=== PATIENT | male | born 1945 | race Caucasian/White ===

== ENCOUNTER 2016-10-14 09:16 | Day surgery (SDC) | payer OTHER ==
[~2016-10-14 09:16] MED LIST: Lactated Ringers 1,000 ML IV SCH; Lidocaine 2% 5 ML SDV ONE; Propofol 200 MG/20 ML SDV ONE
--- NOTE | 2016-10-14 09:51 | PCM.PREANE ---
Preanesthetic Assessment - Anesthesia/Transfusion/Family Hx Anesthesia History: Prior Anesthesia Without Reaction Family History of Anesthesia Reaction: No Transfusion History: No Prior Transfusion(s) Intubation History: Unknown - Review of Systems General: No Symptoms Pulmonary: No Symptoms Cardiovascular: No Symptoms Gastrointestinal: Diarrhea Neurological: No Symptoms Other: Reports: None - Physical Assessment NPO Status Date: 10/13/16 NPO Status Time: 21:30 O2 Sat by Pulse Oximetry: 99 Respiratory Rate: 16 Vital Signs: Last Vital Signs Temp 36.5 C 10/14/16 09:43 Pulse 76 10/14/16 09:43 Resp 16 10/14/16 09:43 BP 156/93 H 10/14/16 09:43 Pulse Ox 99 10/14/16 09:43 Height: 1.75 m Weight: 61.689 kg ASA Class: 3 Mental Status: Alert & Oriented x3 Airway Class: Mallampati = 2 Dentition: Reports: Normal Dentition, Partial (sides) Thyro-Mental Finger Breadths: 2 Mouth Opening Finger Breadths: 3 ROM/Head Extension: Limited/Partial Lungs: Clear to auscultation, Normal respiratory effort Cardiovascular: Regular Rate, Regular Rhythm - Allergies Allergies/Adverse Reactions: Allergies Allergy/AdvReac Type Severity Reaction Status Date / Time No Known Allergies Allergy Verified 09/27/13 15:34 - Blood Blood Available: No - Anesthesia Plan Pre-Op Medication Ordered: None - Acknowledgements Anesthesia Type Planned: MAC Pt an Appropriate Candidate for the Planned Anesthesia: Yes Alternatives and Risks of Anesthesia Discussed w Pt/Guardian: Yes Pt/Guardian Understands and Agrees with Anesthesia Plan: Yes PreAnesthesia Questionnaire Cardiovascular History: Reports: CAD, High Cholesterol, Hypertension, PVD Other Cardiovascular History: coronary artherosclerosis Respiratory History: Reports: Sleep Apnea Other Respiratory History: sleep apnea in the past (had uvuloplasty for this) Gastrointestinal History: Reports: Chronic Diarrhea, Colon Polyp, Irritable Bowel Syndrome Genitourinary History: Reports: Renal Calculus Other Genitourinary History: h/o prostate cancer 4 years ago wit radical prostatectomy Musculoskeletal History: Reports: Arthritis, Fracture, Osteoporosis Other Musculoskeletal History: hx fx hand Hematologic History: Reports: Anemia Oncologic (Cancer) History: Reports: Basal Cell Carcinoma, Prostate Dermatologic History: Reports: Other (See Below) Other Dermatologic History: raynauds - Past Surgical History Head Surgeries/Procedures: Reports: None HEENT Surgical History: Reports: Cataract Surgery, Tonsillectomy, Other (See Below) Other HEENT Surgeries/Procedures: hx cataract surgery and eye surgery for infection, hx of uvuloplasty with tonsillectomy Cardiovascular Surgical History: Reports: Coronary Artery Bypass (x2 5 years ago ), Vascular Surgery ( left fem-pop bypass 5 years ago) GI Surgical History: Reports: Appendectomy, Colonoscopy Male Surgical History: Reports: Prostatectomy Dermatological Surgical History: Reports: Skin Biopsy - SUBSTANCE USE Smoking Status *Q: Former Smoker Tobacco Use Within Last Twelve Months: No Recreational Drug Use History: No - HOME MEDS Home Medications: Home Meds Aspirin [Morton Aspirin] 81 mg PO DAILY 10/12/16 [History] Cholecalciferol (Vitamin D3) [Vitamin D3] 1,000 units PO DAILY 10/12/16 [History ] Leuprolide [Lupron Depot 3-Month] 1 injection IM ASDIRECTED 10/12/16 [History] Lisinopril 10 mg PO BEDTIME 10/12/16 [History] Loperamide HCl [Imodium A-D] 2 mg PO ASDIRECTED PRN 10/12/16 [History] Multivitamin [Multivitamins] 1 tab PO DAILY 10/12/16 [History] Simvastatin [Zocor] 40 mg PO DAILY 10/12/16 [History] - CURRENT (IN HOUSE) MEDS Current Meds: Current Medications Lactated Ringer's (Ringers, Lactated) 1,000 mls @ 125 mls/hr IV ASDIRECTED [facility] Last Admin: 10/14/16 09:41 Dose: 125 mls/hr Discontinued Medications Lidocaine (Xylocaine-Mpf 2%) Confirm Administered Dose 5 ml .ROUTE .STK-MED ONE Stop: 10/14/16 07:35 Propofol (Diprivan 20 Ml) Confirm Administered Dose 400 mg .ROUTE .STK-MED ONE Stop: 10/14/16 07:35
[2016-10-14] MEDS ORDERED: Lactated Ringers 1,000 ML IV SCH (11:15)
--- NOTE | 2016-10-14 11:17 | PCM.OPNOTE ---
- General Post-Op/Procedure Note Date of Surgery/Procedure: 10/14/16 Operative Procedure(s): Colonoscopy Pre Op Diagnosis: Change in bowel habits. Personal history of colon polyps. Post-Op Diagnosis: No evidence of neoplasia Anesthesia Technique: MAC (ASA III) Primary Surgeon: Andrew Moreland Condition: Good Free Text/Narrative:: Dictation [id number] CPT [id number]
--- NOTE | 2016-10-14 11:35 | PCM.POSTAN ---
POST ANESTHESIA ASSESSMENT - MENTAL STATUS Mental Status: alert, oriented - RESPIRATORY Respiratory Status: respiratory rate WNL, airway patent, O2 saturation stable - CARDIOVASCULAR CV Status: pulse rate WNL, blood pressure stable - GASTROINTESTINAL GI Status: no symptoms - POST OP HYDRATION Hydration Status: adequate & stable - OBSERVATIONS Free Text/Narrative:: no anesthesia problems
[2016-10-14 11:46] VITALS: BP 122/68
--- NOTE | 2016-10-14 13:54 | OR ---
SURGEON: Andrew Moreland M.D. DATE OF PROCEDURE: 10/14/2016 OPERATION PERFORMED: Colonoscopy. ANESTHESIA: MAC. ASA CLASSIFICATION: III. PREOPERATIVE DIAGNOSES: 1. Change in bowel habits. 2. Personal history of colon polyps. POSTOPERATIVE DIAGNOSIS: No evidence of neoplasia. DESCRIPTION OF PROCEDURE: The patient was taken to the endoscopy room and positioned on the endoscopy table in the left lateral decubitus position. Time-out was called for appropriate identification of the patient and procedure. Monitored anesthesia care was provided. The colonoscope was inserted into the rectum and advanced with minimal difficulty to the cecum, where the colonoscope was retroflexed to visualize the ascending colon from below. The colonoscope was then straightened and slowly withdrawn. The cecum, ascending colon, hepatic flexure, transverse colon, splenic flexure, descending colon, sigmoid colon, and rectum were very well visualized. No tumors, polyps, diverticula, or angiodysplastic changes were noted anywhere throughout the lower gastrointestinal tract. The colonoscope was withdrawn to the rectum and retroflexed to visualize the anal orifice from above. Again, no tumors or polyps were seen and there were no acute hemorrhoidal changes. The colonoscope was straightened, the rectum aspirated, and the colonoscope removed. The patient tolerated the procedure well and was taken to the recovery room in stable condition. TERRI / LIVIA /[id number]
== END 2016-10-14 12:25 | disposition home or self-care (01) ==
LOC: MW.SDS 09:16
PROVIDERS: ATTEND Surgery
PROC: 0DJD8ZZ Inspection of Lower Intestinal Tract, Via Natural or Artificial Opening Endoscopic (ICD-10-PCS; principal; 2016-10-14)
DX: Z12.11 Encounter for screening for malignant neoplasm of colon (principal); Z86.010 Personal history of colon polyps; D64.9 Anemia, unspecified; N52.9 Male erectile dysfunction, unspecified; I10 Essential (primary) hypertension; K58.9 Irritable bowel syndrome, unspecified; M81.0 Age-related osteoporosis without current pathological fracture; I25.10 Atherosclerotic heart disease of native coronary artery without angina pectoris; E78.00 Pure hypercholesterolemia, unspecified; M19.90 Unspecified osteoarthritis, unspecified site; Z85.46 Personal history of malignant neoplasm of prostate; Z87.442 Personal history of urinary calculi; Z85.828 Personal history of other malignant neoplasm of skin; Z87.891 Personal history of nicotine dependence; Z80.0 Family history of malignant neoplasm of digestive organs; Z79.82 Long term (current) use of aspirin; Z79.899 Other long term (current) drug therapy; Z95.1 Presence of aortocoronary bypass graft; Z98.49 Cataract extraction status, unspecified eye; Z90.49 Acquired absence of other specified parts of digestive tract; Z90.79 Acquired absence of other genital organ(s); Z90.89 Acquired absence of other organs; Z98.890 Other specified postprocedural states
CPT/HCPCS: 45378; J7120; J2704

== ENCOUNTER 2016-12-12 13:53 | Inpatient (IN) | payer MEDICARE, OTHER ==
--- NOTE | 2016-12-12 14:20 | EDM.PDOC ---
ED HPI GENERAL MEDICAL PROBLEM - General Chief Complaint: Abdominal Pain Stated Complaint: ABD PAIN Time Seen by Provider: 12/12/16 14:10 Source of Information: Reports: Patient, Family History Limitations: Reports: No Limitations - History of Present Illness INITIAL COMMENTS - FREE TEXT/NARRATIVE: HISTORY AND PHYSICAL: History of present illness: [Patient comes to the emergency room accompanied by a family member with complaints of lower abdominal discomfort. His symptoms have been present for the past couple of months and he has been following regularly with his PCP Dr. Brennon Garcia and his surgeon Dr. Moreland. Patient recently had a colonoscopy that was clear. CT abdomen and pelvis of December 01, 2016 showed abnormal thickening to the distal ileal wall, subcutaneous nodules within the ventral aspect of the pelvis, and a small to moderate amount of abdominal ascites. He is scheduled to have a needle biopsy of the nodules to his pelvis on Tuesday. Over the past 2-3 days patient's lower abdominal discomfort has increased. He has had less urine output than usual, in spite of pushing fluids. Lower abdomen is more bloated than it was a week ago. Has had a diminished appetite over the past 2-3 days. He is a history of prostate cancer for which he receives anti- testosterone injections. Has not checked his temperature but felt fever and chills yesterday. Complains of some nausea today but has had no vomiting. Had several small hard stools this morning but continues to feel full. No blood in his stools. He's had no chest pain shortness of breath or difficulty breathing. Right lower leg and foot numbness and mild swelling. He is scheduled to follow-up with his PCP about this complaint on December 15. He denies any leg pain or calf pain.] Review of systems: As per history of present illness and below otherwise all systems reviewed and negative. Past medical history: As per history of present illness and as reviewed below otherwise noncontributory. Surgical history: As per history of present illness and as reviewed below otherwise noncontributory. Social history: No reported history of drug or alcohol abuse. Family history: As per history of present illness and as reviewed below otherwise noncontributory. Physical exam: Gen.: Well-developed, cachectic appearing elderly male in no acute distress. HEENT: Atraumatic, normocephalic. Oral mucous membranes are pink and mildly dry. Neck supple no lymphadenopathy. Lungs: Clear to auscultation, breath sounds equal bilaterally. Heart: S1S2, regular rate and rhythm. Abdomen: Bowel sounds are present to right and left upper abdomen. Very quiet to lower left and right quadrants. Is tender with palpation throughout entire abdomen. Mild Distention inferior to umbilicus. Half dollar sized nodules are palpated to right and left lower abdominal quadrants. No guarding or rebound. Negative for costovertebral tenderness. Back: Spine and ribs are visible and nontender with palpation. Pelvis: Stable nontender. Genitourinary: Deferred. Rectal: Deferred. Extremities: Atraumatic, negative for cords or calf pain. Mild nonpitting edema swelling is noted to right dorsum of foot. No pain with palpation. Neurovascular unremarkable. Neuro: Awake, alert, oriented. Motor and sensory unremarkable throughout. Exam nonfocal. Diagnostics: [CBC, CMP, UA, BNP, chest x-ray, abd x-ray] Therapeutics: [1 liter normal saline IV, Zofran 4mg IV] Impression: [partial small bowel obstruction] Plan: [Chest x-ray shows no change from previous exam. Abdominal x-ray shows partial small bowel obstruction. Labs are stable. Discussed patient's condition with Dr. Bruno Thibodeaux who agrees to accept patient for admission. Dr. Andrew Moreland is notified of patient's admission. Patient is in agreement with admission. ] Definitive disposition and diagnosis as appropriate pending reevaluation and review of above. Abdomen Pain Score (Numeric/FACES): 8 - Related Data Allergies Allergy/AdvReac Type Severity Reaction Status Date / Time No Known Allergies Allergy Verified 12/12/16 14:07 Home Meds: Home Meds Aspirin [Treutlen Aspirin] 81 mg PO DAILY 10/12/16 [History] Cholecalciferol (Vitamin D3) [Vitamin D3] 1,000 units PO DAILY 10/12/16 [History ] Leuprolide [Lupron Depot 3-Month] 1 injection IM ASDIRECTED 10/12/16 [History] Lisinopril 10 mg PO BEDTIME 10/12/16 [History] Loperamide HCl [Imodium A-D] 2 mg PO ASDIRECTED PRN 10/12/16 [History] Multivitamin [Multivitamins] 1 tab PO DAILY 10/12/16 [History] Simvastatin [Zocor] 40 mg PO DAILY 10/12/16 [History] Dicyclomine [Bentyl] 1 cap PO QID 12/12/16 [History] Past Medical History Cardiovascular History: Reports: CAD, High Cholesterol, Hypertension, PVD Other Cardiovascular History: coronary artherosclerosis Respiratory History: Reports: Sleep Apnea Other Respiratory History: sleep apnea in the past (had uvuloplasty for this) Gastrointestinal History: Reports: Chronic Diarrhea, Colon Polyp, Irritable Bowel Syndrome Genitourinary History: Reports: Renal Calculus Other Genitourinary History: h/o prostate cancer 4 years ago wit radical prostatectomy Musculoskeletal History: Reports: Arthritis, Fracture, Osteoporosis Other Musculoskeletal History: hx fx hand Hematologic History: Reports: Anemia Oncologic (Cancer) History: Reports: Basal Cell Carcinoma, Prostate Dermatologic History: Reports: Other (See Below) Other Dermatologic History: raynauds - Past Surgical History Head Surgeries/Procedures: Reports: None HEENT Surgical History: Reports: Cataract Surgery, Tonsillectomy, Other (See Below) Other HEENT Surgeries/Procedures: hx cataract surgery and eye surgery for infection, hx of uvuloplasty with tonsillectomy Cardiovascular Surgical History: Reports: Coronary Artery Bypass, Vascular Surgery GI Surgical History: Reports: Appendectomy, Colonoscopy Male Surgical History: Reports: Prostatectomy Dermatological Surgical History: Reports: Skin Biopsy Social & Family History - Family History Family Medical History: Noncontributory - Tobacco Use Smoking Status *Q: Never Smoker Used Tobacco, but Quit: Yes Month Tobacco Last Used: quit smoking 20 yrs ago - Recreational Drug Use Recreational Drug Use: No ED ROS GENERAL - Review of Systems Review Of Systems: ROS reveals no pertinent complaints other than HPI. ED EXAM, GI/ABD - Physical Exam Exam: See Below Course - Vital Signs Last Recorded V/S: Last Vital Signs Temp 95.7 F 12/12/16 16:31 Pulse 82 12/12/16 16:31 Resp 15 12/12/16 16:31 BP 129/69 12/12/16 16:31 Pulse Ox 93 L 12/12/16 16:31 - Orders/Labs/Meds Orders: Active Orders 24 hr Category Date Time Status Patient Status [ADT] Stat ADT 12/12/16 17:01 Active Abdomen 2V AP Flat Upright [CR] Stat Exams 12/12/16 14:17 Taken Chest 2V [CR] Stat Exams 12/12/16 14:43 Taken Sodium Chloride 0.9% [Normal Saline] 1,000 ml Med 12/12/16 14:45 Active IV STAT Medication Orders Sodium Chloride (Normal Saline) 1,000 mls @ 999 mls/hr IV STAT [facility]ADO Last Admin: 12/12/16 15:31 Dose: 999 mls/hr Labs: Laboratory Tests 12/12/16 12/12/16 12/12/16 Range/Units 15:57 15:57 15:57 WBC 5.02 (4.0-11.0) K/uL RBC 4.29 L (4.50-5.90) M/uL Hgb 11.9 L (13.0-17.0) g/dL Hct 36.4 L (38.0-50.0) % MCV 84.8 (80.0-98.0) fL MCH 27.7 (27.0-32.0) pg MCHC 32.7 (31.0-37.0) g/dL RDW Std Deviation 41.0 (28.0-62.0) fl RDW Coeff of Rosina 14 (11.0-15.0) % Plt Count 230 (150-400) K/uL MPV 8.70 (7.40-12.00) fL Neut % (Auto) 86.2 H (48.0-80.0) % Lymph % (Auto) 1.6 L (16.0-40.0) % [place] % (Auto) 11.4 (0.0-15.0) % Eos % (Auto) 0.6 (0.0-7.0) % Baso % (Auto) 0.2 (0.0-1.5) % Neut # (Auto) 4.3 (1.4-5.7) K/uL Lymph # (Auto) 0.1 L (0.6-2.4) K/uL [place] # (Auto) 0.6 (0.0-0.8) K/uL Eos # (Auto) 0.0 (0.0-0.7) K/uL Baso # (Auto) 0.0 (0.0-0.1) K/uL Nucleated RBC % 1.1 /100WBC Nucleated RBCs # 0 K/uL Sodium 139 (136-146) mmol/L Potassium 3.5 (3.5-5.1) mmol/L Chloride 103 (98-110) mmol/L Carbon Dioxide 25 (21-31) mmol/L BUN 13 (6.0-23.0) mg/dL Creatinine 0.7 (0.6-1.5) mg/dL Est Cr Clr Drug Dosing 79.87 mL/min Estimated GFR (MDRD) > 60.0 ml/min Glucose 83 (60-110) mg/dL Calcium 8.9 (8.8-10.8) mg/dL Total Bilirubin 0.4 (0.1-1.5) mg/dL AST 16 (5-40) IU/L ALT 10 (8-54) IU/L Alkaline Phosphatase 66 (40-150) B-Natriuretic Peptide 125 H (<100) PG/ML Total Protein 5.8 L (6.0-8.0) g/dL Albumin 3.1 L (3.4-4.8) g/dL Globulin 2.7 (2.0-3.5) g/dL Albumin/Globulin Ratio 1.2 L (1.3-2.8) Amylase 58 (10-90) U/L Lipase 46 (7-80) U/L Urine Color Urine Appearance Urine pH (5.0-8.0) Ur Specific [place] (1.001-1.035) Urine Protein (NEGATIVE) mg/dL Urine Glucose (UA) (NEGATIVE) mg/dL Urine Ketones (NEGATIVE) mg/dL Urine Occult Blood (NEGATIVE) Urine Nitrite (NEGATIVE) Urine Bilirubin (NEGATIVE) Urine Ictotest Urine Urobilinogen (<2.0) EU/dL Ur Leukocyte Esterase (NEGATIVE) Urine RBC (0-2/HPF) Urine WBC (0-5/HPF) Ur Epithelial Cells (NONE-FEW) Calcium Oxalate Crystal (NEGATIVE) Urine Bacteria (NEGATIVE) Hyaline Casts (0-2/LPF) Urine Mucus (NONE-MOD) 12/12/16 Range/Units 16:25 WBC (4.0-11.0) K/uL RBC (4.50-5.90) M/uL Hgb (13.0-17.0) g/dL Hct (38.0-50.0) % MCV (80.0-98.0) fL MCH (27.0-32.0) pg MCHC (31.0-37.0) g/dL RDW Std Deviation (28.0-62.0) fl RDW Coeff of Rosina (11.0-15.0) % Plt Count (150-400) K/uL MPV (7.40-12.00) fL Neut % (Auto) (48.0-80.0) % Lymph % (Auto) (16.0-40.0) % [place] % (Auto) (0.0-15.0) % Eos % (Auto) (0.0-7.0) % Baso % (Auto) (0.0-1.5) % Neut # (Auto) (1.4-5.7) K/uL Lymph # (Auto) (0.6-2.4) K/uL [place] # (Auto) (0.0-0.8) K/uL Eos # (Auto) (0.0-0.7) K/uL Baso # (Auto) (0.0-0.1) K/uL Nucleated RBC % /100WBC Nucleated RBCs # K/uL Sodium (136-146) mmol/L Potassium (3.5-5.1) mmol/L Chloride (98-110) mmol/L Carbon Dioxide (21-31) mmol/L BUN (6.0-23.0) mg/dL Creatinine (0.6-1.5) mg/dL Est Cr Clr Drug Dosing mL/min Estimated GFR (MDRD) ml/min Glucose (60-110) mg/dL Calcium (8.8-10.8) mg/dL Total Bilirubin (0.1-1.5) mg/dL AST (5-40) IU/L ALT (8-54) IU/L Alkaline Phosphatase (40-150) B-Natriuretic Peptide (<100) PG/ML Total Protein (6.0-8.0) g/dL Albumin (3.4-4.8) g/dL Globulin (2.0-3.5) g/dL Albumin/Globulin Ratio (1.3-2.8) Amylase (10-90) U/L Lipase (7-80) U/L Urine Color YELLOW Urine Appearance CLEAR Urine pH 6.0 (5.0-8.0) Ur Specific [place] >= 1.030 (1.001-1.035) Urine Protein 30 (NEGATIVE) mg/dL Urine Glucose (UA) NEGATIVE (NEGATIVE) mg/dL Urine Ketones 15 H (NEGATIVE) mg/dL Urine Occult Blood NEGATIVE (NEGATIVE) Urine Nitrite NEGATIVE (NEGATIVE) Urine Bilirubin SMALL H (NEGATIVE) Urine Ictotest NEGATIVE Urine Urobilinogen 0.2 (<2.0) EU/dL Ur Leukocyte Esterase NEGATIVE (NEGATIVE) Urine RBC NONE SEEN (0-2/HPF) Urine WBC NONE SEEN (0-5/HPF) Ur Epithelial Cells FEW (NONE-FEW) Calcium Oxalate Crystal FEW (NEGATIVE) Urine Bacteria FEW (NEGATIVE) Hyaline Casts 4-5 (0-2/LPF) Urine Mucus HEAVY (NONE-MOD) Meds: Medications Generic Name Dose Route Start Last Admin Trade Name Freq PRN Reason Stop Dose Admin Sodium Chloride 1,000 mls @ 999 mls/hr 12/12/16 14:45 12/12/16 15:31 Normal Saline IV 999 mls/hr STAT AMADO Administration Discontinued Medications Generic Name Dose Route Start Last Admin Trade Name Freq PRN Reason Stop Dose Admin Ondansetron HCl 4 mg 12/12/16 14:34 12/12/16 15:36 Zofran IVPUSH 12/12/16 14:35 4 mg ONETIME ONE Administration Departure - Departure Time of Disposition: 17:05 Disposition: Admitted As Inpatient 65 Condition: Fair Clinical Impression: Small bowel obstruction, partial - Discharge Information Referrals: Brennon Garcia MD [Primary Care Provider] - Forms: ED Department Discharge - My Orders Last 24 Hours: My Active Orders 12/12/16 14:17 Abdomen 2V AP Flat Upright [CR] Stat 12/12/16 14:43 Chest 2V [CR] Stat 12/12/16 14:45 Sodium Chloride 0.9% [Normal Saline] 1,000 ml IV STAT 12/12/16 17:01 Patient Status [ADT] Stat - Assessment/Plan Last 24 Hours: My Active Orders 12/12/16 14:17 Abdomen 2V AP Flat Upright [CR] Stat 12/12/16 14:43 Chest 2V [CR] Stat 12/12/16 14:45 Sodium Chloride 0.9% [Normal Saline] 1,000 ml IV STAT 12/12/16 17:01 Patient Status [ADT] Stat
[2016-12-12] MEDS ORDERED: Ondansetron 4 MG/2 ML SDV IVPUSH ONE (14:34)
[2016-12-12] MEDS: Sodium Chloride 0.9% 1,000 ML IV SCH ×3 (15:31→18:42)
[2016-12-12 16:37] LABS: CHLORIDE,CL 103 mmol/L (98-110); SODIUM,NA 139 mmol/L (136-146)
[2016-12-12] MEDS ORDERED: Morphine 2 MG/ML Syringe IVPUSH PRN (18:27)
[2016-12-12] MEDS ORDERED: Ondansetron 4 MG/2 ML SDV IVPUSH PRN (18:27)
[2016-12-12] MEDS ORDERED: Heparin Sodium 5,000 Units/ML Vial SUBCUT SCH (22:00)
--- NOTE | 2016-12-12 22:04 | PCM.HP ---
H&P History of Present Illness - General Admit Problem/Dx: Admission Diagnosis/Problem Admission Diagnosis/Problem Small bowel obstruction - History of Present Illness Initial Comments - Free Text/Narative: 71 yo male with pmh of metastatic prostate cancer s/p prostatectomy recently switched to lupron. Since June he is being having abdominal cramping. In he had colonoscopy with no evidence of neoplasm. He had a CT scan of abdomen on 12/01/16 which showed extensive thickening of distal ileal wall with irregular enhancement as well as ventral pelvic wall nodules. He has been schedual for needle biopsy of nodules and referred to Dr. Parekh in [place]. Today the crampy worsening and he reported to the ED. He does report a stool today. He has nausea but no emesis. Abdominal x-ray reported mildly distended small bowel loops. Dr. Moreland was consulted in the ED. Abdomen Pain Score (Numeric/FACES): 4 - Related Data Allergies/Adverse Reactions: Allergies Allergy/AdvReac Type Severity Reaction Status Date / Time No Known Allergies Allergy Verified 12/12/16 14:07 Home Medications: Home Meds Aspirin [[place] Aspirin] 81 mg PO DAILY 10/12/16 [History] Cholecalciferol (Vitamin D3) [Vitamin D3] 1,000 units PO DAILY 10/12/16 [History ] Leuprolide [Lupron Depot 3-Month] 1 injection IM ASDIRECTED 10/12/16 [History] Lisinopril 10 mg PO BEDTIME 10/12/16 [History] Loperamide HCl [Imodium A-D] 2 mg PO ASDIRECTED PRN 10/12/16 [History] Multivitamin [Multivitamins] 1 tab PO DAILY 10/12/16 [History] Simvastatin [Zocor] 40 mg PO DAILY 10/12/16 [History] Dicyclomine [Bentyl] 1 cap PO QID 12/12/16 [History] Morphine 2 mg IVPUSH Q4H PRN #0 syringe 12/13/16 [Rx] Ondansetron [Zofran] 4 mg IVPUSH Q4H PRN #0 vial 12/13/16 [Rx] Sodium Chloride 0.9% [Normal Saline] 125 ml IV ASDIRECTED #0 bag 12/13/16 [Rx] Past Medical History HEENT History: Reports: None Cardiovascular History: Reports: CAD, High Cholesterol, Hypertension, PVD Other Cardiovascular History: coronary artherosclerosis Respiratory History: Reports: Sleep Apnea Other Respiratory History: sleep apnea in the past (had uvuloplasty for this) Gastrointestinal History: Reports: Chronic Diarrhea, Colon Polyp, Irritable Bowel Syndrome Genitourinary History: Reports: Renal Calculus Other Genitourinary History: h/o prostate cancer 4 years ago wit radical prostatectomy Musculoskeletal History: Reports: Arthritis, Fracture, Osteoporosis Other Musculoskeletal History: hx fx hand Hematologic History: Reports: Anemia Oncologic (Cancer) History: Reports: Basal Cell Carcinoma, Prostate Dermatologic History: Reports: Other (See Below) Other Dermatologic History: raynauds - Infectious Disease History Infectious Disease History: Reports: Chicken Pox, Shingles - Past Surgical History Head Surgeries/Procedures: Reports: None HEENT Surgical History: Reports: Cataract Surgery, Tonsillectomy, Other (See Below) Other HEENT Surgeries/Procedures: hx cataract surgery and eye surgery for infection, hx of uvuloplasty with tonsillectomy Cardiovascular Surgical History: Reports: Coronary Artery Bypass, Vascular Surgery Respiratory Surgical History: Reports: None GI Surgical History: Reports: Appendectomy, Colonoscopy Male Surgical History: Reports: Prostatectomy Dermatological Surgical History: Reports: Skin Biopsy Social & Family History - Family History Family Medical History: Noncontributory Cardiac: Reports: Other (See Below) Other Cardiac Family History: Father had a pacemaker Oncologic: Reports: Other (See Below) Other Oncologic Family History: Family Hx of CA of unknown type - Tobacco Use Smoking Status *Q: Never Smoker Used Tobacco, but Quit: Yes Month Tobacco Last Used: quit smoking 20 yrs ago Second Hand Smoke Exposure: No - Caffeine Use Caffeine Use: Reports: Coffee - Recreational Drug Use Recreational Drug Use: No H&P Review of Systems - Review of Systems: Review Of Systems: ROS reveals no pertinent complaints other than HPI. Exam - Exam Exam: See Below - Vital Signs Vital Signs: Last Vital Signs Temp 37.6 C 12/12/16 20:00 Pulse 71 12/12/16 20:00 Resp 18 12/12/16 20:00 BP 121/71 12/12/16 20:00 Pulse Ox 96 12/12/16 20:00 Weight: 59 kg - Exam General: Alert, Oriented, 4 HEENT: Mucosa Moist & [place] Neck: Supple Lungs: Clear to Auscultation, Normal Respiratory Effort Cardiovascular: Regular Rate, Regular Rhythm GI/Abdominal Exam: Soft, No Distention, Mass (two palpalple nodules in the left and right lower quadrant) Extremities: Normal Inspection, No Pedal Edema - Patient Data Result Diagrams: 12/13/16 05:43 12/13/16 05:43 *Q Meaningful Use (ADM) - VTE *Q VTE Criteria *Q: - Stroke *Q Stroke Criteria *Q: - AMI *Q AMI Criteria *Q: Problem List Initiated/Reviewed/Updated: Yes Orders Last 24hrs: Active Orders 24 hr Category Date Time Status Antiembolic Devices [RC] PER UNIT ROUTINE Care 12/12/16 21:55 Active Oxygen Therapy [RC] PRN Care 12/12/16 21:54 Active VTE/DVT Education [RC] PER UNIT ROUTINE Care 12/12/16 21:54 Active Vital Signs [RC] Q4H Care 12/12/16 21:54 Active NPO [Nothing Per Oral Diet] [DIET] Diet 12/12/16 Dinner Active BASIC METABOLIC PANEL,BMP [CHEM] Routine Lab 12/13/16 05:11 Ordered CBC WITH AUTO DIFF [HEME] Routine Lab 12/13/16 05:11 Ordered Heparin Sodium Med 12/12/16 22:00 Active 5,000 units SUBCUT Q8H Morphine Med 12/12/16 18:27 Active 2 mg IVPUSH Q4H PRN Ondansetron [Zofran] Med 12/12/16 18:27 Active 4 mg IVPUSH Q4H PRN Sodium Chloride 0.9% [Normal Saline] 1,000 ml Med 12/12/16 18:30 Active IV ASDIRECTED Sequential Compression Device [OM.PC] Per Unit Routine Oth 12/12/16 21:55 Ordered Resuscitation Status Routine Resus Stat 12/12/16 21:54 Ordered Medication Orders Heparin Sodium (Porcine) (Heparin Sodium) 5,000 units SUBCUT Q8H [facility] Sodium Chloride (Normal Saline) 1,000 mls @ 999 mls/hr IV STAT [facility] Last Infusion: 12/12/16 16:32 Dose: 999 mls/hr Admin: 12/12/16 15:31 Dose: 999 mls/hr Sodium Chloride (Normal Saline) 1,000 mls @ 125 mls/hr IV ASDIRECTED [facility] Last Admin: 08/13/17 18:42 Dose: 125 mls/hr Morphine Sulfate (Morphine) 2 mg IVPUSH Q4H PRN PRN Reason: Pain Ondansetron HCl (Zofran) 4 mg IVPUSH Q4H PRN PRN Reason: Nausea/Vomiting Assessment/Plan Comment:: 71 yo male with pmh of metastatic prostate cancer who present with partial small bowel obstruction and CT scan suspicious for malignancy. Will keep NPO, IV fluids, with morphine for pain control.
[2016-12-13] MEDS: Sodium Chloride 0.9% 1,000 ML IV SCH ×2 (02:37→10:48)
[2016-12-13 06:34] LABS: CHLORIDE,CL 109 mmol/L (98-110); SODIUM,NA 139 mmol/L (136-146)
--- NOTE | 2016-12-13 10:31 | PCM.PN ---
- General Info Date of Service: 12/13/16 Admission Dx/Problem (Free Text): Admission Diagnosis/Problem Admission Diagnosis/Problem Small bowel obstruction - Patient Data Vitals - Most Recent: Last Vital Signs Temp 97.0 F 12/13/16 08:00 Pulse 74 12/13/16 08:00 Resp 17 12/13/16 08:00 BP 118/59 L 12/13/16 08:00 Pulse Ox 96 12/13/16 08:00 Weight - Most Recent: 59 kg I&O - Last 24 Hours: Intake & Output 12/12/16 12/13/16 12/13/16 22:59 06:59 14:59 Intake Total 1000 Output Total 180 Balance 820 Lab Results Last 24 Hours: Laboratory Results - last 24 hr 12/13/16 12/13/16 Range/Units 05:43 05:43 WBC 2.73 L (4.0-11.0) K/uL RBC 3.67 L (4.50-5.90) M/uL Hgb 10.2 L (13.0-17.0) g/dL Hct 30.8 L (38.0-50.0) % MCV 83.9 (80.0-98.0) fL MCH 27.8 (27.0-32.0) pg MCHC 33.1 (31.0-37.0) g/dL RDW Std Deviation 41.3 (28.0-62.0) fl RDW Coeff of Rosina 14 (11.0-15.0) % Plt Count 218 (150-400) K/uL MPV 8.50 (7.40-12.00) fL Neut % (Auto) 83.8 H (48.0-80.0) % Lymph % (Auto) 2.9 L (16.0-40.0) % [place] % (Auto) 11.4 (0.0-15.0) % Eos % (Auto) 1.5 (0.0-7.0) % Baso % (Auto) 0.4 (0.0-1.5) % Neut # (Auto) 2.3 (1.4-5.7) K/uL Lymph # (Auto) 0.1 L (0.6-2.4) K/uL [place] # (Auto) 0.3 (0.0-0.8) K/uL Eos # (Auto) 0.0 (0.0-0.7) K/uL Baso # (Auto) 0.0 (0.0-0.1) K/uL Nucleated RBC % 1.6 /100WBC Nucleated RBCs # 0 K/uL Sodium 139 (136-146) mmol/L Potassium 3.7 (3.5-5.1) mmol/L Chloride 109 (98-110) mmol/L Carbon Dioxide 22 (21-31) mmol/L BUN 9 (6.0-23.0) mg/dL Creatinine 0.6 (0.6-1.5) mg/dL Est Cr Clr Drug Dosing 92.87 mL/min Estimated GFR (MDRD) > 60.0 ml/min Glucose 78 (60-110) mg/dL Calcium 7.6 L (8.8-10.8) mg/dL Med Orders - Current: Current Medications Sodium Chloride (Normal Saline) 1,000 mls @ 999 mls/hr IV STAT [facility] Last Infusion: 12/12/16 16:32 Dose: Infused Sodium Chloride (Normal Saline) 1,000 mls @ 125 mls/hr IV ASDIRECTED [facility] Last Admin: 12/13/16 02:37 Dose: 125 mls/hr Morphine Sulfate (Morphine) 2 mg IVPUSH Q4H PRN PRN Reason: Pain Last Admin: 12/12/16 22:14 Dose: 2 mg Ondansetron HCl (Zofran) 4 mg IVPUSH Q4H PRN PRN Reason: Nausea/Vomiting Last Admin: 12/12/16 22:07 Dose: 4 mg Discontinued Medications Heparin Sodium (Porcine) (Heparin Sodium) 5,000 units SUBCUT Q8H [facility] Last Admin: 12/12/16 23:01 Dose: Not Given Ondansetron HCl (Zofran) 4 mg IVPUSH ONETIME ONE Stop: 12/12/16 14:35 Last Admin: 12/12/16 15:36 Dose: 4 mg - Plan Plan:: 71 yo male with pmh of metastatic prostate cancer who present with partial small bowel obstruction and CT scan suspicious for malignancy. Will keep NPO, IV fluids, with morphine for pain control.
--- NOTE | 2016-12-13 11:08 | PCM.DCSUM1 ---
Discharge Summary - Hospital Course Brief History: This 71 yo male with pmh of metastatic prostate cancer s/p prostatectomy recently switched to lupron, CAD with hx bypass, HTN, PABLO, and PVE presented to the ED with concerns of worsening abdominal cramping. Since June he has been having abdominal cramping. In 10/14/16 he had a colonoscopy with no evidence of neoplasm. He then had a CT scan of abdomen on 12/01/16 which showed extensive thickening of distal ileal wall with irregular enhancement as well as ventral pelvic wall nodules. He was scheduled for needle biopsy of nodulesm which could not be completed last week and referred to Dr. Parekh in [place] by Dr. Moreland, General surgery. Yesterday the abdominal cramping worsened and he reported to the ED. He did report a stool yesterdat. He has nausea but no emesis. Abdominal x-ray reported mildly distended small bowel loops. Dr. Moreland was consulted in the ED. - Discharge Data Discharge Date: 12/13/16 Discharge Disposition: Home, Self-Care 01 Condition: Fair - Discharge Diagnosis/Problem(s) (1) Small bowel obstruction, partial SNOMED Code(s): 250794463 ICD Code: K56.69 - OTHER INTESTINAL OBSTRUCTION Status: Acute Current Visit: Yes (2) Prostate cancer metastatic to bone SNOMED Code(s): 05643026 ICD Code: C61 - MALIGNANT NEOPLASM OF PROSTATE; C79.51 - SECONDARY MALIGNANT NEOPLASM OF BONE Status: Chronic Current Visit: Yes (3) CAD (coronary artery disease) SNOMED Code(s): 26709575 ICD Code: I25.10 - ATHSCL HEART DISEASE OF [place] CORONARY ARTERY W/O ANG PCTRS Status: Chronic Current Visit: Yes Qualifiers: Coronary Disease-Associated Artery/Lesion type: [place] artery [place] vs. transplanted heart: [place] heart Associated angina: without angina Qualified Code(s): I25.10 - Atherosclerotic heart disease of [place] coronary artery without angina pectoris (4) Dyslipidemia SNOMED Code(s): 563885252 ICD Code: E78.5 - HYPERLIPIDEMIA, UNSPECIFIED Status: Chronic Current Visit: Yes (5) HTN (hypertension) SNOMED Code(s): 20466270 ICD Code: I10 - ESSENTIAL (PRIMARY) HYPERTENSION Status: Chronic Current Visit: Yes Qualifiers: Hypertension type: essential hypertension Qualified Code(s): I10 - Essential (primary) hypertension (6) PABLO (obstructive sleep apnea) SNOMED Code(s): 82315333 ICD Code: G47.33 - OBSTRUCTIVE SLEEP APNEA (ADULT) (PEDIATRIC) Status: Chronic Current Visit: Yes (7) PVD (peripheral vascular disease) SNOMED Code(s): 797264055 ICD Code: I73.9 - PERIPHERAL VASCULAR DISEASE, UNSPECIFIED Status: Chronic Current Visit: Yes - Patient Summary/Data Consults: Consultations 12/12/16 22:06 Consult to Physician [CONS] Routine - Patient Instructions Diet: NPO Activity: As Tolerated - Discharge Plan Home Medications: Home Meds Aspirin [[place] Aspirin] 81 mg PO DAILY 10/12/16 [History] Cholecalciferol (Vitamin D3) [Vitamin D3] 1,000 units PO DAILY 10/12/16 [History ] Leuprolide [Lupron Depot 3-Month] 1 injection IM ASDIRECTED 10/12/16 [History] Lisinopril 10 mg PO BEDTIME 10/12/16 [History] Loperamide HCl [Imodium A-D] 2 mg PO ASDIRECTED PRN 10/12/16 [History] Multivitamin [Multivitamins] 1 tab PO DAILY 10/12/16 [History] Simvastatin [Zocor] 40 mg PO DAILY 10/12/16 [History] Dicyclomine [Bentyl] 1 cap PO QID 12/12/16 [History] Morphine 2 mg IVPUSH Q4H PRN #0 syringe 12/13/16 [Rx] Ondansetron [Zofran] 4 mg IVPUSH Q4H PRN #0 vial 12/13/16 [Rx] Sodium Chloride 0.9% [Normal Saline] 125 ml IV ASDIRECTED #0 bag 12/13/16 [Rx] Referrals: Brennon Garcia MD [Primary Care Provider] - - Discharge Summary/Plan Comment DC Time >30 min.: No Discharge Summary/Plan Comment: Discharge Diagnoses: SBO, partial Prostate ca with metastases to bone CAD hx bypass PVD HTN Dyslipidemia PABLO Hx radical prostatectomy Justin was admitted and treated with bowel rest, IVFs along with analgesia and anti-emetics. He has done well so far. Dr. Moreland, General surgery, who initially was consulted on patient from PCP, Dr. Garcia, saw patient and recommends acute transfer for further evaluation and treatment by GI speciality. Needle biopsy of subcutaneous masses to bilateral abdomen was scheduled for last week, but Radiologist unable. This was scheduled for tomorrow here in [place]. I spoke with Dr. Moreland again this morning, and he continues to feel patient needs acute transfer due to fragility of patient and if surgical intervention is needed, he will definitely need a higher level of care and would benefit from GI specialist consultation regarding the changes seen on the abdominal CT. Today he is feeling ok, abdominal cramping slightly improved, continues to have tenderness to LLQ, masses to bilateral lower quadrants palpable with no increase in pain. He is not nauseated, no vomiting. Passed scant flatus and no BM. I spoke with family and patient and they agree with transfer at this time. I spoke with Dr. Heath, ED physician, he accepted patient for acute transfer and he reported he would speak with the Hospitalist vice president media relations as well as Dr. Parekh, but to go ahead and send patient to ED and they will place him to a room after. I notified family and patient of plan along with Dr. Moreland and Dr. Thibodeaux. We will transfer patient via ground ambulance today to [facility] in [place], [place] with Dr. Heath accepting physician. - General Info Date of Service: 12/13/16 Admission Dx/Problem (Free Text: Admission Diagnosis/Problem Admission Diagnosis/Problem Small bowel obstruction - Review of Systems General: Reports: Fatigue, Malaise Pulmonary: Denies: Shortness of Breath, Cough, Sputum Cardiovascular: Reports: No Symptoms. Denies: Chest Pain, Edema Gastrointestinal: Reports: Abdominal Pain, Flatus. Denies: Diarrhea, Nausea, Vomiting Musculoskeletal: Reports: No Symptoms Neurological: Reports: No Symptoms Psychiatric: Reports: No Symptoms - Patient Data Vitals - Most Recent: Last Vital Signs Temp 97.0 F 12/13/16 08:00 Pulse 74 12/13/16 08:00 Resp 17 12/13/16 08:00 BP 118/59 L 12/13/16 08:00 Pulse Ox 96 12/13/16 08:00 Weight - Most Recent: 59 kg I&O - Last 24 hours: Intake & Output 12/12/16 12/13/16 12/13/16 22:59 06:59 14:59 Intake Total 1000 Output Total 180 Balance 820 Lab Results - Last 24 hrs: Laboratory Results - last 24 hr 12/13/16 12/13/16 Range/Units 05:43 05:43 WBC 2.73 L (4.0-11.0) K/uL RBC 3.67 L (4.50-5.90) M/uL Hgb 10.2 L (13.0-17.0) g/dL Hct 30.8 L (38.0-50.0) % MCV 83.9 (80.0-98.0) fL MCH 27.8 (27.0-32.0) pg MCHC 33.1 (31.0-37.0) g/dL RDW Std Deviation 41.3 (28.0-62.0) fl RDW Coeff of [place] 14 (11.0-15.0) % Plt Count 218 (150-400) K/uL MPV 8.50 (7.40-12.00) fL Neut % (Auto) 83.8 H (48.0-80.0) % Lymph % (Auto) 2.9 L (16.0-40.0) % [place] % (Auto) 11.4 (0.0-15.0) % Eos % (Auto) 1.5 (0.0-7.0) % Baso % (Auto) 0.4 (0.0-1.5) % Neut # (Auto) 2.3 (1.4-5.7) K/uL Lymph # (Auto) 0.1 L (0.6-2.4) K/uL [place] # (Auto) 0.3 (0.0-0.8) K/uL Eos # (Auto) 0.0 (0.0-0.7) K/uL Baso # (Auto) 0.0 (0.0-0.1) K/uL Nucleated RBC % 1.6 /100WBC Nucleated RBCs # 0 K/uL Sodium 139 (136-146) mmol/L Potassium 3.7 (3.5-5.1) mmol/L Chloride 109 (98-110) mmol/L Carbon Dioxide 22 (21-31) mmol/L BUN 9 (6.0-23.0) mg/dL Creatinine 0.6 (0.6-1.5) mg/dL Est Cr Clr Drug Dosing 92.87 mL/min Estimated GFR (MDRD) > 60.0 ml/min Glucose 78 (60-110) mg/dL Calcium 7.6 L (8.8-10.8) mg/dL Med Orders - Current: Current Medications Sodium Chloride (Normal Saline) 1,000 mls @ 999 mls/hr IV STAT [facility] Last Infusion: 12/12/16 16:32 Dose: Infused Sodium Chloride (Normal Saline) 1,000 mls @ 125 mls/hr IV ASDIRECTED [facility] Last Admin: 12/13/16 10:48 Dose: 125 mls/hr Morphine Sulfate (Morphine) 2 mg IVPUSH Q4H PRN PRN Reason: Pain Last Admin: 12/12/16 22:14 Dose: 2 mg Ondansetron HCl (Zofran) 4 mg IVPUSH Q4H PRN PRN Reason: Nausea/Vomiting Last Admin: 12/12/16 22:07 Dose: 4 mg Discontinued Medications Heparin Sodium (Porcine) (Heparin Sodium) 5,000 units SUBCUT Q8H [facility] Last Admin: 12/12/16 23:01 Dose: Not Given Ondansetron HCl (Zofran) 4 mg IVPUSH ONETIME ONE Stop: 12/12/16 14:35 Last Admin: 12/12/16 15:36 Dose: 4 mg - Exam General: Reports: Alert, Oriented, Cooperative, No Acute Distress Neck: Reports: Supple, No JVD Lungs: Reports: Clear to Auscultation, Normal Respiratory Effort Cardiovascular: Reports: Regular Rate, Regular Rhythm GI/Abdominal Exam: Soft, Distended, Tender (to palpation of left loewr quadrant and midline.), Abnormal Bowel Sounds (hypoactive), Mass (bilateral lower quadrants, subcutaneous). No: Guarding, Rigid, Rebound Neurological: Reports: No New Focal Deficit Psy/Mental Status: Reports: Alert, Normal Affect, Normal Mood *Q Meaningful Use (DIS) - VTE *Q VTE Criteria *Q: - Stroke *Q Stroke Criteria *Q: - AMI *Q AMI Criteria *Q:
--- NOTE | 2016-12-13 11:41 | PCM.CONS ---
H&P History of Present Illness - General Date of Service: 12/13/16 Admit Problem/Dx: Admission Diagnosis/Problem Admission Diagnosis/Problem Small bowel obstruction Source of Information: Patient, Family History Limitations: Reports: No Limitations - History of Present Illness Initial Comments - Free Text/Narative: Patient has been having intermittent crampy abdominal pain for the last 2-[address] scan of the abdomen did reveal significant thickening in the terminal ileum. Yesterday he had more intense abdominal pain and was no longer passing gas or having bowel movements. He presented to the emergency room last night and was admitted with a high-grade partial small bowel obstruction. He has been worked up as an outpatient in the past. A recent colonoscopy did not reveal any intracolonic pathology. Given the appearance of his distal ileum the original plan was for him to be seen in gastroenterologic consultation by Dr. Parekh. This was scheduled for next week. I do think he would still benefit from a gastroenterologic opinion. He is a very poor surgical candidate and should surgery be necessary, he would need to be in a bigger facility for that procedure. Onset of Symptoms: Reports: Gradual Duration of Symptoms: Reports: Week(s):, Chronic, Getting Worse Location: Reports: Abdomen Quality: Reports: Stabbing, Other (Cramping) Severity: Moderate Improves with: Reports: Rest Worsens with: Reports: None Context: Reports: Sick Contact Associated Symptoms: Reports: No Other Symptoms Abdomen Pain Score (Numeric/FACES): 4 - Related Data Allergies/Adverse Reactions: Allergies Allergy/AdvReac Type Severity Reaction Status Date / Time No Known Allergies Allergy Verified 12/12/16 14:07 Home Medications: Home Meds Aspirin [[place] Aspirin] 81 mg PO DAILY 10/12/16 [History] Cholecalciferol (Vitamin D3) [Vitamin D3] 1,000 units PO DAILY 10/12/16 [History ] Leuprolide [Lupron Depot 3-Month] 1 injection IM ASDIRECTED 10/12/16 [History] Lisinopril 10 mg PO BEDTIME 10/12/16 [History] Loperamide HCl [Imodium A-D] 2 mg PO ASDIRECTED PRN 10/12/16 [History] Multivitamin [Multivitamins] 1 tab PO DAILY 10/12/16 [History] Simvastatin [Zocor] 40 mg PO DAILY 10/12/16 [History] Dicyclomine [Bentyl] 1 cap PO QID 12/12/16 [History] Morphine 2 mg IVPUSH Q4H PRN #0 syringe 12/13/16 [Rx] Ondansetron [Zofran] 4 mg IVPUSH Q4H PRN #0 vial 12/13/16 [Rx] Sodium Chloride 0.9% [Normal Saline] 125 ml IV ASDIRECTED #0 bag 12/13/16 [Rx] Past Medical History HEENT History: Reports: None Cardiovascular History: Reports: CAD, High Cholesterol, Hypertension, PVD Other Cardiovascular History: coronary artherosclerosis Respiratory History: Reports: Sleep Apnea Other Respiratory History: sleep apnea in the past (had uvuloplasty for this) Gastrointestinal History: Reports: Chronic Diarrhea, Colon Polyp, Irritable Bowel Syndrome Genitourinary History: Reports: Renal Calculus Other Genitourinary History: h/o prostate cancer 4 years ago wit radical prostatectomy Musculoskeletal History: Reports: Arthritis, Fracture, Osteoporosis Other Musculoskeletal History: hx fx hand Hematologic History: Reports: Anemia Oncologic (Cancer) History: Reports: Basal Cell Carcinoma, Prostate Dermatologic History: Reports: Other (See Below) Other Dermatologic History: raynauds - Infectious Disease History Infectious Disease History: Reports: Chicken Pox, Shingles - Past Surgical History Head Surgeries/Procedures: Reports: None HEENT Surgical History: Reports: Cataract Surgery, Tonsillectomy, Other (See Below) Other HEENT Surgeries/Procedures: hx cataract surgery and eye surgery for infection, hx of uvuloplasty with tonsillectomy Cardiovascular Surgical History: Reports: Coronary Artery Bypass, Vascular Surgery Respiratory Surgical History: Reports: None GI Surgical History: Reports: Appendectomy, Colonoscopy Male Surgical History: Reports: Prostatectomy Dermatological Surgical History: Reports: Skin Biopsy Social & Family History - Family History Family Medical History: Noncontributory Cardiac: Reports: Other (See Below) Other Cardiac Family History: Father had a pacemaker Oncologic: Reports: Other (See Below) Other Oncologic Family History: Family Hx of CA of unknown type - Tobacco Use Smoking Status *Q: Never Smoker Used Tobacco, but Quit: Yes Month Tobacco Last Used: quit smoking 20 yrs ago Second Hand Smoke Exposure: No - Caffeine Use Caffeine Use: Reports: Coffee - Recreational Drug Use Recreational Drug Use: No H&P Review of Systems - Review of Systems: Review Of Systems: See Below General: Reports: Weakness, Fatigue, Decreased Appetite. Denies: Fever, Chills HEENT: Reports: No Symptoms Pulmonary: Reports: No Symptoms Cardiovascular: Reports: No Symptoms Gastrointestinal: Reports: Abdominal Pain, Decreased Appetite, Distension, Nausea. Denies: Black Stool, Bloody Stool, Constipation, Diarrhea, Flatus, Hematemesis, Hematochezia, Melena Genitourinary: Reports: No Symptoms Musculoskeletal: Reports: No Symptoms Skin: Reports: No Symptoms Psychiatric: Reports: No Symptoms Neurological: Reports: No Symptoms Hematologic/Lymphatic: Reports: No Symptoms Immunologic: Reports: No Symptoms Exam - Exam Exam: See Below - Vital Signs Vital Signs: Last Vital Signs Temp 97.0 F 12/13/16 08:00 Pulse 74 12/13/16 08:00 Resp 17 12/13/16 08:00 BP 118/59 L 12/13/16 08:00 Pulse Ox 96 12/13/16 08:00 Weight: 130 lb 1.164 oz - Exam Quality Assessment: Supplemental Oxygen General: Alert, Oriented, Cooperative, Moderate Distress HEENT: Conjunctiva Clear, Nares Patent, Pupils Equal, Pupils Reactive, PERRLA Neck: Supple Lungs: Clear to Auscultation, Normal Respiratory Effort Cardiovascular: Regular Rate, Regular Rhythm GI/Abdominal Exam: Soft, Distended, Abnormal Bowel Sounds, Mass (subcutaneous masses in both lower quadrants. He has attributed these to iron injections.). No: Guarding, Rigid, Rebound, Tender, Hernia (Male) Exam: Normal Inspection Extremities: Normal Inspection, Normal Range of Motion Peripheral Pulses: 4+: Posterior Tibial (L), Posterior Tibial (R), Dorsalis Pedis (L), Dorsalis Pedis (R) Skin: Warm, Dry, Intact - Patient Data Lab Results Last 24 hrs: Laboratory Results - last 24 hr 12/13/16 12/13/16 Range/Units 05:43 05:43 WBC 2.73 L (4.0-11.0) K/uL RBC 3.67 L (4.50-5.90) M/uL Hgb 10.2 L (13.0-17.0) g/dL Hct 30.8 L (38.0-50.0) % MCV 83.9 (80.0-98.0) fL MCH 27.8 (27.0-32.0) pg MCHC 33.1 (31.0-37.0) g/dL RDW Std Deviation 41.3 (28.0-62.0) fl RDW Coeff of Rosina 14 (11.0-15.0) % Plt Count 218 (150-400) K/uL MPV 8.50 (7.40-12.00) fL Neut % (Auto) 83.8 H (48.0-80.0) % Lymph % (Auto) 2.9 L (16.0-40.0) % Henry % (Auto) 11.4 (0.0-15.0) % Eos % (Auto) 1.5 (0.0-7.0) % Baso % (Auto) 0.4 (0.0-1.5) % Neut # (Auto) 2.3 (1.4-5.7) K/uL Lymph # (Auto) 0.1 L (0.6-2.4) K/uL Henry # (Auto) 0.3 (0.0-0.8) K/uL Eos # (Auto) 0.0 (0.0-0.7) K/uL Baso # (Auto) 0.0 (0.0-0.1) K/uL Nucleated RBC % 1.6 /100WBC Nucleated RBCs # 0 K/uL Sodium 139 (136-146) mmol/L Potassium 3.7 (3.5-5.1) mmol/L Chloride 109 (98-110) mmol/L Carbon Dioxide 22 (21-31) mmol/L BUN 9 (6.0-23.0) mg/dL Creatinine 0.6 (0.6-1.5) mg/dL Est Cr Clr Drug Dosing 92.87 mL/min Estimated GFR (MDRD) > 60.0 ml/min Glucose 78 (60-110) mg/dL Calcium 7.6 L (8.8-10.8) mg/dL Result Diagrams: 12/13/16 05:43 12/13/16 05:43 Consult PN Assessment/Plan Procedures: Procedures ASSAY OF CREATININE (10/10/14) ASSAY OF FREE TESTOSTERONE (12/02/15) ASSAY OF PSA TOTAL (04/05/16) ASSAY OF TOTAL TESTOSTERONE (08/31/16) ASSAY OF UREA NITROGEN (10/10/14) BONE IMAGING WHOLE BODY (05/01/14) CHEMO HORMON ANTINEOPL SQ/IM (08/31/16) CT ABD & PELV 1/> REGNS (12/01/16) CT SCAN FOR THERAPY GUIDE (05/01/14) DESIGN MLC DEVICE FOR IMRT (05/01/14) DIAGNOSTIC COLONOSCOPY (10/14/16) DXA BONE DENSITY AXIAL (10/30/14) MRI PELVIS W/O & W/DYE (05/01/14) NTSTY MODUL RAD TX DLVR SMPL (06/25/14) OFFICE/OUTPATIENT VISIT EST (08/31/16) OFFICE/OUTPATIENT VISIT EST (01/20/15) OFFICE/OUTPATIENT VISIT EST (10/10/14) OFFICE/OUTPATIENT VISIT NEW (05/01/14) PROTHROMBIN TIME (12/08/16) RADIATION PHYSICS CONSULT (06/25/14) RADIATION THERAPY DOSE PLAN (05/01/14) RADIATION TREATMENT AID(S) (05/01/14) RADIATION TX DELIVERY IMRT (05/01/14) RADIOTHERAPY DOSE PLAN IMRT (05/01/14) ROUTINE VENIPUNCTURE (12/08/16) SET RADIATION THERAPY FIELD (05/01/14) (1) Hypoalbuminemia SNOMED Code(s): 644217327 Code(s): E88.09 - OTH DISORDERS OF PLASMA-PROTEIN METABOLISM, NEC Priority : Medium Current Visit: Yes (2) Neutropenia SNOMED Code(s): 743156224 Code(s): D70.9 - NEUTROPENIA, UNSPECIFIED Priority: Medium Current Visit : Yes (3) Small bowel obstruction, partial SNOMED Code(s): 272351818 Code(s): K56.69 - OTHER INTESTINAL OBSTRUCTION Priority: High Current Visit: Yes (4) Dyslipidemia SNOMED Code(s): 886898060 Code(s): E78.5 - HYPERLIPIDEMIA, UNSPECIFIED Priority: Low Current Visit : Yes Problem List Initiated/Reviewed/Updated: Yes Plan: Patient would benefit from urgent gastroenterologic consultation. The etiology of his terminal ileum thickening is unclear to me. This could represent an inflammatory process or a neoplastic process. He is hypoalbuminemic and quite thin. If he does require surgical intervention. I think he may well require significant intensive care support to include possible postoperative ventilatory care. With that in mind, I think he should be transferred to a larger facility. He was scheduled to see Dr. Parekh in [place] next week and I would recommend that he be transferred there today.
[2016-12-13 12:33] VITALS: BP 139/88
--- NOTE | 2016-12-13 13:12 | CR ---
EXAM DATE: 12/12/16 PATIENT'S AGE: 71 Patient: JOSIANE BOWMAN Facility: [place], [place] Site . Site : 1945 Study: XRay Abdomen [id number]/13/[id number] 2:52:06 PM Ordering Physician: Doctor Tapia Final Report: Indication: Abdominal bloating. Decreased bowel sounds. Technique: Abdomen 3 view Comparison: CT abdomen pelvis December 01, 2016. Findings/Impression: Bowel: There are mildly distended small bowel loops in the central abdomen and left lower quadrant. This pattern can be seen with an early or partial small bowel obstruction or regional ileus. Colon is normal in caliber. Soft tissues: No sign of free air. No sign of soft tissue mass. No suspicious calcifications. Bones: Unremarkable for age. Dictated by Emiliano Parish MD @ Dec 12 2016 3:08PM (Electronic Signature) Report Signed by Proxy. ART
--- NOTE | 2016-12-13 13:13 | CR ---
EXAM DATE: 12/12/16 PATIENT'S AGE: 71 Patient: JOSIANE BOWMAN Facility: [place], [place] Site . Site : 1945 Study: XRay Chest [id number]/13/2017 2:54:02 PM Ordering Physician: Doctor Tapia Final Report: INDICATION: Shortness of breath. TECHNIQUE: Chest 2 views. COMPARISON: July 05, 2012. FINDINGS: Cardiovascular and mediastinum: Heart size and vasculature are normal in caliber and appearance. Mediastinum is within normal limits. Lungs and pleural spaces: Lungs are clear. No sign of infiltrate or mass. No sign of pleural effusion. No pneumothorax. Bones and soft tissues: No significant findings. IMPRESSION: No acute findings and no significant changes from the prior exam. Dictated by Emiliano Parish MD @ 12/12/2016 3:14:16 PM Dictated by: Emiliano Parish MD @ 12/12/2016 15:14:24 (Electronic Signature) Report Signed by Proxy. ART
== END 2016-12-13 12:15 | DRG 389 ==
LOC: MW.ED 13:53 → MW.MS 17:01
PROVIDERS: ADMIT Internal Medicine; ATTEND Internal Medicine
DX: K56.60 Unspecified intestinal obstruction (principal); C79.51 Secondary malignant neoplasm of bone; E78.00 Pure hypercholesterolemia, unspecified; C61 Malignant neoplasm of prostate; Z85.46 Personal history of malignant neoplasm of prostate; D70.9 Neutropenia, unspecified; E88.09 Other disorders of plasma-protein metabolism, not elsewhere classified; I25.10 Atherosclerotic heart disease of native coronary artery without angina pectoris; E78.5 Hyperlipidemia, unspecified; I10 Essential (primary) hypertension; G47.33 Obstructive sleep apnea (adult) (pediatric); I73.9 Peripheral vascular disease, unspecified; Z95.1 Presence of aortocoronary bypass graft; Z79.899 Other long term (current) drug therapy; Z87.891 Personal history of nicotine dependence
CPT/HCPCS: 36415; 71020; 74020; 80053; 81001; 82150; 83690; 83880; 85025; 96361; 96374; 99285; J2405; J7040; 80048; J2270

== ENCOUNTER 2017-01-24 16:42 | Emergency (ER) | payer MEDICARE, OTHER ==
[2017-01-24] MEDS ORDERED: Sodium Chloride 0.9% 1,000 ML IV ONE (17:03)
[2017-01-24] MEDS ORDERED: Sodium Chloride 0.9% 2.5 ML Syringe FLUSH PRN (17:03)
[2017-01-24] MEDS ORDERED: Sodium Chloride 0.9% 10 ML Syringe FLUSH PRN (17:03)
--- NOTE | 2017-01-24 17:04 | EDM.PDOC ---
ED HPI GENERAL MEDICAL PROBLEM - General Chief Complaint: General Stated Complaint: PT HAS CHEST PAINS Time Seen by Provider: 01/24/17 17:00 Source of Information: Reports: Patient History Limitations: Reports: No Limitations - History of Present Illness INITIAL COMMENTS - FREE TEXT/NARRATIVE: HISTORY AND PHYSICAL: []71-year-old gentleman presents from home health with dehydration History of Present Illness: []Home Health had contacted his physician Dr. Garcia who recommended he come to the emergency room for IV fluids. States there is intermittent occasional pain "flittering" across to his chest from the xiphoid process to the right and down Patient recently had a port placed to the right chest Review of Systems: As per history of present illness and below otherwise all systems reviewed and negative. Past medical history: As per history of present illness and as reviewed below otherwise noncontributory. Surgical history: As per history of present illness and as reviewed below otherwise noncontributory. Social history: No reported history of drug or alcohol abuse. Family history: As per history of present illness and as reviewed below otherwise noncontributory. Physical exam: Alert gentleman who answers questions appropriately when given time somewhat breathy when speaking fatigued HEENT: Atraumatic, normocehpalic, pupils reactive, negative for conjunctival pallor or scleral icterus, mucous membranes dry, throat clear, neck supple, nontender, trachea midline. Lungs: Clear to auscultation, breath sounds equal bilaterally, chest non tender. Heart: S1S2, regular, negative for clicks, rubs, or JVD. Abdomen: Soft, nondistended, nontender. Negative for masses or hepatossplenmegaly. Negative for costovertebral tenderness. Pelvis: Stable nontender. Genitourinary: Deferred. Rectal: Deferred Extremities: Atraumatic, negative for cords or calf pain. Neurovascular unremarkable. Neuro: Awake, alert, oriented. Cranial nerves II through XII unremarkable. Cerebellum unremarkable. Motor and sensory unremarkable throughout. Exam nonfocal. Diagnostics: [EKG CBC CMP troponin] Therapeutics: [IV fluids] Impression: [Dehydration] Plan: [Discharged to home Follow up with your PCP Small sips every 20 minutes while awake] Definitive disposition and diagnosis as appropriate pending reevaluation and review of above. - Related Data Allergies Allergy/AdvReac Type Severity Reaction Status Date / Time No Known Allergies Allergy Verified 01/24/17 16:47 Home Meds: Home Meds Aspirin [[place] Aspirin] 81 mg PO DAILY 10/12/16 [History] Cholecalciferol (Vitamin D3) [Vitamin D3] 1,000 units PO DAILY 10/12/16 [History ] Leuprolide [Lupron Depot 3-Month] 3.75 mg IM ASDIRECTED 10/12/16 [History] Lisinopril 10 mg PO BEDTIME 10/12/16 [History] Loperamide HCl [Imodium A-D] 1 mg PO ASDIRECTED PRN 10/12/16 [History] Multivitamin [Multivitamins] 1 tab PO DAILY 10/12/16 [History] Simvastatin [Zocor] 40 mg PO DAILY 10/12/16 [History] Ondansetron [Zofran] 4 mg IVPUSH Q4H PRN #0 vial 12/13/16 [Rx] Amiodarone [Cordarone] 200 mg PO BID 01/24/17 [History] Furosemide [Lasix] 20 mg PO DAILY 01/24/17 [History] Metoprolol Tartrate 25 mg PO DAILY 01/24/17 [History] Ondansetron [Zofran ODT] 4 mg PO Q8H 01/24/17 [History] Past Medical History HEENT History: Reports: None Cardiovascular History: Reports: CAD, High Cholesterol, Hypertension, PVD Other Cardiovascular History: coronary artherosclerosis Respiratory History: Reports: Sleep Apnea Other Respiratory History: sleep apnea in the past (had uvuloplasty for this) Gastrointestinal History: Reports: Chronic Diarrhea, Colon Polyp, Irritable Bowel Syndrome Genitourinary History: Reports: Renal Calculus Other Genitourinary History: h/o prostate cancer 4 years ago wit radical prostatectomy Musculoskeletal History: Reports: Arthritis, Fracture, Osteoporosis Other Musculoskeletal History: hx fx hand Hematologic History: Reports: Anemia Oncologic (Cancer) History: Reports: Basal Cell Carcinoma, Prostate Dermatologic History: Reports: Other (See Below) Other Dermatologic History: raynauds - Infectious Disease History Infectious Disease History: Reports: Chicken Pox, Shingles - Past Surgical History Head Surgeries/Procedures: Reports: None HEENT Surgical History: Reports: Cataract Surgery, Tonsillectomy, Other (See Below) Other HEENT Surgeries/Procedures: hx cataract surgery and eye surgery for infection, hx of uvuloplasty with tonsillectomy Cardiovascular Surgical History: Reports: Coronary Artery Bypass, Vascular Surgery Respiratory Surgical History: Reports: None GI Surgical History: Reports: Appendectomy, Colonoscopy Male Surgical History: Reports: Prostatectomy Dermatological Surgical History: Reports: Skin Biopsy Social & Family History - Family History Family Medical History: Noncontributory Cardiac: Reports: Other (See Below) Other Cardiac Family History: Father had a pacemaker Oncologic: Reports: Other (See Below) Other Oncologic Family History: Family Hx of CA of unknown type - Tobacco Use Smoking Status *Q: Never Smoker Used Tobacco, but Quit: Yes Month Tobacco Last Used: quit smoking 20 yrs ago Second Hand Smoke Exposure: No - Caffeine Use Caffeine Use: Reports: Coffee - Recreational Drug Use Recreational Drug Use: No ED ROS GENERAL - Review of Systems Review Of Systems: ROS reveals no pertinent complaints other than HPI. ED EXAM, GENERAL - Physical Exam Exam: See Below (see dictation) EKG INTERPRETATION EKG Date: 01/24/17 Rhythm: NSR Comparison: NA - No Prior EKG Course - Vital Signs Last Recorded V/S: Last Vital Signs Temp 35.9 C 01/24/17 16:47 Pulse 66 01/24/17 16:47 Resp 16 01/24/17 16:47 BP 101/60 01/24/17 16:47 Pulse Ox 95 01/24/17 16:47 - Orders/Labs/Meds Orders: Active Orders 24 hr Category Date Time Status EKG Documentation Completion [RC] STAT Care 01/24/17 17:30 Active Sodium Chloride 0.9% [Saline Flush] Med 01/24/17 17:03 Active 10 ml FLUSH ASDIRECTED PRN Sodium Chloride 0.9% [Saline Flush] Med 01/24/17 17:03 Active 2.5 ml FLUSH ASDIRECTED PRN Saline Lock Insert [OM.PC] Stat Oth 01/24/17 17:03 Ordered Medication Orders Sodium Chloride (Saline Flush) 10 ml FLUSH ASDIRECTED PRN PRN Reason: Keep Vein Open Sodium Chloride (Saline Flush) 2.5 ml FLUSH ASDIRECTED PRN PRN Reason: Keep Vein Open Labs: Laboratory Tests 01/24/17 01/24/17 01/24/17 Range/Units 16:46 16:46 17:37 WBC 4.73 (4.0-11.0) K/uL RBC 3.64 L (4.50-5.90) M/uL Hgb 10.5 L (13.0-17.0) g/dL Hct 32.7 L (38.0-50.0) % MCV 89.8 (80.0-98.0) fL MCH 28.8 (27.0-32.0) pg MCHC 32.1 (31.0-37.0) g/dL RDW Std Deviation 55.0 (28.0-62.0) fl RDW Coeff of Rosina 17 H (11.0-15.0) % Plt Count 302 (150-400) K/uL MPV 8.90 (7.40-12.00) fL Neut % (Auto) 84.9 H (48.0-80.0) % Lymph % (Auto) 6.8 L (16.0-40.0) % [place] % (Auto) 6.8 (0.0-15.0) % Eos % (Auto) 1.1 (0.0-7.0) % Baso % (Auto) 0.4 (0.0-1.5) % Neut # (Auto) 4.0 (1.4-5.7) K/uL Lymph # (Auto) 0.3 L (0.6-2.4) K/uL [place] # (Auto) 0.3 (0.0-0.8) K/uL Eos # (Auto) 0.1 (0.0-0.7) K/uL Baso # (Auto) 0.0 (0.0-0.1) K/uL Nucleated RBC % 0.0 /100WBC Nucleated RBCs # 0 K/uL Sodium 137 (136-146) mmol/L Potassium 4.7 (3.5-5.1) mmol/L Chloride 101 (98-110) mmol/L Carbon Dioxide 26 (21-31) mmol/L BUN 30 H (6.0-23.0) mg/dL Creatinine 1.4 (0.6-1.5) mg/dL Est Cr Clr Drug Dosing 36.97 mL/min Estimated GFR (MDRD) 49.8 ml/min Glucose 90 (60-110) mg/dL Calcium 9.5 (8.8-10.8) mg/dL Total Bilirubin 0.3 (0.1-1.5) mg/dL AST 22 (5-40) IU/L ALT 14 (8-54) IU/L Alkaline Phosphatase 81 (40-150) Troponin I < 0.10 (0.0-0.29) NG/ML Total Protein 7.0 (6.0-8.0) g/dL Albumin 3.6 (3.4-4.8) g/dL Globulin 3.4 (2.0-3.5) g/dL Albumin/Globulin Ratio 1.1 L (1.3-2.8) Meds: Medications Generic Name Dose Route Start Last Admin Trade Name Freq PRN Reason Stop Dose Admin Sodium Chloride 10 ml 01/24/17 17:03 Saline Flush FLUSH ASDIRECTED PRN Keep Vein Open Sodium Chloride 2.5 ml 01/24/17 17:03 Saline Flush FLUSH ASDIRECTED PRN Keep Vein Open Discontinued Medications Generic Name Dose Route Start Last Admin Trade Name Freq PRN Reason Stop Dose Admin Sodium Chloride 1,000 mls @ 999 mls/hr 01/24/17 17:03 01/24/17 17:17 Normal Saline IV 01/24/17 18:03 999 mls/hr STAT ONE Administration Departure - Departure Time of Disposition: 18:11 Disposition: Home, Self-Care 01 Condition: Good Clinical Impression: Dehydration - Discharge Information Referrals: PCP,None [Primary Care Provider] - Forms: ED Department Discharge Additional Instructions: The following information is given to patients seen in the emergency department who are being discharged to home. This information is to outline your options for follow-up care. We provide all patients seen in our emergency department with a follow-up referral. The need for follow-up, as well as the timing and circumstances, are variable depending upon the specifics of your emergency department visit. If you don't have a primary care physician on staff, we will provide you with a referral. We always advise you to contact your personal physician following an emergency department visit to inform them of the circumstance of the visit and for follow-up with them and/or the need for any referrals to a consulting specialist. The emergency department will also refer you to a specialist when appropriate. This referral assures that you have the opportunity for followup care with a specialist. All of these measure are taken in an effort to provide you with optimal care, which includes your followup. Under all circumstances we always encourage you to contact your private physician who remains a resource for coordinating your care. When calling for followup care, please make the office aware that this follow-up is from your recent emergency room visit. If for any reason you are refused follow-up, please contact the [facility] emergency department at and asked to speak to the emergency department charge nurse. Your kidney function was slightly elevated likely is this is related to your dehydration Follow-up with your primary care provider in 2 days - My Orders Last 24 Hours: My Active Orders 01/24/17 17:03 Sodium Chloride 0.9% [Saline Flush] 10 ml FLUSH ASDIRECTED PRN Sodium Chloride 0.9% [Saline Flush] 2.5 ml FLUSH ASDIRECTED PRN Saline Lock Insert [OM.PC] Stat 01/24/17 17:30 EKG Documentation Completion [RC] STAT - Assessment/Plan Last 24 Hours: My Active Orders 01/24/17 17:03 Sodium Chloride 0.9% [Saline Flush] 10 ml FLUSH ASDIRECTED PRN Sodium Chloride 0.9% [Saline Flush] 2.5 ml FLUSH ASDIRECTED PRN Saline Lock Insert [OM.PC] Stat 01/24/17 17:30 EKG Documentation Completion [RC] STAT
[2017-01-24 18:18] VITALS: BP 111/63
== END 2017-01-24 18:24 | disposition home or self-care (01) ==
LOC: MW.ED 16:42
DX: E86.0 Dehydration (principal); E78.00 Pure hypercholesterolemia, unspecified; I10 Essential (primary) hypertension; Z87.442 Personal history of urinary calculi; Z79.899 Other long term (current) drug therapy; Z86.2 Personal history of diseases of the blood and blood-forming organs and certain disorders involving the immune mechanism
CPT/HCPCS: 36415; 80053; 84484; 85025; 93005; 96360; 99283; J7040

== ENCOUNTER 2017-06-07 12:02 | Observation (INO) | payer OTHER, MEDICARE ==
[2017-06-07] MEDS ORDERED: Ondansetron 4 MG/2 ML SDV IVPUSH ONE (12:17)
--- NOTE | 2017-06-07 13:02 | EDM.PDOC ---
ED HPI GENERAL MEDICAL PROBLEM - General Chief Complaint: Fever Stated Complaint: FEVER,NAUSEA Time Seen by Provider: 06/07/17 12:20 Source of Information: Reports: Patient History Limitations: Reports: No Limitations - History of Present Illness INITIAL COMMENTS - FREE TEXT/NARRATIVE: History of present illness: []Patient was sent over from the cancer center after receiving 1 L of normal saline and magnesium for evaluation of fever and vomiting. Patient has a history of prostate cancer with metastases and recent small bowel cancer treated with resection and is currently on chemotherapy. Patient denies any body aches, constipation, abdominal pain, cough or congestion. Review of systems: As per history of present illness and below otherwise all systems reviewed and negative. Past medical history: As per history of present illness and as reviewed below otherwise noncontributory. Surgical history: As per history of present illness and as reviewed below otherwise noncontributory. Social history: No reported history of drug or alcohol abuse. Family history: As per history of present illness and as reviewed below otherwise noncontributory. Physical exam: General: Well developed, well nourished in NAD HEENT: Atraumatic, normocephalic, pupils reactive, negative for conjunctival pallor or scleral icterus, mucous membranes moist, throat clear, neck supple, nontender, trachea midline. Lungs: Clear to auscultation, breath sounds equal bilaterally, chest nontender. Heart: S1S2, regular, negative for clicks, rubs, or JVD. Abdomen: Soft, nondistended, nontender. Negative for masses or hepatosplenomegaly. Negative for costovertebral tenderness. Pelvis: Stable nontender. Genitourinary: Deferred. Rectal: Deferred. Extremities: Atraumatic, negative for cords or calf pain. Neurovascular unremarkable. Neuro: Awake, alert, oriented. Cranial nerves II through XII unremarkable. Cerebellum unremarkable. Motor and sensory unremarkable throughout. Exam nonfocal. Diagnostics: []Blood cultures, labs, x-rays ordered elevated white count is present with a shift otherwise everything else is negative Therapeutics: []Zofran given for nausea no emesis while in the ED Impression: []Fever in a patient currently on chemotherapy Plan: []Admit for IV antibiotics until cultures resulted. Definitive disposition and diagnosis as appropriate pending reevaluation and review of above. - Related Data Allergies Allergy/AdvReac Type Severity Reaction Status Date / Time No Known Allergies Allergy Verified 06/07/17 12:11 Home Meds: Home Meds Aspirin [[place] Aspirin] 81 mg PO DAILY 10/12/16 [History] Cholecalciferol (Vitamin D3) [Vitamin D3] 1,000 units PO DAILY 10/12/16 [History ] Leuprolide [Lupron Depot 3-Month] 3.75 mg IM ASDIRECTED 10/12/16 [History] Lisinopril 10 mg PO BEDTIME 10/12/16 [History] Loperamide HCl [Imodium A-D] 1 mg PO ASDIRECTED PRN 10/12/16 [History] Multivitamin [Multivitamins] 1 tab PO DAILY 10/12/16 [History] Simvastatin [Zocor] 40 mg PO DAILY 10/12/16 [History] Ondansetron [Zofran] 4 mg IVPUSH Q4H PRN #0 vial 12/13/16 [Rx] Amiodarone [Cordarone] 200 mg PO BID 01/24/17 [History] Furosemide [Lasix] 20 mg PO DAILY 01/24/17 [History] Metoprolol Tartrate 25 mg PO DAILY 01/24/17 [History] Ondansetron [Zofran ODT] 4 mg PO Q8H 01/24/17 [History] Past Medical History HEENT History: Reports: None Cardiovascular History: Reports: CAD, High Cholesterol, Hypertension, PVD Other Cardiovascular History: coronary artherosclerosis Respiratory History: Reports: Sleep Apnea Other Respiratory History: sleep apnea in the past (had uvuloplasty for this) Gastrointestinal History: Reports: Chronic Diarrhea, Colon Polyp, Irritable Bowel Syndrome Genitourinary History: Reports: Renal Calculus Other Genitourinary History: h/o prostate cancer 4 years ago wit radical prostatectomy Musculoskeletal History: Reports: Arthritis, Fracture, Osteoporosis Other Musculoskeletal History: hx fx hand Hematologic History: Reports: Anemia Oncologic (Cancer) History: Reports: Basal Cell Carcinoma, Colon, Prostate Dermatologic History: Reports: Other (See Below) Other Dermatologic History: raynauds - Infectious Disease History Infectious Disease History: Reports: Chicken Pox, Measles, Mumps, Shingles - Past Surgical History Head Surgeries/Procedures: Reports: None HEENT Surgical History: Reports: Cataract Surgery, Tonsillectomy, Other (See Below) Other HEENT Surgeries/Procedures: hx cataract surgery and eye surgery for infection, hx of uvuloplasty with tonsillectomy Cardiovascular Surgical History: Reports: Coronary Artery Bypass, Vascular Surgery Respiratory Surgical History: Reports: None GI Surgical History: Reports: Appendectomy, Colonoscopy Male Surgical History: Reports: Prostatectomy Dermatological Surgical History: Reports: Skin Biopsy Social & Family History - Family History Family Medical History: Noncontributory Cardiac: Reports: Other (See Below) Other Cardiac Family History: Father had a pacemaker Oncologic: Reports: Other (See Below) Other Oncologic Family History: Family Hx of CA of unknown type - Tobacco Use Smoking Status *Q: Former Smoker Used Tobacco, but Quit: Yes Month Tobacco Last Used: 35 years ago Second Hand Smoke Exposure: No - Caffeine Use Caffeine Use: Reports: Coffee - Recreational Drug Use Recreational Drug Use: No ED ROS GENERAL - Review of Systems Review Of Systems: See Below (See history of present illness) ED EXAM, GI/ABD - Physical Exam Exam: See Below (See history of present illness) Course - Vital Signs Last Recorded V/S: Last Vital Signs Temp 98.9 F 06/07/17 13:43 Pulse 83 06/07/17 13:43 Resp 18 06/07/17 13:43 BP 141/69 H 06/07/17 13:43 Pulse Ox 97 06/07/17 13:43 - Orders/Labs/Meds Orders: Active Orders 24 hr Category Date Time Status CULTURE BLOOD [BC] Stat Lab 06/07/17 12:28 Received CULTURE BLOOD [BC] Stat Lab 06/07/17 12:38 Received CULTURE URINE [RM] Stat Lab 06/07/17 13:32 Received Levofloxacin/Dextrose 5%-Water [Levaquin in D5W 750 MG/ Med 06/07/17 13:45 Active 150 ML] 750 mg Premix Bag 1 bag IV ONETIME Blood Culture x2 Reflex Set [OM.PC] Stat Oth 06/07/17 12:19 Ordered Medication Orders Levofloxacin/Dextrose 750 mg/ (Premix) 150 mls @ 100 mls/hr IV ONETIME ONE Stop: 06/07/17 15:14 Last Admin: 06/07/17 13:53 Dose: 100 mls/hr Labs: Laboratory Tests 06/07/17 06/07/17 06/07/17 Range/Units 12:28 12:28 13:32 WBC 18.53 H (4.0-11.0) K/uL RBC 3.84 L (4.50-5.90) M/uL Hgb 9.6 L (13.0-17.0) g/dL Hct 31.4 L (38.0-50.0) % MCV 81.8 (80.0-98.0) fL MCH 25.0 L (27.0-32.0) pg MCHC 30.6 L (31.0-37.0) g/dL RDW Std Deviation 51.6 (28.0-62.0) fl RDW Coeff of Rosina 17 H (11.0-15.0) % Plt Count 213 (150-400) K/uL MPV 9.40 (7.40-12.00) fL Neut % (Auto) 91.4 H (48.0-80.0) % Lymph % (Auto) 2.0 L (16.0-40.0) % [place] % (Auto) 6.4 (0.0-15.0) % Eos % (Auto) 0.1 (0.0-7.0) % Baso % (Auto) 0.1 (0.0-1.5) % Neut # (Auto) 16.9 H (1.4-5.7) K/uL Lymph # (Auto) 0.4 L (0.6-2.4) K/uL [place] # (Auto) 1.2 H (0.0-0.8) K/uL Eos # (Auto) 0.0 (0.0-0.7) K/uL Baso # (Auto) 0.0 (0.0-0.1) K/uL Nucleated RBC % 0.0 /100WBC Nucleated RBCs # 0 K/uL Sodium 138 (136-146) mmol/L Potassium 4.0 (3.5-5.1) mmol/L Chloride 108 (98-110) mmol/L Carbon Dioxide 23 (21-31) mmol/L BUN 10 (6.0-23.0) mg/dL Creatinine 0.6 (0.6-1.5) mg/dL Est Cr Clr Drug Dosing 89.72 mL/min Estimated GFR (MDRD) > 60.0 ml/min Glucose 98 (60-110) mg/dL Calcium 8.0 L (8.8-10.8) mg/dL Phosphorus 2.9 (2.4-4.7) mg/dL Magnesium 0.9 L (1.5-2.3) mEq/L Total Bilirubin 0.2 (0.1-1.5) mg/dL AST 18 (5-40) IU/L ALT 11 (8-54) IU/L Alkaline Phosphatase 147 (40-150) Total Protein 5.7 L (6.0-8.0) g/dL Albumin 3.4 (3.4-4.8) g/dL Globulin 2.3 (2.0-3.5) g/dL Albumin/Globulin Ratio 1.5 (1.3-2.8) Urine Color YELLOW Urine Appearance CLEAR Urine pH 5.5 (5.0-8.0) Ur Specific [place] >= 1.030 (1.001-1.035) Urine Protein NEGATIVE (NEGATIVE) mg/dL Urine Glucose (UA) NEGATIVE (NEGATIVE) mg/dL Urine Ketones NEGATIVE (NEGATIVE) mg/dL Urine Occult Blood NEGATIVE (NEGATIVE) Urine Nitrite NEGATIVE (NEGATIVE) Urine Bilirubin NEGATIVE (NEGATIVE) Urine Urobilinogen 0.2 (<2.0) EU/dL Ur Leukocyte Esterase NEGATIVE (NEGATIVE) Urine RBC 0-1 (0-2/HPF) Urine WBC 0-1 (0-5/HPF) Ur Epithelial Cells RARE (NONE-FEW) Urine Bacteria RARE (NEGATIVE) Urine Mucus LIGHT (NONE-MOD) Meds: Medications Generic Name Dose Route Start Last Admin Trade Name Freq PRN Reason Stop Dose Admin Levofloxacin/Dextrose 750 mg/ 150 mls @ 100 mls/hr 06/07/17 13:45 06/07/17 13 :53 Premix IV 06/07/17 15:14 100 mls/hr ONETIME ONE Administration Discontinued Medications Generic Name Dose Route Start Last Admin Trade Name Freq PRN Reason Stop Dose Admin Ondansetron HCl 4 mg 06/07/17 12:17 06/07/17 12:32 Zofran IVPUSH 06/07/17 12:18 4 mg ONETIME ONE Administration Departure - Departure Time of Disposition: 14:32 Disposition: Refer to Observation Condition: Good Clinical Impression: Fever Qualifiers: Fever type: unspecified Qualified Code(s): R50.9 - Fever, unspecified - Discharge Information - My Orders Last 24 Hours: My Active Orders 06/07/17 12:19 Blood Culture x2 Reflex Set [OM.PC] Stat 06/07/17 12:28 CULTURE BLOOD [BC] Stat 06/07/17 12:38 CULTURE BLOOD [BC] Stat 06/07/17 13:32 CULTURE URINE [RM] Stat 06/07/17 13:45 Levofloxacin/Dextrose 5%-Water [Levaquin in D5W 750 MG/150 ML] 750 mg Premix Bag 1 bag IV ONETIME - Assessment/Plan Last 24 Hours: My Active Orders 06/07/17 12:19 Blood Culture x2 Reflex Set [OM.PC] Stat 06/07/17 12:28 CULTURE BLOOD [BC] Stat 06/07/17 12:38 CULTURE BLOOD [BC] Stat 06/07/17 13:32 CULTURE URINE [RM] Stat 06/07/17 13:45 Levofloxacin/Dextrose 5%-Water [Levaquin in D5W 750 MG/150 ML] 750 mg Premix Bag 1 bag IV ONETIME
--- NOTE | 2017-06-07 13:19 | CR ---
EXAMINATION: Abdomen HISTORY: Vomiting COMPARISON: None TECHNIQUE: Upright views of the abdomen FINDINGS: No free air under the diaphragm. No organomegaly. Small pockets of gas noted predominantly within the colon. Median sternotomy wires are noted. No abnormal calcifications project over the kidn eys. Mild S-shaped curvature of the thoracolumbar spine. Clips noted within the pelvis. IMPRESSION: 1. Nonspecific bowel gas pattern without definite evidence of obstruction.
[2017-06-07 13:25] LABS: CHLORIDE,CL 108 mmol/L (98-110); SODIUM,NA 138 mmol/L (136-146)
--- NOTE | 2017-06-07 13:35 | CR ---
EXAMINATION: Two-view chest (PA and Lateral views). HISTORY: Shortness of breath. Comparison: 12/12/2016, 07/05/2016 FINDINGS: The trachea is midline. The cardiomediastinal silhouette is within normal limits. No pulmonary infilt rates, effusions or pneumothorax. Mild interstitial prominence and hyperinflation. Right-sided Infuse -a-Port is noted. Median sternotomy wires are present. Osseous structures appear unremarkable. IMPRESSION: No acute cardiopulmonary process.
[2017-06-07] MEDS ORDERED: Levofloxacin/Dextrose 5%-Water 750 MG in Premix Bag 1 BAG IV ONE (13:45)
[2017-06-07] MEDS ORDERED: Sodium Chloride 0.9% 10 ML Syringe FLUSH PRN (15:10)
[2017-06-07] MEDS ORDERED: Acetaminophen 325 MG Tab PO PRN (15:10)
--- NOTE | 2017-06-07 15:14 | PCM.HP ---
H&P History of Present Illness - General Date of Service: 06/07/17 Admit Problem/Dx: Admission Diagnosis/Problem Admission Diagnosis/Problem Fever Source of Information: Patient, Family, Old Records History Limitations: Reports: No Limitations - History of Present Illness Initial Comments - Free Text/Narative: This 71 year old male with pmh of current metastatic cecal carcinoma currently receiving chemotherapy in [place], metastatic prostate cancer, CAD, dyslipidemia, HTN, and PABLO presented to Oncology here today with concerns of dehydration and fevers and chills at home. Fever in Oncology was noted to be 100.[address] Valdes who recommended he be evaluated in the ED. He reports having a little post nasal drip, scant sore throat, no sinus congestion, headache or ear pain. He denies cough or chest pain. Fever/chills started at home this morning. He denies abdominal pain or urinary symptoms. he did have diarrhea following chemotherapy, which was one week ago. He reports he takes Prednisone 5 mg po daily and was given Neulasta injection on Tuesday. he reports having neuropathy pain to bilateral hands with cracking to finger tips and to his ankles which is periodically. He denies black or bloody BMs and no emesis. His appetite is poor, but he has been able to drink plenty of fluids at home. In the ED lekocytosis noted, 18,530, Hgb 9.6 Plat 213. BMP was WNL. influenza negative. UA negative. BC and UC pending. CXR negative for infiltrates and abdomen xray negative as well. Levaquin 750 mg IV started in ED. Port to R chest. - Related Data Allergies/Adverse Reactions: Allergies Allergy/AdvReac Type Severity Reaction Status Date / Time No Known Allergies Allergy Verified 06/07/17 12:11 Home Medications: Home Meds Aspirin [[place] Aspirin] 81 mg PO DAILY 10/12/16 [History] Cholecalciferol (Vitamin D3) [Vitamin D3] 1,000 units PO DAILY 10/12/16 [History ] Leuprolide [Lupron Depot 3-Month] 3.75 mg IM ASDIRECTED 10/12/16 [History] Lisinopril 10 mg PO BEDTIME 10/12/16 [History] Loperamide HCl [Imodium A-D] 2 mg PO ASDIRECTED PRN 10/12/16 [History] Multivitamin [Multivitamins] 1 tab PO DAILY 10/12/16 [History] Simvastatin [Zocor] 20 mg PO BEDTIME 10/12/16 [History] Amiodarone [Cordarone] 400 mg PO Q12H 01/24/17 [History] Furosemide [Lasix] 20 mg PO DAILY 01/24/17 [History] Ondansetron [Zofran ODT] 4 mg PO Q8H PRN 01/24/17 [History] Gabapentin [Neurontin] 300 mg PO BEDTIME 06/07/17 [History] Metoprolol Tartrate 25 mg PO DAILY 06/07/17 [History] Mirtazapine [Remeron] 30 mg PO BEDTIME 06/07/17 [History] Omeprazole 40 mg PO ACBREAKFAST 06/07/17 [History] predniSONE 5 mg PO DAILY 06/07/17 [History] Past Medical History HEENT History: Reports: None Cardiovascular History: Reports: CAD, High Cholesterol, Hypertension, PVD. 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) Psychiatric History: Reports: None Endocrine/Metabolic History: Denies: Diabetes, Type II, Hypothyroidism Hematologic History: Reports: Anemia Oncologic (Cancer) History: Reports: Basal Cell Carcinoma, Colon (metastatic cecal carcinoma), Prostate Dermatologic History: Reports: Other (See Below) Other Dermatologic History: raynauds - Infectious Disease History Infectious Disease History: Reports: Chicken Pox, Measles, Mumps, Shingles - Past Surgical History Head Surgeries/Procedures: Reports: None HEENT Surgical History: Reports: Cataract Surgery, Tonsillectomy, Other (See Below) Other HEENT Surgeries/Procedures: hx cataract surgery and eye surgery for infection, hx of uvuloplasty with tonsillectomy Cardiovascular Surgical History: Reports: Coronary Artery Bypass, Vascular Surgery Respiratory Surgical History: Reports: None GI Surgical History: Reports: Appendectomy, Colonoscopy Male Surgical History: Reports: Prostatectomy Dermatological Surgical History: Reports: Skin Biopsy Social & Family History - Family History Family Medical History: Noncontributory Cardiac: Reports: Other (See Below) Other Cardiac Family History: Father had a pacemaker Oncologic: Reports: Other (See Below) Other Oncologic Family History: Family Hx of CA of unknown type - Tobacco Use Smoking Status *Q: Former Smoker Used Tobacco, but Quit: Yes Month Tobacco Last Used: 35 years ago Second Hand Smoke Exposure: No - Caffeine Use Caffeine Use: Reports: Coffee - Recreational Drug Use Recreational Drug Use: No - Living Situation & Occupation Living situation: Reports: H&P Review of Systems - Review of Systems: Review Of Systems: See Below General: Reports: Fever, Chills, Malaise, Fatigue, Decreased Appetite HEENT: Reports: Headaches (when temp is elevated), Post Nasal Drip, Sore Throat (scant). Denies: Hearing Changes, Visual Changes Pulmonary: Reports: No Symptoms. Denies: Shortness of Breath, Pleuritic Chest Pain, Cough, Sputum, Hemoptysis Cardiovascular: Reports: No Symptoms. Denies: Chest Pain, Edema, Lightheadedness Gastrointestinal: Reports: Diarrhea (since chemotherapy, but has slowed down now which is the normal process after his chemotherapy). Denies: Abdominal Pain , Black Stool, Bloody Stool Genitourinary: Reports: No Symptoms. Denies: Dysuria, Frequency, Burning, Retention, Flank Pain Musculoskeletal: Reports: Leg Pain (neuropathy to ankles and bilateral hands/ fingers) Skin: Reports: No Symptoms. Denies: Erythema, Wound, Urticaria Psychiatric: Reports: No Symptoms Neurological: Reports: No Symptoms. Denies: Confusion Hematologic/Lymphatic: Reports: No Symptoms Immunologic: Reports: No Symptoms Exam - Exam Exam: See Below - Vital Signs Vital Signs: Last Vital Signs Temp 98.9 F 06/07/17 14:30 Pulse 86 06/07/17 14:30 Resp 19 06/07/17 14:30 BP 121/63 06/07/17 14:30 Pulse Ox 96 06/07/17 14:30 Weight: 56.274 kg - Exam General: Alert, Oriented, Cooperative HEENT: Conjunctiva Clear, Mucosa Moist & [place], TMs Clear. No: Posterior Pharynx Clear (scant erythema with minute pustule noted to R throat.) Neck: Supple, Trachea Midline, Full Range of Motion. No: Lymphadenopathy Lungs: Clear to Auscultation, Normal Respiratory Effort Cardiovascular: Regular Rate, Regular Rhythm GI/Abdominal Exam: Normal Bowel Sounds, Soft, Non-Tender, No Organomegaly, No Distention, No Abnormal Bruit, No Mass, Pelvis Stable Extremities: Normal Inspection, Normal Range of Motion, Non-Tender, No Pedal Edema, Normal Capillary Refill Skin: Warm, Dry, Intact Neuro Extensive - Mental Status: Alert, Oriented x3, Normal Mood/Affect, Normal Cognition Neuro Extensive - Motor, Sensory, Reflexes: CN II-XII Intact, Normal Gait, Normal Reflexes Psychiatric: Alert, Normal Affect, Normal Mood - Patient Data Result Diagrams: 06/07/17 12:28 06/07/17 12:28 *Q Meaningful Use (ADM) - VTE *Q VTE Criteria *Q: - Stroke *Q Stroke Criteria *Q: - AMI *Q AMI Criteria *Q: - Problem List (1) Fever SNOMED Code(s): 554024571 ICD Code: R50.9 - FEVER, UNSPECIFIED Status: Acute Current Visit: Yes Qualifiers: Fever type: unspecified Qualified Code(s): R50.9 - Fever, unspecified (2) Dehydration SNOMED Code(s): 16026385 ICD Code: E86.0 - DEHYDRATION Status: Acute Current Visit: No (3) Cecal cancer Status: Chronic Current Visit: Yes Problem Details: metastatic cecal carcinoma (4) CAD (coronary artery disease) SNOMED Code(s): 36140401 ICD Code: I25.10 - ATHSCL HEART DISEASE OF [place] CORONARY ARTERY W/O ANG PCTRS Status: Chronic Current Visit: No Qualifiers: Coronary Disease-Associated Artery/Lesion type: [place] artery [place] vs. transplanted heart: [place] heart Associated angina: without angina Qualified Code(s): I25.10 - Atherosclerotic heart disease of [place] coronary artery without angina pectoris (5) Dyslipidemia SNOMED Code(s): 463882266 ICD Code: E78.5 - HYPERLIPIDEMIA, UNSPECIFIED Status: Chronic Priority: Low Current Visit: No (6) HTN (hypertension) SNOMED Code(s): 13338198 ICD Code: I10 - ESSENTIAL (PRIMARY) HYPERTENSION Status: Chronic Current Visit: No Qualifiers: Hypertension type: essential hypertension Qualified Code(s): I10 - Essential (primary) hypertension (7) PVD (peripheral vascular disease) SNOMED Code(s): 280721286 ICD Code: I73.9 - PERIPHERAL VASCULAR DISEASE, UNSPECIFIED Status: Chronic Current Visit: No (8) Prostate cancer metastatic to bone SNOMED Code(s): 22627777 ICD Code: C61 - MALIGNANT NEOPLASM OF PROSTATE; C79.51 - SECONDARY MALIGNANT NEOPLASM OF BONE Status: Chronic Current Visit: No Problem List Initiated/Reviewed/Updated: Yes Orders Last 24hrs: Active Orders 24 hr Category Date Time Status Intake and Output [RC] QSHIFT Care 06/07/17 15:11 Ordered Oxygen Therapy [RC] PRN Care 06/07/17 15:10 Ordered Up ad Edwina [RC] ASDIRECTED Care 06/07/17 15:10 Ordered VTE/DVT Education [RC] PER UNIT ROUTINE Care 06/07/17 15:10 Ordered Vital Signs [RC] Q4H Care 06/07/17 15:10 Ordered Regular Diet [DIET] Diet 06/07/17 Dinner Ordered BASIC METABOLIC PANEL,BMP [CHEM] AM Lab 06/08/17 05:11 Ordered CBC WITH AUTO DIFF [HEME] AM Lab 06/08/17 05:11 Ordered CULTURE SPUTUM + SMEAR [RM] Stat Lab 06/07/17 15:10 Uncollected STREP SCRN A RAPID W CULT CONF [RM] Urgent Lab 06/07/17 14:58 Uncollected Acetaminophen [Tylenol] Med 06/07/17 15:10 Ordered 650 mg PO Q4H PRN Enoxaparin [Lovenox] Med 06/07/17 15:15 Ordered 30 mg SUBCUT DAILY Ondansetron [Zofran] Med 06/07/17 15:10 Ordered 4 mg IVPUSH Q4H PRN Sodium Chloride 0.9% [Normal Saline] 1,000 ml Med 06/07/17 15:15 Ordered IV ASDIRECTED Sodium Chloride 0.9% [Saline Flush] Med 06/07/17 15:10 Ordered 10 ml FLUSH ASDIRECTED PRN Saline Lock Insert [OM.PC] Routine Oth 06/07/17 15:10 Ordered Resuscitation Status Routine Resus Stat 06/07/17 15:10 Ordered Assessment/Plan Comment:: This 71 year old male admitted with fever, dehydration and leukocytosis 1. Fever: BC UC pending. No source of infection noted or clear at this time. Rapid strep negative and throat culture pending. Continue Levaquin 750 mg daily. Monitor 2. Dehydration: Will continue NS 100 overnight and monitor. 3. Leukocytosis: Does take Prednisone daily along with being given Neulasta on Tuesday. May be due to this. Continue to monitor cultures and fevers. 4. Metastatic Cecal carcinoma: received chemotherapy 1 week ago in [place]. Being treated with FOLFOX with antibody with reduced dose of oxaliplatin. Follows with Dr Valdes in [place]. 5. HTN: stable, not currently taking medications for. Will monitor. 6. CAD: Continue Simvastatin. VTE prophylaxis: Lovenox Dispo: 1-2 days pending.
[2017-06-07] MEDS: Sodium Chloride 0.9% 1,000 ML IV SCH (15:39)
[2017-06-07] MEDS: Enoxaparin 40 MG/0.4 ML Syringe SUBCUT SCH (19:00)
[2017-06-07] MEDS: Ondansetron 4 MG/2 ML SDV IVPUSH PRN (19:27)
[2017-06-07] MEDS: Simvastatin 40 MG Tab PO SCH (21:07)
[2017-06-07] MEDS: Gabapentin 300 MG Cap PO SCH (21:08)
[2017-06-07] MEDS: Mirtazapine 15 MG Tab PO SCH (21:08)
[2017-06-08] MEDS: Sodium Chloride 0.9% 1,000 ML IV SCH ×3 (01:44→23:59)
[2017-06-08 06:35] LABS: CHLORIDE,CL 111 mmol/L (98-110); SODIUM,NA 140 mmol/L (136-146)
[2017-06-08] MEDS: Omeprazole 20 MG Cap.CR PO SCH (07:14)
[2017-06-08] MEDS: Multivitamins with Iron/Calcium/Folic Acid/Minerals Tab PO SCH (08:36)
[2017-06-08] MEDS: predniSONE 5 MG Tab PO SCH (08:36)
[2017-06-08] MEDS: Ondansetron 4 MG/2 ML SDV IVPUSH PRN ×2 (09:21→21:50)
--- NOTE | 2017-06-08 09:38 | PCM.PN ---
- General Info Date of Service: 06/08/17 Admission Dx/Problem (Free Text): Admission Diagnosis/Problem Admission Diagnosis/Problem Fever Subjective Update: Feeling a little ill this morning, "sour stomach". Denies chest pain SOB or any fevers. Functional Status: Reports: Pain Controlled - Review of Systems General: Reports: Malaise. Denies: Fever HEENT: Reports: No Symptoms Pulmonary: Reports: No Symptoms. Denies: Shortness of Breath Cardiovascular: Reports: No Symptoms. Denies: Chest Pain Gastrointestinal: Reports: Nausea. Denies: Vomiting Genitourinary: Reports: No Symptoms. Denies: Dysuria, Frequency, Burning Musculoskeletal: Reports: No Symptoms. Denies: Neck Pain Neurological: Reports: No Symptoms Psychiatric: Reports: No Symptoms - Patient Data Vitals - Most Recent: Last Vital Signs Temp 97.9 F 06/08/17 07:59 Pulse 85 06/08/17 07:59 Resp 16 06/08/17 07:59 BP 103/67 06/08/17 07:59 Pulse Ox 96 06/08/17 07:59 Weight - Most Recent: 56.274 kg I&O - Last 24 Hours: Intake & Output 06/07/17 06/08/17 06/08/17 22:59 06:59 14:59 Intake Total 250 570 Output Total 0 500 Balance 250 70 Lab Results Last 24 Hours: Laboratory Results - last 24 hr 06/08/17 06/08/17 Range/Units 05:37 05:37 WBC 12.12 H (4.0-11.0) K/uL RBC 3.44 L (4.50-5.90) M/uL Hgb 8.8 L (13.0-17.0) g/dL Hct 28.2 L (38.0-50.0) % MCV 82.0 (80.0-98.0) fL MCH 25.6 L (27.0-32.0) pg MCHC 31.2 (31.0-37.0) g/dL RDW Std Deviation 52.6 (28.0-62.0) fl RDW Coeff of Rosina 18 H (11.0-15.0) % Plt Count 189 (150-400) K/uL MPV 9.60 (7.40-12.00) fL Neut % (Auto) 86.0 H (48.0-80.0) % Lymph % (Auto) 1.7 L (16.0-40.0) % Irwin % (Auto) 11.9 (0.0-15.0) % Eos % (Auto) 0.2 (0.0-7.0) % Baso % (Auto) 0.2 (0.0-1.5) % Neut # (Auto) 10.4 H (1.4-5.7) K/uL Lymph # (Auto) 0.2 L (0.6-2.4) K/uL [place]win # (Auto) 1.4 H (0.0-0.8) K/uL Eos # (Auto) 0.0 (0.0-0.7) K/uL Baso # (Auto) 0.0 (0.0-0.1) K/uL Nucleated RBC % 0.0 /100WBC Nucleated RBCs # 0 K/uL Sodium 140 (136-146) mmol/L Potassium 3.8 (3.5-5.1) mmol/L Chloride 111 H (98-110) mmol/L Carbon Dioxide 21 (21-31) mmol/L BUN 8 (6.0-23.0) mg/dL Creatinine 0.6 (0.6-1.5) mg/dL Est Cr Clr Drug Dosing 88.58 mL/min Estimated GFR (MDRD) > 60.0 ml/min Glucose 77 (60-110) mg/dL Calcium 6.9 L (8.8-10.8) mg/dL Jamie Results Last 24 Hours: Microbiology 06/07/17 15:18 Group A Streptococcus Rapid Screen - Final Throat NEGATIVE STREP A SCREEN Med Orders - Current: Current Medications Acetaminophen (Tylenol) 650 mg PO Q4H PRN PRN Reason: Pain (mild 1-3) Enoxaparin Sodium (Lovenox) 40 mg SUBCUT Q24H [facility] Last Admin: 06/07/17 19:00 Dose: 40 mg Gabapentin (Neurontin) 300 mg PO BEDTIME [facility] Last Admin: 06/07/17 21:08 Dose: 300 mg Sodium Chloride (Normal Saline) 1,000 mls @ 100 mls/hr IV ASDIRECTED [facility] Last Admin: 06/08/17 01:44 Dose: 100 mls/hr Levofloxacin/Dextrose 750 mg/ (Premix) 150 mls @ 100 mls/hr IV Q24H [facility] Mirtazapine (Remeron) 30 mg PO BEDTIME [facility] Last Admin: 06/07/17 21:08 Dose: 30 mg Multivitamins/Minerals (Thera M Plus) 1 tab PO DAILY [facility] Last Admin: 06/08/17 08:36 Dose: 1 tab Omeprazole (Omeprazole) 40 mg PO ACBREAKFAST [facility] Last Admin: 06/08/17 07:14 Dose: 40 mg Ondansetron HCl (Zofran) 4 mg IVPUSH Q4H PRN PRN Reason: Nausea Last Admin: 06/08/17 09:21 Dose: 4 mg Prednisone (Prednisone) 5 mg PO DAILY [facility] Last Admin: 06/08/17 08:36 Dose: 5 mg Simvastatin (Zocor) 20 mg PO BEDTIME [facility] Last Admin: 06/07/17 21:07 Dose: 20 mg Sodium Chloride (Saline Flush) 10 ml FLUSH ASDIRECTED PRN PRN Reason: Keep Vein Open Discontinued Medications Levofloxacin/Dextrose 750 mg/ (Premix) 150 mls @ 100 mls/hr IV ONETIME ONE Stop: 06/07/17 15:14 Last Admin: 06/07/17 13:53 Dose: 100 mls/hr Ondansetron HCl (Zofran) 4 mg IVPUSH ONETIME ONE Stop: 06/07/17 12:18 Last Admin: 06/07/17 12:32 Dose: 4 mg - Exam Quality Assessment: Central Line/PICC (Port to R chest.) General: Alert, Oriented, Cooperative, No Acute Distress Neck: Supple Lungs: Clear to Auscultation, Normal Respiratory Effort Cardiovascular: Regular Rate, Regular Rhythm GI/Abdominal Exam: Normal Bowel Sounds, Soft, Non-Tender, No Organomegaly, No Distention, No Abnormal Bruit, No Mass, Pelvis Stable Extremities: Normal Inspection, Normal Range of Motion, Non-Tender, No Pedal Edema, Normal Capillary Refill Neurological: No New Focal Deficit Psy/Mental Status: Alert, Normal Affect, Normal Mood - Problem List & Annotations (1) Fever SNOMED Code(s): 108849626 Code(s): R50.9 - FEVER, UNSPECIFIED Status: Acute Current Visit: Yes Qualifiers: Fever type: unspecified Qualified Code(s): R50.9 - Fever, unspecified (2) Dehydration SNOMED Code(s): 30289453 Code(s): E86.0 - DEHYDRATION Status: Acute Current Visit: No (3) Cecal cancer Status: Chronic Current Visit: Yes Annotation/Comment:: metastatic cecal carcinoma (4) CAD (coronary artery disease) SNOMED Code(s): 41980044 Code(s): I25.10 - ATHSCL HEART DISEASE OF [place] CORONARY ARTERY W/O ANG PCTRS Status: Chronic Current Visit: No Qualifiers: Coronary Disease-Associated Artery/Lesion type: [place] artery [place] vs. transplanted heart: [place] heart Associated angina: without angina Qualified Code(s): I25.10 - Atherosclerotic heart disease of [place] coronary artery without angina pectoris (5) Dyslipidemia SNOMED Code(s): 028373287 Code(s): E78.5 - HYPERLIPIDEMIA, UNSPECIFIED Status: Chronic Priority: Low Current Visit: No (6) HTN (hypertension) SNOMED Code(s): 46446770 Code(s): I10 - ESSENTIAL (PRIMARY) HYPERTENSION Status: Chronic Current Visit: No Qualifiers: Hypertension type: essential hypertension Qualified Code(s): I10 - Essential (primary) hypertension (7) PVD (peripheral vascular disease) SNOMED Code(s): 920026094 Code(s): I73.9 - PERIPHERAL VASCULAR DISEASE, UNSPECIFIED Status: Chronic Current Visit: No (8) Prostate cancer metastatic to bone SNOMED Code(s): 55010455 Code(s): C61 - MALIGNANT NEOPLASM OF PROSTATE; C79.51 - SECONDARY MALIGNANT NEOPLASM OF BONE Status: Chronic Current Visit: No - Problem List Review Problem List Initiated/Reviewed/Updated: Yes - My Orders Last 24 Hours: My Active Orders 06/07/17 15:10 Oxygen Therapy [RC] PRN Up ad Edwina [RC] ASDIRECTED VTE/DVT Education [RC] PER UNIT ROUTINE Vital Signs [RC] Q4H CULTURE SPUTUM + SMEAR [RM] Stat Acetaminophen [Tylenol] 650 mg PO Q4H PRN Ondansetron [Zofran] 4 mg IVPUSH Q4H PRN Sodium Chloride 0.9% [Saline Flush] 10 ml FLUSH ASDIRECTED PRN Saline Lock Insert [OM.PC] Routine Resuscitation Status Routine 06/07/17 15:11 Intake and Output [RC] QSHIFT 06/07/17 15:15 Sodium Chloride 0.9% [Normal Saline] 1,000 ml IV ASDIRECTED 06/07/17 15:18 CULTURE STREP A CONFIRMATION [RM] Urgent STREP SCRN A RAPID W CULT CONF [RM] Urgent 06/07/17 18:00 Enoxaparin [Lovenox] 40 mg SUBCUT Q24H 06/07/17 21:00 Gabapentin [Neurontin] 300 mg PO BEDTIME Mirtazapine [Remeron] 30 mg PO BEDTIME Simvastatin [Zocor] 20 mg PO BEDTIME 06/07/17 Dinner Regular Diet [DIET] 06/08/17 07:30 Omeprazole 40 mg PO ACBREAKFAST 06/08/17 09:00 Multivitamins w-Iron/Ca/FA/Min [Thera M Plus] 1 tab PO DAILY predniSONE 5 mg PO DAILY 06/08/17 09:37 Calcium Carbonate [Tums] 1,000 mg PO Q2HR PRN 06/08/17 12:00 Levofloxacin/Dextrose 5%-Water [Levaquin in D5W 750 MG/150 ML] 750 mg Premix Bag 1 bag IV Q24H - Plan Plan:: This 71 year old male admitted with fever, dehydration and leukocytosis 1. Fever: BC neg x 1, UC pending. No source of infection noted or clear at this time. Rapid strep negative negative. Continue Levaquin 750 mg daily. Monitor, max temp 100.6 overnight. 2. Dehydration:BP borderline, not eating much, will continue NS 100 3. Leukocytosis: improved today, 12,000. Does take Prednisone daily along with being given Neulasta on Tuesday. 4. Metastatic Cecal carcinoma: Spoke with Oncologist, Dr Valdes this afternoon, updated him on Justin. He recommended continued Levaquin upon discharge. He will see patient on scheduled Jun 14, but will not give him Chemotherapy. Patient up dated on this. No questions. 5. HTN: stable, not currently taking medications for. Will monitor. 6. CAD: Continue Simvastatin. VTE prophylaxis: Lovenox Dispo: possible DC in am, awaiting all culture results prior to DC'ing home.
[2017-06-08] MEDS: Calcium Carbonate 500 MG Tab.Chew PO PRN ×3 (10:16→20:12)
[2017-06-08] MEDS ORDERED: Levofloxacin/Dextrose 5%-Water 750 MG in Premix Bag 1 BAG IV SCH (12:00)
[2017-06-08] MEDS: Enoxaparin 40 MG/0.4 ML Syringe SUBCUT SCH (17:08)
[2017-06-08] MEDS: Simvastatin 40 MG Tab PO SCH (21:43)
[2017-06-08] MEDS: Gabapentin 300 MG Cap PO SCH (21:44)
[2017-06-08] MEDS: Mirtazapine 15 MG Tab PO SCH (21:44)
[2017-06-09 06:26] LABS: CHLORIDE,CL 109 mmol/L (98-110); SODIUM,NA 138 mmol/L (136-146)
[2017-06-09] MEDS: Omeprazole 20 MG Cap.CR PO SCH (06:29)
[2017-06-09 08:27] VITALS: BP 104/65
[2017-06-09] MEDS: Multivitamins with Iron/Calcium/Folic Acid/Minerals Tab PO SCH (09:10)
[2017-06-09] MEDS: predniSONE 5 MG Tab PO SCH (09:10)
--- NOTE | 2017-06-09 09:38 | PCM.DCSUM1 ---
Discharge Summary - Hospital Course Brief History: This 71 year old male with pmh of current metastatic cecal carcinoma currently receiving chemotherapy in [place], metastatic prostate cancer , CAD, dyslipidemia, HTN, and PABLO presented to Oncology here today with concerns of dehydration and fevers and chills at home. Fever in Oncology was noted to be 100.[address] Valdes who recommended he be evaluated in the ED. He reports having a little post nasal drip, scant sore throat, no sinus congestion, headache or ear pain. He denies cough or chest pain. Fever/chills started at home this morning. He denies abdominal pain or urinary symptoms. he did have diarrhea following chemotherapy, which was one week ago. He reports he takes Prednisone 5 mg po daily and was given Neulasta injection on Tuesday. he reports having neuropathy pain to bilateral hands with cracking to finger tips and to his ankles which is periodically. He denies black or bloody BMs and no emesis. His appetite is poor, but he has been able to drink plenty of fluids at home. In the ED lekocytosis noted, 18,530, Hgb 9.6 Plat 213. BMP was WNL. influenza negative. UA negative. BC and UC pending. CXR negative for infiltrates and abdomen xray negative as well. Levaquin 750 mg IV started in ED. Port to R chest. - Discharge Data Discharge Date: 06/09/17 Discharge Disposition: Home, Self-Care 01 Condition: Good - Discharge Diagnosis/Problem(s) (1) Fever SNOMED Code(s): 882444157 ICD Code: R50.9 - FEVER, UNSPECIFIED Status: Resolved Current Visit: Yes Qualifiers: Fever type: unspecified Qualified Code(s): R50.9 - Fever, unspecified (2) Dehydration SNOMED Code(s): 41738914 ICD Code: E86.0 - DEHYDRATION Status: Acute Current Visit: No (3) Cecal cancer Status: Chronic Current Visit: Yes Problem Details: metastatic cecal carcinoma (4) CAD (coronary artery disease) SNOMED Code(s): 39172145 ICD Code: I25.10 - ATHSCL HEART DISEASE OF [place] CORONARY ARTERY W/O ANG PCTRS Status: Chronic Current Visit: No Qualifiers: Coronary Disease-Associated Artery/Lesion type: [place] artery [place] vs. transplanted heart: [place] heart Associated angina: without angina Qualified Code(s): I25.10 - Atherosclerotic heart disease of [place] coronary artery without angina pectoris (5) Dyslipidemia SNOMED Code(s): 112780554 ICD Code: E78.5 - HYPERLIPIDEMIA, UNSPECIFIED Status: Chronic Priority: Low Current Visit: No (6) HTN (hypertension) SNOMED Code(s): 98852105 ICD Code: I10 - ESSENTIAL (PRIMARY) HYPERTENSION Status: Chronic Current Visit: No Qualifiers: Hypertension type: essential hypertension Qualified Code(s): I10 - Essential (primary) hypertension (7) PVD (peripheral vascular disease) SNOMED Code(s): 894914585 ICD Code: I73.9 - PERIPHERAL VASCULAR DISEASE, UNSPECIFIED Status: Chronic Current Visit: No (8) Prostate cancer metastatic to bone SNOMED Code(s): 31707780 ICD Code: C61 - MALIGNANT NEOPLASM OF PROSTATE; C79.51 - SECONDARY MALIGNANT NEOPLASM OF BONE Status: Chronic Current Visit: No - Patient Instructions Diet: Regular Diet as Tolerated Activity: As Tolerated Showering/Bathing: May Shower Notify Provider of: Fever, Increased Pain, Swelling and Redness, Drainage, Nausea and/or Vomiting - Discharge Plan Prescriptions/Med Rec: Levofloxacin [Levaquin] 750 mg PO DAILY #8 tab Home Medications: Home Meds Aspirin [Greene Aspirin] 81 mg PO DAILY 10/12/16 [History] Cholecalciferol (Vitamin D3) [Vitamin D3] 1,000 units PO DAILY 10/12/16 [History ] Multivitamin [Multivitamins] 1 tab PO DAILY 10/12/16 [History] Simvastatin [Zocor] 20 mg PO BEDTIME 10/12/16 [History] Ondansetron [Zofran ODT] 4 mg PO Q8H PRN 01/24/17 [History] Gabapentin [Neurontin] 300 mg PO BEDTIME 06/07/17 [History] Leuprolide [Lupron Dep[place] 1-Month] 3.75 mg IM ASDIRECTED 06/07/17 [History] Loperamide HCl [Anti-Diarrheal] 1 mg PO ASDIRECTED PRN 06/07/17 [History] Mirtazapine [Remeron] 30 mg PO BEDTIME 06/07/17 [History] Omeprazole 40 mg PO ACBREAKFAST 06/07/17 [History] Polyethylene Glycol 3350 [MiraLAX] 17 gm PO DAILY PRN 06/07/17 [History] predniSONE 5 mg PO DAILY 06/07/17 [History] Levofloxacin [Levaquin] 750 mg PO DAILY #8 tab 06/09/17 [Rx] Patient Handouts: Levofloxacin tablets, Fever, Adult, [id number] Referrals: Brennon Garcia MD [Primary Care Provider] - 06/21/17 2:30 pm - Discharge Summary/Plan Comment DC Time >30 min.: No Discharge Summary/Plan Comment: Discharge Diagnoses: Fever in immunocompromised Metastatic Cecal carcinoma Hx metastatic prostate cancer Justin was admitted with dehydration and fever post chemotherapy treatment 1 week ago. BC and UC obtained which have shown no growth. CXR wsa negative and patient has not had abdominal pain. he is eating fairly and drinking fluids well , but things don't taste well after chemotherapy. I spoke with Dr Valdes yesterday, who is aware of no growth in cultures. We will continue Levaquin 750 mg daily for total of 10 days. He is to see Dr Valdes on Jun 14 if he is up to traveling, otherwise they are able to cancel since he will not be given chemotherapy that day due to illness. Justin and are aware of this. He is to return to ED or clinic if concerns should arise. - General Info Date of Service: 06/09/17 Admission Dx/Problem (Free Text: Admission Diagnosis/Problem Admission Diagnosis/Problem Fever Subjective Update: Feeling much better today, eat more. Sour stomach has improved, went away after some tums last night. Denies chest pain or SOB. Complaints of dry skin to upper arms that is slightly itchy at times. Functional Status: Reports: Pain Controlled, Tolerating Diet, Ambulating, Urinating - Review of Systems General: Reports: No Symptoms. Denies: Fever HEENT: Reports: No Symptoms. Denies: Headaches, Sore Throat, Visual Changes Pulmonary: Reports: No Symptoms. Denies: Shortness of Breath, Cough, Sputum Cardiovascular: Reports: No Symptoms. Denies: Chest Pain, Dyspnea on Exertion, Edema Gastrointestinal: Reports: Decreased Appetite. Denies: Abdominal Pain, Nausea, Vomiting Genitourinary: Reports: No Symptoms. Denies: Dysuria, Frequency, Burning, Pain Musculoskeletal: Reports: No Symptoms. Denies: Neck Pain Skin: Reports: Dryness Neurological: Reports: No Symptoms Psychiatric: Reports: No Symptoms - Patient Data Vitals - Most Recent: Last Vital Signs Temp 98.1 F 06/09/17 07:00 Pulse 77 06/09/17 07:00 Resp 18 06/09/17 07:00 BP 104/65 06/09/17 07:00 Pulse Ox 97 06/09/17 07:00 Weight - Most Recent: 56.274 kg I&O - Last 24 hours: Intake & Output 06/08/17 06/09/17 06/09/17 22:59 06:59 14:59 Intake Total 2875 400 Output Total 520 850 Balance 2355 -450 Lab Results - Last 24 hrs: Laboratory Results - last 24 hr 06/09/17 06/09/17 Range/Units 05:37 05:37 WBC 14.16 H (4.0-11.0) K/uL RBC 3.49 L (4.50-5.90) M/uL Hgb 8.7 L (13.0-17.0) g/dL Hct 28.3 L (38.0-50.0) % MCV 81.1 (80.0-98.0) fL MCH 24.9 L (27.0-32.0) pg MCHC 30.7 L (31.0-37.0) g/dL RDW Std Deviation 51.6 (28.0-62.0) fl RDW Coeff of Rosina 18 H (11.0-15.0) % Plt Count 187 (150-400) K/uL MPV 9.20 (7.40-12.00) fL Add Manual Diff YES Neutrophils % (Manual) 79 (48.0-80.0) % Band Neutrophils % 11 % Lymphocytes % (Manual) 5 L (16.0-40.0) % Monocytes % (Manual) 5 (0.0-15.0) % Nucleated RBC % 0.0 /100WBC Absolute Seg Neuts 11.2 H (1.4-5.7) Band Neutrophils # 1.6 Lymphocytes # (Manual) 0.7 (0.6-2.4) Monocytes # (Manual) 0.7 (0.0-0.8) Nucleated RBCs # 0 K/uL Sodium 138 (136-146) mmol/L Potassium 3.4 L (3.5-5.1) mmol/L Chloride 109 (98-110) mmol/L Carbon Dioxide 21 (21-31) mmol/L BUN 8 (6.0-23.0) mg/dL Creatinine 0.6 (0.6-1.5) mg/dL Est Cr Clr Drug Dosing 88.58 mL/min Estimated GFR (MDRD) > 60.0 ml/min Glucose 80 (60-110) mg/dL Calcium 6.5 L (8.8-10.8) mg/dL Med Orders - Current: Current Medications Acetaminophen (Tylenol) 650 mg PO Q4H PRN PRN Reason: Pain (mild 1-3) Calcium Carbonate/Glycine (Tums) 1,000 mg PO Q2HR PRN PRN Reason: Indigestion Last Admin: 06/08/17 20:12 Dose: 1,000 mg Enoxaparin Sodium (Lovenox) 40 mg SUBCUT Q24H [facility] Last Admin: 06/08/17 17:08 Dose: 40 mg Gabapentin (Neurontin) 300 mg PO BEDTIME [facility] Last Admin: 06/08/17 21:44 Dose: 300 mg Sodium Chloride (Normal Saline) 1,000 mls @ 100 mls/hr IV ASDIRECTED [facility] Last Admin: 06/08/17 23:59 Dose: 100 mls/hr Levofloxacin/Dextrose 750 mg/ (Premix) 150 mls @ 100 mls/hr IV Q24H [facility] Last Admin: 06/08/17 11:10 Dose: 100 mls/hr Mirtazapine (Remeron) 30 mg PO BEDTIME [facility] Last Admin: 06/08/17 21:44 Dose: 30 mg Multivitamins/Minerals (Thera M Plus) 1 tab PO DAILY [facility] Last Admin: 06/09/17 09:10 Dose: 1 tab Omeprazole (Omeprazole) 40 mg PO ACBREAKFAST [facility] Last Admin: 06/09/17 06:29 Dose: 40 mg Ondansetron HCl (Zofran) 4 mg IVPUSH Q4H PRN PRN Reason: Nausea Last Admin: 06/08/17 21:50 Dose: 4 mg Prednisone (Prednisone) 5 mg PO DAILY [facility] Last Admin: 06/09/17 09:10 Dose: 5 mg Simvastatin (Zocor) 20 mg PO BEDTIME [facility] Last Admin: 06/08/17 21:43 Dose: 20 mg Sodium Chloride (Saline Flush) 10 ml FLUSH ASDIRECTED PRN PRN Reason: Keep Vein Open Discontinued Medications Levofloxacin/Dextrose 750 mg/ (Premix) 150 mls @ 100 mls/hr IV ONETIME ONE Stop: 06/07/17 15:14 Last Admin: 06/07/17 13:53 Dose: 100 mls/hr Ondansetron HCl (Zofran) 4 mg IVPUSH ONETIME ONE Stop: 06/07/17 12:18 Last Admin: 06/07/17 12:32 Dose: 4 mg - Exam General: Reports: Alert, Oriented, Cooperative, No Acute Distress HEENT: Reports: Mucous Membr. Moist/[place] Neck: Reports: Supple Lungs: Reports: Clear to Auscultation, Normal Respiratory Effort Cardiovascular: Reports: Regular Rate, Regular Rhythm GI/Abdominal Exam: Normal Bowel Sounds, Soft, Non-Tender, No Organomegaly, No Distention, No Abnormal Bruit, No Mass, Pelvis Stable Back Exam: Reports: Normal Inspection, Full Range of Motion Extremities: Normal Inspection, Normal Range of Motion, Non-Tender, No Pedal Edema, Normal Capillary Refill Skin: Reports: Dry (and scaly appearing to upper arms, some scratching noted from itching, but no infection noted or erythema noted. ) Neurological: Reports: No New Focal Deficit Psy/Mental Status: Reports: Alert, Normal Affect, Normal Mood *Q Meaningful Use (DIS) - VTE *Q VTE Criteria *Q: - Stroke *Q Stroke Criteria *Q: - AMI *Q AMI Criteria *Q:
== END 2017-06-09 11:25 | disposition home or self-care (01) ==
LOC: MW.ED 12:02 → MW.MS 13:46
PROVIDERS: ADMIT Internal Medicine; ATTEND Internal Medicine
DX: R50.9 Fever, unspecified (principal); I25.10 Atherosclerotic heart disease of native coronary artery without angina pectoris; E78.5 Hyperlipidemia, unspecified; G47.33 Obstructive sleep apnea (adult) (pediatric); E86.0 Dehydration; I73.9 Peripheral vascular disease, unspecified; C79.51 Secondary malignant neoplasm of bone; M19.90 Unspecified osteoarthritis, unspecified site; M81.0 Age-related osteoporosis without current pathological fracture; G62.0 Drug-induced polyneuropathy; T45.1X5A Adverse effect of antineoplastic and immunosuppressive drugs, initial encounter; C18.0 Malignant neoplasm of cecum; D72.829 Elevated white blood cell count, unspecified; Z79.82 Long term (current) use of aspirin; Z79.899 Other long term (current) drug therapy; Z85.46 Personal history of malignant neoplasm of prostate; Z85.828 Personal history of other malignant neoplasm of skin; Z90.89 Acquired absence of other organs; Z90.49 Acquired absence of other specified parts of digestive tract; Z95.1 Presence of aortocoronary bypass graft; Z87.891 Personal history of nicotine dependence
CPT/HCPCS: 36415; 71046; 74018; 80048; 80053; 81001; 83735; 84100; 85025; 87040; 87081; 87086; 87804; 87880; 96361; 96365; 96366; 96372; 96375; 96376; 99285; A9270; G0378; J1642; J1650; J1956; J2405; J7040; 99284

== ENCOUNTER 2017-08-29 12:00 | Inpatient (IN) | payer OTHER, MEDICARE ==
[2017-08-29] MEDS ORDERED: Ondansetron 4 MG/2 ML SDV IVPUSH ONE (12:22)
[2017-08-29] MEDS ORDERED: Ketorolac 30 MG/ML SDV IVPUSH ONE (12:22)
--- NOTE | 2017-08-29 12:25 | EDM.PDOC ---
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 Past medical history: As per history of present illness and as reviewed below otherwise noncontributory. Surgical history: As per history of present illness and as reviewed below otherwise noncontributory. Social history: No reported history of drug or alcohol abuse. Family history: As per history of present illness and as reviewed below otherwise noncontributory. Physical exam: HEENT: Atraumatic, normocephalic, pupils reactive, negative for conjunctival pallor or scleral icterus, mucous membranes moist, throat clear, neck supple, nontender, trachea midline. Lungs: Clear to auscultation, breath sounds equal bilaterally, chest nontender. Heart: S1S2, regular, negative for clicks, rubs, or JVD. Abdomen: Soft, distended diffusely tender Negative for masses or hepatosplenomegaly. Negative for costovertebral tenderness. Pelvis: Stable nontender. Genitourinary: Deferred. Rectal: Deferred. Extremities: Atraumatic, negative for cords or calf pain. Neurovascular unremarkable. Neuro: Awake, alert, oriented. Cranial nerves II through XII unremarkable. Cerebellum unremarkable. Motor and sensory unremarkable throughout. Exam nonfocal. Diagnostics: [CBC CMP UA troponin lipase INR Abdomen flat and upright ] Therapeutics: [Normal saline 1 L Zofran 8 mg IV Toradol 30 mg IV Reglan 5 mg IV ] Impression: Abdominal distention consistent with bowel obstruction [Abdominal pain Chronic history of baseline] Definitive disposition and diagnosis as appropriate pending reevaluation and review of above. abdomen Pain Score (Numeric/FACES): 1 - Related Data Allergies Allergy/AdvReac Type Severity Reaction Status Date / Time No Known Allergies Allergy Verified 08/29/17 12:11 Home Meds: Home Meds Aspirin [[place] Aspirin] 81 mg PO DAILY 10/12/16 [History] Cholecalciferol (Vitamin D3) [Vitamin D3] 1,000 units PO DAILY 10/12/16 [History ] Multivitamin [Multivitamins] 1 tab PO DAILY 10/12/16 [History] Simvastatin [Zocor] 20 mg PO BEDTIME 10/12/16 [History] Ondansetron [Zofran ODT] 4 mg PO Q8H PRN 01/24/17 [History] Leuprolide [Lupron Depot 1-Month] 3.75 mg IM ASDIRECTED 06/07/17 [History] Loperamide HCl [Anti-Diarrheal] 1 mg PO ASDIRECTED PRN 06/07/17 [History] Mirtazapine [Remeron] 30 mg PO BEDTIME 06/07/17 [History] Omeprazole 40 mg PO BID 06/07/17 [History] Polyethylene Glycol 3350 [MiraLAX] 17 gm PO DAILY PRN 06/07/17 [History] predniSONE 20 mg PO DAILY 06/07/17 [History] Lactulose [Cephulac] 3 tsp PO BID 08/29/17 [History] Past Medical History HEENT History: Reports: None Cardiovascular History: Reports: CAD, High Cholesterol, Hypertension, PVD Other Cardiovascular History: coronary artherosclerosis Respiratory History: Reports: Sleep Apnea Other Respiratory History: sleep apnea in the past (had uvuloplasty for this) Gastrointestinal History: Reports: Chronic Diarrhea, Colon Polyp, Irritable Bowel Syndrome, Other (See Below) Other Gastrointestinal History: Bowel Obstruction in November 2016 Genitourinary History: Reports: Renal Calculus Other Genitourinary History: h/o prostate cancer 4 years ago with radical prostatectomy Musculoskeletal History: Reports: Arthritis, Fracture, Osteoporosis Other Musculoskeletal History: hx fx hand Neurological History: Reports: Neuropathy, Peripheral Psychiatric History: Reports: None Hematologic History: Reports: Anemia Oncologic (Cancer) History: Reports: Basal Cell Carcinoma, Colon, Prostate Dermatologic History: Reports: Other (See Below) Other Dermatologic History: raynauds - Infectious Disease History Infectious Disease History: Reports: Mumps - Past Surgical History Head Surgeries/Procedures: Reports: None HEENT Surgical History: Reports: Cataract Surgery, Tonsillectomy, Other (See Below) Other HEENT Surgeries/Procedures: hx cataract surgery and eye surgery for infection, hx of uvuloplasty with tonsillectomy Cardiovascular Surgical History: Reports: Coronary Artery Bypass, Vascular Surgery Respiratory Surgical History: Reports: None GI Surgical History: Reports: Appendectomy, Colonoscopy Male Surgical History: Reports: Prostatectomy Dermatological Surgical History: Reports: Skin Biopsy Social & Family History - Family History Family Medical History: Noncontributory Cardiac: Reports: Other (See Below) Other Cardiac Family History: Father had a pacemaker Oncologic: Reports: Other (See Below) Other Oncologic Family History: Family Hx of CA of unknown type - Tobacco Use Smoking Status *Q: Former Smoker Used Tobacco, but Quit: Yes Month/Year Tobacco Last Used: 25 years ago Second Hand Smoke Exposure: No - Caffeine Use Caffeine Use: Reports: Coffee - Recreational Drug Use Recreational Drug Use: No - Living Situation & Occupation Living situation: Reports: ED ROS GENERAL - Review of Systems Review Of Systems: ROS reveals no pertinent complaints other than HPI. ED EXAM, GENERAL - Physical Exam Exam: See Below Course - Vital Signs Last Recorded V/S: Last Vital Signs Temp 98.8 F 08/29/17 12:08 Pulse 68 08/29/17 13:20 Resp 16 08/29/17 13:20 BP 112/79 08/29/17 13:20 Pulse Ox 92 L 08/29/17 13:20 - Orders/Labs/Meds Orders: Active Orders 24 hr Category Date Time Status UA W/MICROSCOPIC [URIN] Stat Lab 08/29/17 13:55 Ordered Sodium Chloride 0.9% [Normal Saline] 1,000 ml Med 08/29/17 12:30 Active IV STAT Medication Orders Sodium Chloride (Normal Saline) 1,000 mls @ 125 mls/hr IV STAT AMADO Last Admin: 08/29/17 12:36 Dose: 125 mls/hr Labs: Laboratory Tests 08/29/17 08/29/17 08/29/17 Range/Units 12:34 12:34 12:34 WBC 7.77 (4.0-11.0) K/uL RBC 4.91 (4.50-5.90) M/uL Hgb 10.5 L (13.0-17.0) g/dL Hct 34.9 L (38.0-50.0) % MCV 71.1 L (80.0-98.0) fL MCH 21.4 L (27.0-32.0) pg MCHC 30.1 L (31.0-37.0) g/dL RDW Std Deviation 41.7 (28.0-62.0) fl RDW Coeff of Rosina 16 H (11.0-15.0) % Plt Count 358 (150-400) K/uL MPV 8.60 (7.40-12.00) fL Neut % (Auto) 96.6 H (48.0-80.0) % Lymph % (Auto) 1.8 L (16.0-40.0) % [place] % (Auto) 1.5 (0.0-15.0) % Eos % (Auto) 0.0 (0.0-7.0) % Baso % (Auto) 0.1 (0.0-1.5) % Neut # (Auto) 7.5 H (1.4-5.7) K/uL Lymph # (Auto) 0.1 L (0.6-2.4) K/uL [place] # (Auto) 0.1 (0.0-0.8) K/uL Eos # (Auto) 0.0 (0.0-0.7) K/uL Baso # (Auto) 0.0 (0.0-0.1) K/uL Nucleated RBC % 0.0 /100WBC Nucleated RBCs # 0 K/uL INR 1.01 Sodium 138 (136-148) mmol/L Potassium 4.1 (3.5-5.1) mmol/L Chloride 101 (98-107) mmol/L Carbon Dioxide 26.8 (21.0-32.0) mmol/L BUN 16 (7.0-18.0) mg/dL Creatinine 0.7 L (0.8-1.3) mg/dL Est Cr Clr Drug Dosing 76.50 mL/min Estimated GFR (MDRD) > 60.0 ml/min Glucose 105 (74-106) mg/dL Calcium 8.9 (8.5-10.1) mg/dL Total Bilirubin 0.3 (0.2-1.0) mg/dL AST 18 (15-37) IU/L ALT 19 (14-63) IU/L Alkaline Phosphatase 58 (46-116) U/L Troponin I < 0.050 (0.000-0.056) ng/mL Total Protein 6.1 L (6.4-8.2) g/dL Albumin 3.0 L (3.4-5.0) g/dL Globulin 3.1 (2.0-3.5) g/dL Albumin/Globulin Ratio 1.0 L (1.3-2.8) Lipase 161 (73-393) U/L Urine Color Urine Appearance Urine pH (5.0-8.0) Ur Specific [place] (1.001-1.035) Urine Protein (NEGATIVE) mg/dL Urine Glucose (UA) (NEGATIVE) mg/dL Urine Ketones (NEGATIVE) mg/dL Urine Occult Blood (NEGATIVE) Urine Nitrite (NEGATIVE) Urine Bilirubin (NEGATIVE) Urine Ictotest Urine Urobilinogen (<2.0) EU/dL Ur Leukocyte Esterase (NEGATIVE) Urine RBC (0-2/HPF) Urine WBC (0-5/HPF) Ur Epithelial Cells (NONE-FEW) Calcium Oxalate Crystal (NEGATIVE) Urine Bacteria (NEGATIVE) Urine Mucus (NONE-MOD) 08/29/17 Range/Units 13:55 WBC (4.0-11.0) K/uL RBC (4.50-5.90) M/uL Hgb (13.0-17.0) g/dL Hct (38.0-50.0) % MCV (80.0-98.0) fL MCH (27.0-32.0) pg MCHC (31.0-37.0) g/dL RDW Std Deviation (28.0-62.0) fl RDW Coeff of Rosina (11.0-15.0) % Plt Count (150-400) K/uL MPV (7.40-12.00) fL Neut % (Auto) (48.0-80.0) % Lymph % (Auto) (16.0-40.0) % [place] % (Auto) (0.0-15.0) % Eos % (Auto) (0.0-7.0) % Baso % (Auto) (0.0-1.5) % Neut # (Auto) (1.4-5.7) K/uL Lymph # (Auto) (0.6-2.4) K/uL [place] # (Auto) (0.0-0.8) K/uL Eos # (Auto) (0.0-0.7) K/uL Baso # (Auto) (0.0-0.1) K/uL Nucleated RBC % /100WBC Nucleated RBCs # K/uL INR Sodium (136-148) mmol/L Potassium (3.5-5.1) mmol/L Chloride (98-107) mmol/L Carbon Dioxide (21.0-32.0) mmol/L BUN (7.0-18.0) mg/dL Creatinine (0.8-1.3) mg/dL Est Cr Clr Drug Dosing mL/min Estimated GFR (MDRD) ml/min Glucose (74-106) mg/dL Calcium (8.5-10.1) mg/dL Total Bilirubin (0.2-1.0) mg/dL AST (15-37) IU/L ALT (14-63) IU/L Alkaline Phosphatase (46-116) U/L Troponin I (0.000-0.056) ng/mL Total Protein (6.4-8.2) g/dL Albumin (3.4-5.0) g/dL Globulin (2.0-3.5) g/dL Albumin/Globulin Ratio (1.3-2.8) Lipase (73-393) U/L Urine Color YELLOW Urine Appearance CLEAR Urine pH 5.0 (5.0-8.0) Ur Specific [place] >= 1.030 (1.001-1.035) Urine Protein TRACE (NEGATIVE) mg/dL Urine Glucose (UA) NEGATIVE (NEGATIVE) mg/dL Urine Ketones 15 H (NEGATIVE) mg/dL Urine Occult Blood NEGATIVE (NEGATIVE) Urine Nitrite NEGATIVE (NEGATIVE) Urine Bilirubin SMALL H (NEGATIVE) Urine Ictotest NEGATIVE Urine Urobilinogen 0.2 (<2.0) EU/dL Ur Leukocyte Esterase NEGATIVE (NEGATIVE) Urine RBC 0-2 (0-2/HPF) Urine WBC 0-2 (0-5/HPF) Ur Epithelial Cells RARE (NONE-FEW) Calcium Oxalate Crystal FEW (NEGATIVE) Urine Bacteria FEW (NEGATIVE) Urine Mucus LIGHT (NONE-MOD) Meds: Medications Generic Name Dose Route Start Last Admin Trade Name Freq PRN Reason Stop Dose Admin Sodium Chloride 1,000 mls @ 125 mls/hr 08/29/17 12:30 08/29/17 12:36 Normal Saline IV 125 mls/hr STAT AMADO Administration Discontinued Medications Generic Name Dose Route Start Last Admin Trade Name Kiana PRN Reason Stop Dose Admin Ketorolac Tromethamine 30 mg 08/29/17 12:22 08/29/17 13:14 Toradol IVPUSH 08/29/17 12:23 Not Given ONETIME ONE Lidocaine HCl 20 ml 08/29/17 14:09 Xylocaine 1% INJECT 08/29/17 14:10 ONETIME ONE Metoclopramide HCl 5 mg 08/29/17 14:31 Reglan IV 08/29/17 14:32 ONETIME ONE Morphine Sulfate 2 mg 08/29/17 12:27 08/29/17 12:42 Morphine IVPUSH 08/29/17 12:28 2 mg ONETIME ONE Administration Ondansetron HCl 8 mg 08/29/17 12:22 08/29/17 12:43 Zofran IVPUSH 08/29/17 12:23 8 mg ONETIME ONE Administration Departure - Departure Time of Disposition: 14:36 Disposition: Admitted As Inpatient 65 Condition: Fair Clinical Impression: Bowel obstruction - Discharge Information Referrals: Brennon Garcia MD [Primary Care Provider] - Forms: ED Department Discharge - My Orders Last 24 Hours: My Active Orders 08/29/17 12:30 Sodium Chloride 0.9% [Normal Saline] 1,000 ml IV STAT 08/29/17 13:55 UA W/MICROSCOPIC [URIN] Stat - Assessment/Plan Last 24 Hours: My Active Orders 08/29/17 12:30 Sodium Chloride 0.9% [Normal Saline] 1,000 ml IV STAT 08/29/17 13:55 UA W/MICROSCOPIC [URIN] Stat
[2017-08-29] MEDS ORDERED: Morphine 4 MG/ML Syringe IVPUSH ONE (12:27)
[2017-08-29] MEDS: Sodium Chloride 0.9% 1,000 ML IV SCH ×2 (12:36→22:19)
[2017-08-29 13:24] LABS: CHLORIDE,CL 101 mmol/L (98-107); SODIUM,NA 138 mmol/L (136-148)
[2017-08-29] MEDS ORDERED: Lidocaine 1% 20 ML MDV INJECT ONE (14:09)
--- NOTE | 2017-08-29 14:13 | CR ---
EXAMINATION: Chest and abdomen HISTORY: Pain COMPARISON: 06/07/2017 TECHNIQUE: PA chest and AP and upright views of the abdomen FINDINGS: The lungs are clear without focal consolidation. No pleural effusion or pneumothorax. Right -sided portacatheter is noted. Median sternotomy wires are present. Mild hyperinflation and interstit ial prominence with blunting of the right costophrenic angle. No free air under the diaphragm. There is a nonobstructive bowel gas pattern. Clips project over the pelvis. On mineralization is osteopenic. No organomegaly or abnormal calcifications identified. IMPRESSION: 1. Small right pleural effusion. 2. Nonobstructive bowel gas pattern.
[2017-08-29] MEDS ORDERED: Metoclopramide 10 MG/2 ML SDV IV ONE (14:31)
[2017-08-29] MEDS ORDERED: Albuterol/Ipratropium 3.0-0.5 MG/3 ML Neb Soln NEB PRN (15:12)
[2017-08-29] MEDS ORDERED: Ondansetron 4 MG/2 ML SDV IVPUSH PRN (15:12)
--- NOTE | 2017-08-29 15:31 | PCM.HP ---
H&P History of Present Illness - General Date of Service: 08/29/17 Admit Problem/Dx: Admission Diagnosis/Problem Admission Diagnosis/Problem Abdominal pain Source of Information: Patient History Limitations: Reports: No Limitations - History of Present Illness Initial Comments - Free Text/Narative: 71-year-old male that is being admitted with abdominal pain and distention. 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 This was found last year. The patient underwent a bowel resection in November [address] Tinajero in [place], [place]. The patient was told by the surgeon that the area where the resection was done, that one end was cleared of cancer and the other end still had some cancer cells present. The patient had a follow up appointment with the surgeon and no other follow-up appointments. The patient is currently following with an oncologist at [facility] in [place], [place]. He follows with him every other week. He last had any treatment for his small bowel carcinoma 2 weeks ago with 5-FU. Patient has not had any other treatments in the two-week period since that treatment. Patient states that he also had a paracentesis done of the abdomen in November 2016 and was told that there were "other cells" in the fluid. Patient also has a history of prostate cancer for which he takes Lupron every 12 weeks and follows with Dr. Martinez. The patient states that one month ago he had a CT abdomen/pelvis which showed an inflammatory bowel. Follow-up CT [address] contrast showed no new findings. The patient states that this abdominal pain and distention that he is experiencing similar to what it spares previously linear small bowel obstruction. He also notes not having had a bowel movement or passing any gas over the past day or so. He also notes decreased appetite, nausea and one episode of vomiting. The abdominal pain does not radiate and he denies any chest pain, palpitations, shortness of breath, wheezing, cough, headache, dizziness. Patient states that it is not abnormal for him to go a few days without a bowel movement. His pain of the abdomen that with the patient come in for that he may have a bowel obstruction. ER course: His lab workup was pretty unremarkable in the ER. CBC, CMP, initial troponin, lipase, UA were all unremarkable. His abdomen/pelvis x-ray showed a small right pleural effusion and blunting of the right costophrenic angle but was read as showing no bowel obstruction. The x-ray was looked at by the ER physician and he believes that there are air-fluid levels to suggest the patient have the beginnings of a small bowel obstruction. The patient was given Toradol, Reglan, morphine, Zofran and an IV fluid bolus well in the ER. abdomen Pain Score (Numeric/FACES): 1 - Related Data Allergies/Adverse Reactions: Allergies Allergy/AdvReac Type Severity Reaction Status Date / Time No Known Allergies Allergy Verified 08/29/17 12:11 Home Medications: Home Meds Aspirin [Yolo Aspirin] 81 mg PO DAILY 10/12/16 [History] Cholecalciferol (Vitamin D3) [Vitamin D3] 1,000 units PO DAILY 10/12/16 [History ] Multivitamin [Multivitamins] 1 tab PO DAILY 10/12/16 [History] Simvastatin [Zocor] 20 mg PO BEDTIME 10/12/16 [History] Ondansetron [Zofran ODT] 4 mg PO Q8H PRN 01/24/17 [History] Leuprolide [Lupron Depot 1-Month] 3.75 mg IM ASDIRECTED 06/07/17 [History] Loperamide HCl [Anti-Diarrheal] 1 mg PO ASDIRECTED PRN 06/07/17 [History] Mirtazapine [Remeron] 30 mg PO BEDTIME 06/07/17 [History] Omeprazole 40 mg PO BID 06/07/17 [History] Polyethylene Glycol 3350 [MiraLAX] 17 gm PO DAILY PRN 06/07/17 [History] predniSONE 20 mg PO DAILY 06/07/17 [History] Lactulose [Cephulac] 3 tsp PO BID 08/29/17 [History] Past Medical History HEENT History: Reports: None Cardiovascular History: Reports: CAD, High Cholesterol, Hypertension, PVD Other Cardiovascular History: coronary artherosclerosis Respiratory History: Reports: Sleep Apnea Other Respiratory History: sleep apnea in the past (had uvuloplasty for this) Gastrointestinal History: Reports: Chronic Diarrhea, Colon Polyp, Irritable Bowel Syndrome, Other (See Below) Other Gastrointestinal History: Bowel Obstruction in November 2016 Genitourinary History: Reports: Renal Calculus Other Genitourinary History: h/o prostate cancer 4 years ago with radical prostatectomy Musculoskeletal History: Reports: Arthritis, Fracture, Osteoporosis Other Musculoskeletal History: hx fx hand Neurological History: Reports: Neuropathy, Peripheral Psychiatric History: Reports: None Hematologic History: Reports: Anemia Oncologic (Cancer) History: Reports: Basal Cell Carcinoma, Colon, Prostate Dermatologic History: Reports: Other (See Below) Other Dermatologic History: raynauds - Infectious Disease History Infectious Disease History: Reports: Mumps - Past Surgical History Head Surgeries/Procedures: Reports: None HEENT Surgical History: Reports: Cataract Surgery, Tonsillectomy, Other (See Below) Other HEENT Surgeries/Procedures: hx cataract surgery and eye surgery for infection, hx of uvuloplasty with tonsillectomy Cardiovascular Surgical History: Reports: Coronary Artery Bypass, Vascular Surgery Respiratory Surgical History: Reports: None GI Surgical History: Reports: Appendectomy, Colonoscopy Male Surgical History: Reports: Prostatectomy Dermatological Surgical History: Reports: Skin Biopsy Social & Family History - Family History Family Medical History: Noncontributory Cardiac: Reports: Other (See Below) Other Cardiac Family History: Father had a pacemaker Oncologic: Reports: Other (See Below) Other Oncologic Family History: Family Hx of CA of unknown type - Tobacco Use Smoking Status *Q: Former Smoker Used Tobacco, but Quit: Yes Month/Year Tobacco Last Used: 25 years ago Second Hand Smoke Exposure: No - Caffeine Use Caffeine Use: Reports: Coffee - Recreational Drug Use Recreational Drug Use: No - Living Situation & Occupation Living situation: Reports: H&P Review of Systems - Review of Systems: Review Of Systems: See Below General: Reports: No Symptoms, Decreased Appetite HEENT: Reports: No Symptoms Pulmonary: Reports: No Symptoms Cardiovascular: Reports: No Symptoms Gastrointestinal: Reports: Abdominal Pain, Decreased Appetite, Distension, Nausea, Vomiting. Denies: Flatus Genitourinary: Reports: No Symptoms Musculoskeletal: Reports: No Symptoms Skin: Reports: No Symptoms Psychiatric: Reports: No Symptoms Neurological: Reports: No Symptoms Hematologic/Lymphatic: Reports: No Symptoms Immunologic: Reports: No Symptoms Exam - Exam Exam: See Below - Vital Signs Vital Signs: Last Vital Signs Temp 98.8 F 08/29/17 12:08 Pulse 70 08/29/17 15:10 Resp 16 08/29/17 15:10 BP 166/87 H 08/29/17 15:10 Pulse Ox 96 08/29/17 15:10 Weight: 125 lb - Exam General: Alert, Oriented, Cooperative HEENT: Conjunctiva Clear, EOMI, Hearing Intact, Mucosa Moist & [place], Nares Patent, Normal Nasal Septum Neck: Supple, Trachea Midline, 2 Lungs: Clear to Auscultation, Normal Respiratory Effort Cardiovascular: Regular Rate, Regular Rhythm GI/Abdominal Exam: Normal Bowel Sounds, Soft, No Organomegaly, No Abnormal Bruit , No Mass, Pelvis Stable, Distended, Tender Extremities: Normal Inspection, Normal Range of Motion, Non-Tender, No Pedal Edema, Normal Capillary Refill Peripheral Pulses: 2+: Radial (L), Radial (R), Posterior Tibial (L), Posterior Tibial (R) Skin: Warm, Dry, Intact Neuro Extensive - Mental Status: Alert, Oriented x3, Normal Mood/Affect, Normal Cognition Psychiatric: Alert, Normal Affect, Normal Mood - Patient Data Lab Results Last 24 hrs: Laboratory Results - last 24 hr 08/29/17 08/29/17 08/29/17 Range/Units 12:34 12:34 12:34 WBC 7.77 (4.0-11.0) K/uL RBC 4.91 (4.50-5.90) M/uL Hgb 10.5 L (13.0-17.0) g/dL Hct 34.9 L (38.0-50.0) % MCV 71.1 L (80.0-98.0) fL MCH 21.4 L (27.0-32.0) pg MCHC 30.1 L (31.0-37.0) g/dL RDW Std Deviation 41.7 (28.0-62.0) fl RDW Coeff of Rosina 16 H (11.0-15.0) % Plt Count 358 (150-400) K/uL MPV 8.60 (7.40-12.00) fL Neut % (Auto) 96.6 H (48.0-80.0) % Lymph % (Auto) 1.8 L (16.0-40.0) % Campbell % (Auto) 1.5 (0.0-15.0) % Eos % (Auto) 0.0 (0.0-7.0) % Baso % (Auto) 0.1 (0.0-1.5) % Neut # (Auto) 7.5 H (1.4-5.7) K/uL Lymph # (Auto) 0.1 L (0.6-2.4) K/uL Campbell # (Auto) 0.1 (0.0-0.8) K/uL Eos # (Auto) 0.0 (0.0-0.7) K/uL Baso # (Auto) 0.0 (0.0-0.1) K/uL Nucleated RBC % 0.0 /100WBC Nucleated RBCs # 0 K/uL INR 1.01 Sodium 138 (136-148) mmol/L Potassium 4.1 (3.5-5.1) mmol/L Chloride 101 (98-107) mmol/L Carbon Dioxide 26.8 (21.0-32.0) mmol/L BUN 16 (7.0-18.0) mg/dL Creatinine 0.7 L (0.8-1.3) mg/dL Est Cr Clr Drug Dosing 76.50 mL/min Estimated GFR (MDRD) > 60.0 ml/min Glucose 105 (74-106) mg/dL Calcium 8.9 (8.5-10.1) mg/dL Total Bilirubin 0.3 (0.2-1.0) mg/dL AST 18 (15-37) IU/L ALT 19 (14-63) IU/L Alkaline Phosphatase 58 (46-116) U/L Troponin I < 0.050 (0.000-0.056) ng/mL Total Protein 6.1 L (6.4-8.2) g/dL Albumin 3.0 L (3.4-5.0) g/dL Globulin 3.1 (2.0-3.5) g/dL Albumin/Globulin Ratio 1.0 L (1.3-2.8) Lipase 161 (73-393) U/L Urine Color Urine Appearance Urine pH (5.0-8.0) Ur Specific Belding (1.001-1.035) Urine Protein (NEGATIVE) mg/dL Urine Glucose (UA) (NEGATIVE) mg/dL Urine Ketones (NEGATIVE) mg/dL Urine Occult Blood (NEGATIVE) Urine Nitrite (NEGATIVE) Urine Bilirubin (NEGATIVE) Urine Ictotest Urine Urobilinogen (<2.0) EU/dL Ur Leukocyte Esterase (NEGATIVE) Urine RBC (0-2/HPF) Urine WBC (0-5/HPF) Ur Epithelial Cells (NONE-FEW) Calcium Oxalate Crystal (NEGATIVE) Urine Bacteria (NEGATIVE) Urine Mucus (NONE-MOD) 08/29/17 Range/Units 13:55 WBC (4.0-11.0) K/uL RBC (4.50-5.90) M/uL Hgb (13.0-17.0) g/dL Hct (38.0-50.0) % MCV (80.0-98.0) fL MCH (27.0-32.0) pg MCHC (31.0-37.0) g/dL RDW Std Deviation (28.0-62.0) fl RDW Coeff of Rosina (11.0-15.0) % Plt Count (150-400) K/uL MPV (7.40-12.00) fL Neut % (Auto) (48.0-80.0) % Lymph % (Auto) (16.0-40.0) % Campbell % (Auto) (0.0-15.0) % Eos % (Auto) (0.0-7.0) % Baso % (Auto) (0.0-1.5) % Neut # (Auto) (1.4-5.7) K/uL Lymph # (Auto) (0.6-2.4) K/uL Campbell # (Auto) (0.0-0.8) K/uL Eos # (Auto) (0.0-0.7) K/uL Baso # (Auto) (0.0-0.1) K/uL Nucleated RBC % /100WBC Nucleated RBCs # K/uL INR Sodium (136-148) mmol/L Potassium (3.5-5.1) mmol/L Chloride (98-107) mmol/L Carbon Dioxide (21.0-32.0) mmol/L BUN (7.0-18.0) mg/dL Creatinine (0.8-1.3) mg/dL Est Cr Clr Drug Dosing mL/min Estimated GFR (MDRD) ml/min Glucose (74-106) mg/dL Calcium (8.5-10.1) mg/dL Total Bilirubin (0.2-1.0) mg/dL AST (15-37) IU/L ALT (14-63) IU/L Alkaline Phosphatase (46-116) U/L Troponin I (0.000-0.056) ng/mL Total Protein (6.4-8.2) g/dL Albumin (3.4-5.0) g/dL Globulin (2.0-3.5) g/dL Albumin/Globulin Ratio (1.3-2.8) Lipase (73-393) U/L Urine Color YELLOW Urine Appearance CLEAR Urine pH 5.0 (5.0-8.0) Ur Specific Belding >= 1.030 (1.001-1.035) Urine Protein TRACE (NEGATIVE) mg/dL Urine Glucose (UA) NEGATIVE (NEGATIVE) mg/dL Urine Ketones 15 H (NEGATIVE) mg/dL Urine Occult Blood NEGATIVE (NEGATIVE) Urine Nitrite NEGATIVE (NEGATIVE) Urine Bilirubin SMALL H (NEGATIVE) Urine Ictotest NEGATIVE Urine Urobilinogen 0.2 (<2.0) EU/dL Ur Leukocyte Esterase NEGATIVE (NEGATIVE) Urine RBC 0-2 (0-2/HPF) Urine WBC 0-2 (0-5/HPF) Ur Epithelial Cells RARE (NONE-FEW) Calcium Oxalate Crystal FEW (NEGATIVE) Urine Bacteria FEW (NEGATIVE) Urine Mucus LIGHT (NONE-MOD) Result Diagrams: 08/29/17 12:34 08/29/17 12:34 - Problem List (1) Abdominal pain SNOMED Code(s): 45626477 ICD Code: R10.9 - UNSPECIFIED ABDOMINAL PAIN Status: Acute Current Visit : Yes (2) Cecal cancer Status: Chronic Current Visit: No Problem Details: metastatic cecal carcinoma Problem List Initiated/Reviewed/Updated: Yes Orders Last 24hrs: Active Orders 24 hr Category Date Time Status Admission Status [Patient Status] [ADT] Stat ADT 08/29/17 14:37 Active Height and Weight [RC] DAILY Care 08/29/17 15:12 Ordered Intake and Output [RC] QSHIFT Care 08/29/17 15:12 Ordered Notify Provider Vital Signs [RC] ASDIRECTED Care 08/29/17 15:13 Ordered Oxygen Therapy [RC] PRN Care 08/29/17 15:12 Ordered Pulse Oximetry [RC] CONTINUOUS Care 08/29/17 15:12 Ordered RT Aerosol Therapy [RC] ASDIRECTED Care 08/29/17 15:15 Ordered Up With Assistance [RC] ASDIRECTED Care 08/29/17 15:12 Ordered VTE/DVT Education [RC] PER UNIT ROUTINE Care 08/29/17 15:12 Ordered Vital Signs [RC] Q4H Care 08/29/17 15:12 Ordered Nothing per Oral Now Diet [DIET] Diet 08/29/17 Breakfast Ordered CBC WITH AUTO DIFF [HEME] AM Lab 08/30/17 05:11 Ordered COMPREHENSIVE METABOLIC PN,CMP [CHEM] AM Lab 08/30/17 05:11 Ordered UA W/MICROSCOPIC [URIN] Stat Lab 08/29/17 13:55 Ordered Albuterol/Ipratropium [DuoNeb 3.0-0.5 MG/3 ML] Med 08/29/17 15:12 Ordered 3 ml NEB Q4HRRT PRN Heparin Sodium Med 08/29/17 15:15 Ordered 5,000 units SUBCUT Q12H Ondansetron [Zofran] Med 08/29/17 15:12 Ordered 4 mg IVPUSH Q4H PRN Sodium Chloride 0.9% [Normal Saline] 1,000 ml Med 08/29/17 12:30 Active IV STAT Nasogastric Orogastric Tube Insertion [OM.PC] Urgent Oth 08/29/17 15:13 Ordered Sequential Compression Device [OM.PC] Per Unit Routine Oth 08/29/17 15:13 Ordered Medication Orders Albuterol/Ipratropium (Duoneb 3.0-0.5 Mg/3 Ml) 3 ml NEB Q4HRRT PRN PRN Reason: Shortness Of Breath/wheezing Heparin Sodium (Porcine) (Heparin Sodium) 5,000 units SUBCUT Q12H AMADO Sodium Chloride (Normal Saline) 1,000 mls @ 125 mls/hr IV STAT AMADO Last Admin: 08/29/17 12:36 Dose: 125 mls/hr Ondansetron HCl (Zofran) 4 mg IVPUSH Q4H PRN PRN Reason: Nausea Assessment/Plan Comment:: 71-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 #1. Abdominal pain with suspected small bowel obstruction: -NG tube will be placed. Patient will be made nothing by mouth. -I spoke with Dr. Moreland who is very familiar with the patient and he asked me to speak with Dr. Chairez, as he is on vacation. Dr. Chairez states that it is reasonable to keep the patient overnight and place an NG tube and see how he does. If he does not improve then we need to transfer him back to [facility] so that the surgeon that did his bowel resection, Dr. Tinajero, can assess him and decide if further intervention is needed. -Abdomen/pelvis x-ray shows small right pleural effusion but no evidence of bowel obstruction as read by Dr. Tillman, radiologist. Dr. Sosa, ER physician, looked at the x-rays while believe that the patient can have the beginnings of a small bowel obstruction. DVT prophylaxis: SCDs and heparin Disposition: We will reassess the patient in the morning and see if we need to consider transfer to [place].
[2017-08-29] MEDS ORDERED: Benzocaine 20% Topical Spray UD MUCMEM ONE (16:43)
[2017-08-29] MEDS: Ketorolac 15 MG/ML SDV IVPUSH PRN (17:07)
[2017-08-29] MEDS: Heparin Sodium 5,000 Units/ML Vial SUBCUT SCH (17:13)
--- NOTE | 2017-08-29 19:19 | CR ---
EXAM DATE: 08/29/17 PATIENT'S AGE: 71 Patient: JOSIANE BOWMAN Facility: [place], [place] Site . Site : 1945 Study: XRay Abdomen [id number]/30/2018 6:43:11 PM Ordering Physician: Carlos Eduardo Carr Final Report: INDICATION: Nasogastric tube placement. TECHNIQUE: Single view of the abdomen and pelvis at 6:33 p.m. COMPARISON: X-rays of the chest abdomen and pelvis performed earlier on the same date. FINDINGS: Enteric tube tip in the distal stomach. Dilated small bowel loops. Scattered gas and stool throughout portions of the colon and rectum. The appearance suggests a partial small bowel obstruction. Postsurgical change from a sternotomy. Surgical clips within the left upper quadrant and in the pelvis, the latter of which is likely related to a prostatectomy. IMPRESSION: Enteric tube tip in the distal stomach. Partial small-bowel obstruction. Dictated by Tad Bennett MD @ Aug 29 2017 6:57PM (Electronic Signature) Report Signed by Proxy. ART
[2017-08-30] MEDS: Ketorolac 15 MG/ML SDV IVPUSH PRN (02:35)
[2017-08-30] MEDS: Heparin Sodium 5,000 Units/ML Vial SUBCUT SCH ×2 (02:39→14:17)
[2017-08-30] MEDS: Sodium Chloride 0.9% 1,000 ML IV SCH ×3 (06:22→22:23)
[2017-08-30 07:02] LABS: CHLORIDE,CL 104 mmol/L (98-107); SODIUM,NA 137 mmol/L (136-148)
--- NOTE | 2017-08-30 09:38 | PCM.PN ---
- General Info Date of Service: 08/30/17 Admission Dx/Problem (Free Text): Admission Diagnosis/Problem Admission Diagnosis/Problem Abdominal pain Subjective Update: Patient feels as though his belly is less distended this morning. He does have the nasogastric tube placed. It has drained 50 mL. He has passed gas but no bowel movement yet. He has minimal abdominal pain. Remains nothing by mouth. Functional Status: Reports: Pain Controlled, Ambulating, Urinating - Review of Systems General: Reports: No Symptoms HEENT: Reports: No Symptoms Pulmonary: Reports: No Symptoms Cardiovascular: Reports: No Symptoms Gastrointestinal: Reports: Abdominal Pain, Decreased Appetite, Flatus Genitourinary: Reports: No Symptoms Musculoskeletal: Reports: No Symptoms Skin: Reports: No Symptoms Neurological: Reports: No Symptoms Psychiatric: Reports: No Symptoms - Patient Data Vitals - Most Recent: Last Vital Signs Temp 98.9 F 08/30/17 04:00 Pulse 77 08/30/17 04:00 Resp 19 08/30/17 04:00 BP 148/79 H 08/30/17 04:00 Pulse Ox 96 08/30/17 04:00 Weight - Most Recent: 125 lb I&O - Last 24 Hours: Intake & Output 08/29/17 08/30/17 08/30/17 22:59 06:59 14:59 Intake Total 999 Output Total 350 Balance 999 -350 Lab Results Last 24 Hours: Laboratory Results - last 24 hr 08/29/17 08/29/17 08/29/17 Range/Units 12:34 12:34 12:34 WBC 7.77 (4.0-11.0) K/uL RBC 4.91 (4.50-5.90) M/uL Hgb 10.5 L (13.0-17.0) g/dL Hct 34.9 L (38.0-50.0) % MCV 71.1 L (80.0-98.0) fL MCH 21.4 L (27.0-32.0) pg MCHC 30.1 L (31.0-37.0) g/dL RDW Std Deviation 41.7 (28.0-62.0) fl RDW Coeff of Rosina 16 H (11.0-15.0) % Plt Count 358 (150-400) K/uL MPV 8.60 (7.40-12.00) fL Neut % (Auto) 96.6 H (48.0-80.0) % Lymph % (Auto) 1.8 L (16.0-40.0) % [place] % (Auto) 1.5 (0.0-15.0) % Eos % (Auto) 0.0 (0.0-7.0) % Baso % (Auto) 0.1 (0.0-1.5) % Neut # (Auto) 7.5 H (1.4-5.7) K/uL Lymph # (Auto) 0.1 L (0.6-2.4) K/uL [place] # (Auto) 0.1 (0.0-0.8) K/uL Eos # (Auto) 0.0 (0.0-0.7) K/uL Baso # (Auto) 0.0 (0.0-0.1) K/uL Nucleated RBC % 0.0 /100WBC Nucleated RBCs # 0 K/uL INR 1.01 Sodium 138 (136-148) mmol/L Potassium 4.1 (3.5-5.1) mmol/L Chloride 101 (98-107) mmol/L Carbon Dioxide 26.8 (21.0-32.0) mmol/L BUN 16 (7.0-18.0) mg/dL Creatinine 0.7 L (0.8-1.3) mg/dL Est Cr Clr Drug Dosing 76.50 mL/min Estimated GFR (MDRD) > 60.0 ml/min Glucose 105 (74-106) mg/dL Calcium 8.9 (8.5-10.1) mg/dL Total Bilirubin 0.3 (0.2-1.0) mg/dL AST 18 (15-37) IU/L ALT 19 (14-63) IU/L Alkaline Phosphatase 58 (46-116) U/L Troponin I < 0.050 (0.000-0.056) ng/mL Total Protein 6.1 L (6.4-8.2) g/dL Albumin 3.0 L (3.4-5.0) g/dL Globulin 3.1 (2.0-3.5) g/dL Albumin/Globulin Ratio 1.0 L (1.3-2.8) Lipase 161 (73-393) U/L Urine Color Urine Appearance Urine pH (5.0-8.0) Ur Specific [place] (1.001-1.035) Urine Protein (NEGATIVE) mg/dL Urine Glucose (UA) (NEGATIVE) mg/dL Urine Ketones (NEGATIVE) mg/dL Urine Occult Blood (NEGATIVE) Urine Nitrite (NEGATIVE) Urine Bilirubin (NEGATIVE) Urine Ictotest Urine Urobilinogen (<2.0) EU/dL Ur Leukocyte Esterase (NEGATIVE) Urine RBC (0-2/HPF) Urine WBC (0-5/HPF) Ur Epithelial Cells (NONE-FEW) Calcium Oxalate Crystal (NEGATIVE) Urine Bacteria (NEGATIVE) Urine Mucus (NONE-MOD) 08/29/17 08/30/17 08/30/17 Range/Units 13:55 06:15 06:15 WBC 3.57 L (4.0-11.0) K/uL RBC 4.21 L (4.50-5.90) M/uL Hgb 9.0 L (13.0-17.0) g/dL Hct 30.2 L (38.0-50.0) % MCV 71.7 L (80.0-98.0) fL MCH 21.4 L (27.0-32.0) pg MCHC 29.8 L (31.0-37.0) g/dL RDW Std Deviation 42.3 (28.0-62.0) fl RDW Coeff of Rosina 16 H (11.0-15.0) % Plt Count 331 (150-400) K/uL MPV 8.80 (7.40-12.00) fL Neut % (Auto) 83.7 H (48.0-80.0) % Lymph % (Auto) 5.3 L (16.0-40.0) % [place] % (Auto) 10.1 (0.0-15.0) % Eos % (Auto) 0.6 (0.0-7.0) % Baso % (Auto) 0.3 (0.0-1.5) % Neut # (Auto) 3.0 (1.4-5.7) K/uL Lymph # (Auto) 0.2 L (0.6-2.4) K/uL [place] # (Auto) 0.4 (0.0-0.8) K/uL Eos # (Auto) 0.0 (0.0-0.7) K/uL Baso # (Auto) 0.0 (0.0-0.1) K/uL Nucleated RBC % 0.0 /100WBC Nucleated RBCs # 0 K/uL INR Sodium 137 (136-148) mmol/L Potassium 4.1 (3.5-5.1) mmol/L Chloride 104 (98-107) mmol/L Carbon Dioxide 26.7 (21.0-32.0) mmol/L BUN 18 (7.0-18.0) mg/dL Creatinine 0.7 L (0.8-1.3) mg/dL Est Cr Clr Drug Dosing 76.50 mL/min Estimated GFR (MDRD) > 60.0 ml/min Glucose 82 (74-106) mg/dL Calcium 8.3 L (8.5-10.1) mg/dL Total Bilirubin 0.4 (0.2-1.0) mg/dL AST 18 (15-37) IU/L ALT 17 (14-63) IU/L Alkaline Phosphatase 48 (46-116) U/L Troponin I (0.000-0.056) ng/mL Total Protein 5.2 L (6.4-8.2) g/dL Albumin 2.6 L (3.4-5.0) g/dL Globulin 2.6 (2.0-3.5) g/dL Albumin/Globulin Ratio 1.0 L (1.3-2.8) Lipase (73-393) U/L Urine Color YELLOW Urine Appearance CLEAR Urine pH 5.0 (5.0-8.0) Ur Specific [place] >= 1.030 (1.001-1.035) Urine Protein TRACE (NEGATIVE) mg/dL Urine Glucose (UA) NEGATIVE (NEGATIVE) mg/dL Urine Ketones 15 H (NEGATIVE) mg/dL Urine Occult Blood NEGATIVE (NEGATIVE) Urine Nitrite NEGATIVE (NEGATIVE) Urine Bilirubin SMALL H (NEGATIVE) Urine Ictotest NEGATIVE Urine Urobilinogen 0.2 (<2.0) EU/dL Ur Leukocyte Esterase NEGATIVE (NEGATIVE) Urine RBC 0-2 (0-2/HPF) Urine WBC 0-2 (0-5/HPF) Ur Epithelial Cells RARE (NONE-FEW) Calcium Oxalate Crystal FEW (NEGATIVE) Urine Bacteria FEW (NEGATIVE) Urine Mucus LIGHT (NONE-MOD) Med Orders - Current: Current Medications Albuterol/Ipratropium (Duoneb 3.0-0.5 Mg/3 Ml) 3 ml NEB Q4HRRT PRN PRN Reason: Shortness Of Breath/wheezing Heparin Sodium (Porcine) (Heparin Sodium) 5,000 units SUBCUT Q12H AMADO Last Admin: 08/30/17 02:39 Dose: 5,000 units Sodium Chloride (Normal Saline) 1,000 mls @ 125 mls/hr IV STAT AMADO Last Admin: 08/30/17 06:22 Dose: 125 mls/hr Ketorolac Tromethamine (Toradol) 15 mg IVPUSH Q6H PRN PRN Reason: Abdominal Pain Last Admin: 08/30/17 02:35 Dose: 15 mg Ondansetron HCl (Zofran) 4 mg IVPUSH Q4H PRN PRN Reason: Nausea Discontinued Medications Benzocaine (Hurricaine One 20%) 1 each MUCMEM ONETIME ONE Stop: 08/29/17 16:44 Last Admin: 08/29/17 17:01 Dose: 1 each Ketorolac Tromethamine (Toradol) 30 mg IVPUSH ONETIME ONE Stop: 08/29/17 12:23 Last Admin: 08/29/17 13:14 Dose: Not Given Metoclopramide HCl (Reglan) 5 mg IV ONETIME ONE Stop: 08/29/17 14:32 Last Admin: 08/29/17 15:04 Dose: 5 mg Morphine Sulfate (Morphine) 2 mg IVPUSH ONETIME ONE Stop: 08/29/17 12:28 Last Admin: 08/29/17 12:42 Dose: 2 mg Ondansetron HCl (Zofran) 8 mg IVPUSH ONETIME ONE Stop: 08/29/17 12:23 Last Admin: 08/29/17 12:43 Dose: 8 mg - Exam Quality Assessment: DVT Prophylaxis General: Alert, Oriented, Cooperative, No Acute Distress HEENT: Other (NG tube placed in the left nare.) Lungs: Clear to Auscultation, Normal Respiratory Effort Cardiovascular: Regular Rate, Regular Rhythm GI/Abdominal Exam: Normal Bowel Sounds, No Organomegaly, No Abnormal Bruit, No Mass, Pelvis Stable, Distended, Tender (Minimal tenderness with palpation.) Extremities: Normal Inspection, Normal Range of Motion, Non-Tender, No Pedal Edema, Normal Capillary Refill Peripheral Pulses: 2+: Radial (L), Radial (R), Posterior Tibial (L), Posterior Tibial (R) Skin: Warm, Dry, Intact Neurological: No New Focal Deficit Psy/Mental Status: Alert, Normal Affect, Normal Mood - Problem List & Annotations (1) Abdominal pain SNOMED Code(s): 14403296 Code(s): R10.9 - UNSPECIFIED ABDOMINAL PAIN Status: Acute Current Visit: Yes (2) Cecal cancer Status: Chronic Current Visit: No Annotation/Comment:: metastatic cecal carcinoma (3) Bowel obstruction SNOMED Code(s): 81986080 Code(s): K56.609 - UNSP INTESTNL OBST, UNSP TO PARTIAL VERSUS COMPLETE OBST Status: Acute Current Visit: Yes - Problem List Review Problem List Initiated/Reviewed/Updated: Yes - My Orders Last 24 Hours: My Active Orders 08/29/17 15:12 Height and Weight [RC] DAILY Intake and Output [RC] Q12H Oxygen Therapy [RC] PRN Pulse Oximetry [RC] CONTINUOUS Up With Assistance [RC] ASDIRECTED VTE/DVT Education [RC] PER UNIT ROUTINE Vital Signs [RC] Q4H Albuterol/Ipratropium [DuoNeb 3.0-0.5 MG/3 ML] 3 ml NEB Q4HRRT PRN Ondansetron [Zofran] 4 mg IVPUSH Q4H PRN 08/29/17 15:13 Notify Provider Vital Signs [RC] ASDIRECTED Nasogastric Orogastric Tube Insertion [OM.PC] Urgent Sequential Compression Device [OM.PC] Per Unit Routine 08/29/17 15:15 RT Aerosol Therapy [RC] ASDIRECTED Heparin Sodium 5,000 units SUBCUT Q12H 08/29/17 15:44 Ketorolac [Toradol] 15 mg IVPUSH Q6H PRN 08/30/17 07:43 Abdomen 2V AP Flat Upright [CR] Routine - Plan Plan:: 71-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 #1. Abdominal pain with small bowel obstruction: -NG tube has drained 50 mL since being placed. Patient remains nothing by mouth. Abdominal pain and distention have improved. -We talked about possible transfer to [place] yesterday for assessment by Dr. Tinajero who did the patient's colon resection. Patient does not want to be transferred but wants to see if he continues to improve with the NG tube. -Repeat abdominal x-ray is pending this morning. Abdominal x-ray done last night showed that the NG tube is in the distal portion of the stomach and that there was a partial small bowel obstruction. -If the Patient is feeling better this afternoon and the repeat abdominal x-ray this morning shows improvement, we can try to remove the NG tube this afternoon. DVT prophylaxis: SCDs and heparin Disposition: 1-2 days pending improvement.
--- NOTE | 2017-08-30 11:40 | CR ---
EXAMINATION: Abdomen HISTORY: Small bowel obstruction COMPARISON: 08/29/2017 TECHNIQUE: AP and upright views of the abdomen FINDINGS: The NG tube has and withdrawn and needs to be advanced at least 11 to 12 cm. There are a few mildly prominent loops of small bowel again noted measuring up to 3.5 cm. No free air under the diaphragm. Clips project over the left upper quadrant. Median sternotomy wires are noted. Small amount of gas noted within the colon and rectum. Clips are noted within the pelvis. Osseous str uctures appear osteopenic. IMPRESSION: 1. Mildly prominent loops of small bowel again noted. 2. The NG tube has been withdrawn and needs to be advanced.
[2017-08-31] MEDS: Heparin Sodium 5,000 Units/ML Vial SUBCUT SCH ×2 (02:51→15:37)
[2017-08-31 06:28] LABS: CHLORIDE,CL 104 mmol/L (98-107); SODIUM,NA 138 mmol/L (136-148)
[2017-08-31] MEDS: Sodium Chloride 0.9% 1,000 ML IV SCH (07:30)
--- NOTE | 2017-08-31 09:11 | PCM.PN ---
- General Info Date of Service: 08/31/17 Admission Dx/Problem (Free Text): Admission Diagnosis/Problem Admission Diagnosis/Problem Abdominal pain Subjective Update: Patient is doing well this morning. He has no acute concerns. The nasogastric tube remains in place and continues to drain fluid. Patient still does not have much of an appetite but denies any nausea or vomiting. He thinks that his abdominal distention is improved since admission. He is passing gas but has not had a bowel movement. Is currently on IV fluids. He is nothing by mouth. Functional Status: Reports: Pain Controlled, Ambulating, Urinating - Review of Systems General: Reports: Weakness. Denies: Appetite HEENT: Reports: No Symptoms Pulmonary: Reports: No Symptoms Cardiovascular: Reports: No Symptoms Gastrointestinal: Reports: Abdominal Pain (Improved), Decreased Appetite, Flatus , Other (Distention) Genitourinary: Reports: No Symptoms Musculoskeletal: Reports: No Symptoms Skin: Reports: No Symptoms Neurological: Reports: No Symptoms Psychiatric: Reports: No Symptoms - Patient Data Vitals - Most Recent: Last Vital Signs Temp 98.7 F 08/31/17 07:48 Pulse 79 08/31/17 07:48 Resp 18 08/31/17 07:48 BP 176/87 H 08/31/17 07:48 Pulse Ox 99 08/31/17 07:48 Weight - Most Recent: 123 lb 7.342 oz I&O - Last 24 Hours: Intake & Output 08/30/17 08/31/17 08/31/17 22:59 06:59 14:59 Intake Total 1997 1000 Output Total 550 1000 Balance 1447 -1000 1000 Lab Results Last 24 Hours: Laboratory Results - last 24 hr 08/31/17 08/31/17 Range/Units 05:20 05:20 WBC 5.27 (4.0-11.0) K/uL RBC 4.41 L (4.50-5.90) M/uL Hgb 9.4 L (13.0-17.0) g/dL Hct 31.6 L (38.0-50.0) % MCV 71.7 L (80.0-98.0) fL MCH 21.3 L (27.0-32.0) pg MCHC 29.7 L (31.0-37.0) g/dL RDW Std Deviation 41.7 (28.0-62.0) fl RDW Coeff of Rosina 16 H (11.0-15.0) % Plt Count 366 (150-400) K/uL MPV 8.90 (7.40-12.00) fL Neut % (Auto) 90.7 H (48.0-80.0) % Lymph % (Auto) 5.5 L (16.0-40.0) % [place] % (Auto) 3.4 (0.0-15.0) % Eos % (Auto) 0.2 (0.0-7.0) % Baso % (Auto) 0.2 (0.0-1.5) % Neut # (Auto) 4.8 (1.4-5.7) K/uL Lymph # (Auto) 0.3 L (0.6-2.4) K/uL [place] # (Auto) 0.2 (0.0-0.8) K/uL Eos # (Auto) 0.0 (0.0-0.7) K/uL Baso # (Auto) 0.0 (0.0-0.1) K/uL Nucleated RBC % 0.0 /100WBC Nucleated RBCs # 0 K/uL Sodium 138 (136-148) mmol/L Potassium 3.9 (3.5-5.1) mmol/L Chloride 104 (98-107) mmol/L Carbon Dioxide 20.2 L (21.0-32.0) mmol/L BUN 13 (7.0-18.0) mg/dL Creatinine 0.7 L (0.8-1.3) mg/dL Est Cr Clr Drug Dosing 75.56 mL/min Estimated GFR (MDRD) > 60.0 ml/min Glucose 60 L (74-106) mg/dL Calcium 8.6 (8.5-10.1) mg/dL Med Orders - Current: Current Medications Albuterol/Ipratropium (Duoneb 3.0-0.5 Mg/3 Ml) 3 ml NEB Q4HRRT PRN PRN Reason: Shortness Of Breath/wheezing Heparin Sodium (Porcine) (Heparin Sodium) 5,000 units SUBCUT Q12H AMADO Last Admin: 08/31/17 02:51 Dose: 5,000 units Sodium Chloride (Normal Saline) 1,000 mls @ 125 mls/hr IV STAT AMADO Last Admin: 08/31/17 07:30 Dose: 125 mls/hr Ketorolac Tromethamine (Toradol) 15 mg IVPUSH Q6H PRN PRN Reason: Abdominal Pain Last Admin: 08/30/17 02:35 Dose: 15 mg Ondansetron HCl (Zofran) 4 mg IVPUSH Q4H PRN PRN Reason: Nausea Discontinued Medications Benzocaine (Hurricaine One 20%) 1 each MUCMEM ONETIME ONE Stop: 08/29/17 16:44 Last Admin: 08/29/17 17:01 Dose: 1 each Ketorolac Tromethamine (Toradol) 30 mg IVPUSH ONETIME ONE Stop: 08/29/17 12:23 Last Admin: 08/29/17 13:14 Dose: Not Given Metoclopramide HCl (Reglan) 5 mg IV ONETIME ONE Stop: 08/29/17 14:32 Last Admin: 08/29/17 15:04 Dose: 5 mg Morphine Sulfate (Morphine) 2 mg IVPUSH ONETIME ONE Stop: 08/29/17 12:28 Last Admin: 08/29/17 12:42 Dose: 2 mg Ondansetron HCl (Zofran) 8 mg IVPUSH ONETIME ONE Stop: 08/29/17 12:23 Last Admin: 08/29/17 12:43 Dose: 8 mg - Exam General: Alert, Oriented, Cooperative, No Acute Distress Lungs: Clear to Auscultation, Normal Respiratory Effort Cardiovascular: Regular Rate, Regular Rhythm GI/Abdominal Exam: Normal Bowel Sounds, Soft, Non-Tender, No Organomegaly, No Abnormal Bruit, No Mass, Pelvis Stable, Distended (But improved) Extremities: Normal Inspection, Normal Range of Motion, Non-Tender, No Pedal Edema, Normal Capillary Refill Peripheral Pulses: 2+: Radial (L), Radial (R), Posterior Tibial (L), Posterior Tibial (R) Skin: Warm, Dry, Intact Neurological: No New Focal Deficit Psy/Mental Status: Alert, Normal Affect, Normal Mood - Problem List & Annotations (1) Abdominal pain SNOMED Code(s): 15264327 Code(s): R10.9 - UNSPECIFIED ABDOMINAL PAIN Status: Acute Current Visit: Yes (2) Cecal cancer Status: Chronic Current Visit: No Annotation/Comment:: metastatic cecal carcinoma (3) Bowel obstruction SNOMED Code(s): 27824666 Code(s): K56.609 - UNSP INTESTNL OBST, UNSP TO PARTIAL VERSUS COMPLETE OBST Status: Acute Current Visit: Yes - Problem List Review Problem List Initiated/Reviewed/Updated: Yes - My Orders Last 24 Hours: My Active Orders 09/01/17 05:11 BASIC METABOLIC PANEL,BMP [CHEM] AM CBC WITH AUTO DIFF [HEME] AM - Plan Plan:: 71-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 #1. Abdominal pain with small bowel obstruction: -NG tube has drained 450 mL since being placed. The NG tube will be clamped and the patient will be started on a clear liquid diet. If he tolerates this well we can advance his diet and remove the NG tube. I spoke with the patient's oncologist this morning, Dr. Valdes, in [place], [place] this morning. The patient was scheduled to do another chemotherapy treatment but the oncologist states that he will reschedule the patient for next week and that he recommends that the patient get this acute problem resolved first. DVT prophylaxis: SCDs and heparin Disposition: 1-2 days pending improvement.
[2017-09-01] MEDS: Heparin Sodium 5,000 Units/ML Vial SUBCUT SCH (03:12)
[2017-09-01 05:51] LABS: CHLORIDE,CL 101 mmol/L (98-107); SODIUM,NA 135 mmol/L (136-148)
[2017-09-01] MEDS ORDERED: Polyethylene Glycol 3350 Powder 17 GM Packet PO PRN (07:21)
[2017-09-01] MEDS ORDERED: Acetaminophen 325 MG Tab PO ONE (08:03)
[2017-09-01] MEDS ORDERED: Lactulose Soln 10 GM/15 ML 15 ML UD Cup PO SCH (09:00)
[2017-09-01 12:43] VITALS: BP 126/75
--- NOTE | 2017-09-03 11:36 | PCM.DCSUM1 ---
Discharge Summary - Hospital Course Free Text/Narrative:: Admission diagnosis: #1. Metastatic small bowel carcinoma #2. Partial small bowel obstruction Discharge diagnosis: #1. Metastatic small bowel carcinoma #2. 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 An NG tube was placed and the patient was made nothing by mouth on admission. The NG tube drained [address]. Patient noted improvement in his distention and he was able to pass gas and on the day of discharge did have a bowel movement. I did speak with Dr. Chairez, surgeon, just in case the patient needed to be assessed for possible surgical operation. She recommended that the patient did need surgical interventions that he be shipped back to [place] to be seen by Dr. Tinajero, surgeon, who did the bowel resection on the patient. This was discussed with the patient and he wanted to stay and see if there is improvement with the NG tube which there was. Patient was also scheduled for a chemotherapy treatment while admitted. I talked with his oncologist, Dr. Valdes in [place], [place] and he stated that there was no need for the patient to go to [place] and that we needed to take care of the acute issue at hand. This was relayed to the patient and he was okay with that plan going forward. At the time of discharge, the patient's belly was less distended, he was passing gas and did have a bowel movement. He was tolerating clear liquids. He was ambulating with the assistance of his . - Discharge Data Discharge Date: 09/01/17 Discharge Disposition: Home, Self-Care 01 Condition: Good - Discharge Diagnosis/Problem(s) (1) Abdominal pain SNOMED Code(s): 89851252 ICD Code: R10.9 - UNSPECIFIED ABDOMINAL PAIN Status: Acute (2) Cecal cancer Status: Chronic Problem Details: metastatic cecal carcinoma (3) Bowel obstruction SNOMED Code(s): 67854481 ICD Code: K56.609 - UNSP INTESTNL OBST, UNSP TO PARTIAL VERSUS COMPLETE OBST Status: Acute - Patient Instructions Diet: Usual Diet as Tolerated Diet, Other: advance diet slowly and as tolerated Activity: As Tolerated Driving: Do Not Drive Showering/Bathing: May Shower Notify Provider of: Fever, Increased Pain, Nausea and/or Vomiting - Discharge Plan Home Medications: Home Meds Aspirin [[employer] Aspirin] 81 mg PO DAILY 10/12/16 [History] Cholecalciferol (Vitamin D3) [Vitamin D3] 1,000 units PO DAILY 10/12/16 [History ] Multivitamin [Multivitamins] 1 tab PO DAILY 10/12/16 [History] Simvastatin [Zocor] 20 mg PO BEDTIME 10/12/16 [History] Ondansetron [Zofran ODT] 4 mg PO Q8H PRN 01/24/17 [History] Leuprolide [Lupron Dep[place] 1-Month] 3.75 mg IM ASDIRECTED 06/07/17 [History] Loperamide HCl [Anti-Diarrheal] 1 mg PO ASDIRECTED PRN 06/07/17 [History] Mirtazapine [Remeron] 30 mg PO BEDTIME 06/07/17 [History] Omeprazole 40 mg PO BID 06/07/17 [History] Polyethylene Glycol 3350 [MiraLAX] 17 gm PO DAILY PRN 06/07/17 [History] predniSONE 20 mg PO DAILY 06/07/17 [History] Lactulose [Cephulac] 3 tsp PO BID 08/29/17 [History] Patient Handouts: Small Bowel Obstruction, [id number], Abdominal Pain, Adult , [id number] Referrals: Brennon Garcia MD [Primary Care Provider] - 09/06/17 1:30 pm - Discharge Summary/Plan Comment DC Time >30 min.: No Discharge Summary/Plan Comment: Admission diagnosis: #1. Metastatic small bowel carcinoma #2. Partial small bowel obstruction Discharge diagnosis: #1. Metastatic small bowel carcinoma #2. 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 An NG tube was placed and the patient was made nothing by mouth on admission. The NG tube drained [address]. Patient noted improvement in his distention and he was able to pass gas and on the day of discharge did have a bowel movement. I did speak with Dr. Chairez, surgeon, just in case the patient needed to be assessed for possible surgical operation. She recommended that the patient did need surgical interventions that he be shipped back to [place] to be seen by Dr. Tinajero, surgeon, who did the bowel resection on the patient. This was discussed with the patient and he wanted to stay and see if there is improvement with the NG tube which there was. Patient was also scheduled for a chemotherapy treatment while admitted. I talked with his oncologist, Dr. Valdes in [place], [place] and he stated that there was no need for the patient to go to [place] and that we needed to take care of the acute issue at hand. This was relayed to the patient and he was okay with that plan going forward. At the time of discharge, the patient's belly was less distended, he was passing gas and did have a bowel movement. He was tolerating clear liquids. He was ambulating with the assistance of his . Discharge plan: -Patient has a follow-up appointment with his PCP, Dr. Brennon Garcia on September 06, 2017. -All home medications were restarted. -Patient was instructed to advance his diet slowly and as tolerated. Patient voiced understanding. - Patient Data Vitals - Most Recent: Last Vital Signs Temp 97.9 F 09/01/17 12:00 Pulse 84 09/01/17 12:00 Resp 16 09/01/17 12:00 BP 126/75 09/01/17 12:00 Pulse Ox 98 09/01/17 12:00 Weight - Most Recent: 124 lb 1.6 oz Med Orders - Current: Current Medications Discontinued Medications Acetaminophen (Tylenol) 650 mg PO Q6H ONE Stop: 09/01/17 08:04 Last Admin: 09/01/17 08:17 Dose: 650 mg Albuterol/Ipratropium (Duoneb 3.0-0.5 Mg/3 Ml) 3 ml NEB Q4HRRT PRN PRN Reason: Shortness Of Breath/wheezing Benzocaine (Hurricaine One 20%) 1 each MUCMEM ONETIME ONE Stop: 08/29/17 16:44 Last Admin: 08/29/17 17:01 Dose: 1 each Heparin Sodium (Porcine) (Heparin Sodium) 5,000 units SUBCUT Q12H [facility] Last Admin: 09/01/17 03:12 Dose: 5,000 units Heparin Sodium (Porcine) (Heparin Lock Flush 100 Units/Ml) 500 units FLUSH ONETIME ONE Stop: 09/01/17 11:29 Last Admin: 09/01/17 11:41 Dose: 500 units Sodium Chloride (Normal Saline) 1,000 mls @ 125 mls/hr IV STAT AMADO Last Admin: 08/31/17 07:30 Dose: 125 mls/hr Ketorolac Tromethamine (Toradol) 30 mg IVPUSH ONETIME ONE Stop: 08/29/17 12:23 Last Admin: 08/29/17 13:14 Dose: Not Given Ketorolac Tromethamine (Toradol) 15 mg IVPUSH Q6H PRN PRN Reason: Abdominal Pain Last Admin: 08/30/17 02:35 Dose: 15 mg Lactulose (Chronulac) 10 gm PO BID AMADO Last Admin: 09/01/17 08:17 Dose: 10 gm Metoclopramide HCl (Reglan) 5 mg IV ONETIME ONE Stop: 08/29/17 14:32 Last Admin: 08/29/17 15:04 Dose: 5 mg Morphine Sulfate (Morphine) 2 mg IVPUSH ONETIME ONE Stop: 08/29/17 12:28 Last Admin: 08/29/17 12:42 Dose: 2 mg Ondansetron HCl (Zofran) 8 mg IVPUSH ONETIME ONE Stop: 08/29/17 12:23 Last Admin: 08/29/17 12:43 Dose: 8 mg Ondansetron HCl (Zofran) 4 mg IVPUSH Q4H PRN PRN Reason: Nausea Polyethylene Glycol (Miralax) 17 gm PO DAILY PRN PRN Reason: Constipation
== END 2017-09-01 12:00 | disposition home or self-care (01) | DRG 389 ==
LOC: MW.ED 12:00 → MW.MS 14:37
PROVIDERS: ADMIT Internal Medicine; ATTEND Internal Medicine
DX: K56.600 Partial intestinal obstruction, unspecified as to cause (principal); C18.0 Malignant neoplasm of cecum; I25.10 Atherosclerotic heart disease of native coronary artery without angina pectoris; E78.00 Pure hypercholesterolemia, unspecified; I10 Essential (primary) hypertension; Z85.46 Personal history of malignant neoplasm of prostate; G62.9 Polyneuropathy, unspecified; Z79.899 Other long term (current) drug therapy; Z95.1 Presence of aortocoronary bypass graft; Z87.891 Personal history of nicotine dependence
CPT/HCPCS: 36415; 74018; 74018-26; 74019; 74019-26; 74022; 74022-26; 80048; 80053; 81001; 83690; 84484; 85025; 85610; 96361; 96374; 96375; 99283; 99285-25; A9270-GY; J1642; J1644; J1885; J2270; J2405; J2765; J7040

== ENCOUNTER 2017-10-13 08:44 | Emergency (ER) | payer OTHER, MEDICARE ==
--- NOTE | 2017-10-13 08:59 | EDM.PDOC ---
ED HPI GENERAL MEDICAL PROBLEM - General Stated Complaint: ONC PAT. Time Seen by Provider: 10/13/17 08:49 - History of Present Illness INITIAL COMMENTS - FREE TEXT/NARRATIVE: HISTORY AND PHYSICAL: History of present illness: Patient is a 71-year-old male with history of small bowel cancer currently undergoing chemotherapy who was sent here from oncology for elevated blood pressure for medical screening this is related to her recent chemotherapeutic agent is given and has had a prior episode that included a workup inclusive of CT scan of the brain that was unremarkable he denies chest pain shortness of breath or other concern apart from mild nausea that is not uncommon for patient. Review of systems: As per history of present illness and below otherwise all systems reviewed and negative. Past medical history: As per history of present illness and as reviewed below otherwise noncontributory. Surgical history: As per history of present illness and as reviewed below otherwise noncontributory. Social history: No reported history of drug or alcohol abuse. Family history: As per history of present illness and as reviewed below otherwise noncontributory. Physical exam: HEENT: Atraumatic, normocephalic, pupils reactive, negative for conjunctival pallor or scleral icterus, mucous membranes moist, throat clear, neck supple, nontender, trachea midline. Lungs: Clear to auscultation, breath sounds equal bilaterally, chest nontender. Heart: S1S2, regular, negative for clicks, rubs, or JVD. Abdomen: Soft, nondistended, nontender. Negative for masses or hepatosplenomegaly. Negative for costovertebral tenderness. Pelvis: Stable nontender. Genitourinary: Deferred. Rectal: Deferred. Extremities: Atraumatic, negative for cords or calf pain. Neurovascular unremarkable. Neuro: Awake, alert, oriented. Cranial nerves II through XII unremarkable. Cerebellum unremarkable. Motor and sensory unremarkable throughout. Exam nonfocal. 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 - Related Data Allergies Allergy/AdvReac Type Severity Reaction Status Date / Time No Known Allergies Allergy Verified 10/13/17 08:59 Home Meds: Home Meds Aspirin [[place] Aspirin] 81 mg PO DAILY 10/12/16 [History] Cholecalciferol (Vitamin D3) [Vitamin D3] 1,000 units PO DAILY 10/12/16 [History ] Multivitamin [Multivitamins] 1 tab PO DAILY 10/12/16 [History] Simvastatin [Zocor] 20 mg PO BEDTIME 10/12/16 [History] Ondansetron [Zofran ODT] 4 mg PO Q8H PRN 01/24/17 [History] Leuprolide [Lupron Depot 1-Month] 3.75 mg IM ASDIRECTED 06/07/17 [History] Loperamide HCl [Anti-Diarrheal] 1 mg PO ASDIRECTED PRN 06/07/17 [History] Mirtazapine [Remeron] 30 mg PO BEDTIME 06/07/17 [History] Omeprazole 40 mg PO BID 06/07/17 [History] Polyethylene Glycol 3350 [MiraLAX] 17 gm PO DAILY PRN 06/07/17 [History] predniSONE 20 mg PO DAILY 06/07/17 [History] Lactulose [Cephulac] 3 tsp PO BID 08/29/17 [History] Past Medical History HEENT History: Reports: None Cardiovascular History: Reports: CAD, High Cholesterol, Hypertension, PVD Other Cardiovascular History: coronary artherosclerosis Respiratory History: Reports: Sleep Apnea Other Respiratory History: sleep apnea in the past (had uvuloplasty for this) Gastrointestinal History: Reports: Chronic Diarrhea, Colon Polyp, Irritable Bowel Syndrome, Other (See Below) Other Gastrointestinal History: Bowel Obstruction in November 2016 Genitourinary History: Reports: Renal Calculus Other Genitourinary History: h/o prostate cancer 4 years ago with radical prostatectomy Musculoskeletal History: Reports: Arthritis, Fracture, Osteoporosis Other Musculoskeletal History: hx fx hand Neurological History: Reports: Neuropathy, Peripheral Psychiatric History: Reports: None Hematologic History: Reports: Anemia Oncologic (Cancer) History: Reports: Basal Cell Carcinoma, Colon, Prostate Dermatologic History: Reports: Other (See Below) Other Dermatologic History: raynauds - Infectious Disease History Infectious Disease History: Reports: Mumps - Past Surgical History Head Surgeries/Procedures: Reports: None HEENT Surgical History: Reports: Cataract Surgery, Tonsillectomy, Other (See Below) Other HEENT Surgeries/Procedures: hx cataract surgery and eye surgery for infection, hx of uvuloplasty with tonsillectomy Cardiovascular Surgical History: Reports: Coronary Artery Bypass, Vascular Surgery Respiratory Surgical History: Reports: None GI Surgical History: Reports: Appendectomy, Colonoscopy Male Surgical History: Reports: Prostatectomy Dermatological Surgical History: Reports: Skin Biopsy Social & Family History - Family History Family Medical History: Noncontributory Cardiac: Reports: Other (See Below) Other Cardiac Family History: Father had a pacemaker Oncologic: Reports: Other (See Below) Other Oncologic Family History: Family Hx of CA of unknown type - Caffeine Use Caffeine Use: Reports: Coffee - Living Situation & Occupation Living situation: Reports: ED ROS GENERAL - Review of Systems Review Of Systems: ROS reveals no pertinent complaints other than HPI. ED EXAM, GENERAL - Physical Exam Exam: See Below (See dictation) Course - Vital Signs Last Recorded V/S: Last Vital Signs Temp 36.3 C 10/13/17 09:01 Pulse 71 10/13/17 09:45 Resp 21 H 10/13/17 09:45 BP 155/113 H 10/13/17 09:45 Pulse Ox 97 10/13/17 09:45 - Orders/Labs/Meds Orders: Active Orders 24 hr Category Date Time Status Cardiac Monitoring [RC] . DIRECTED Care 10/13/17 08:54 Active EKG Documentation Completion [RC] STAT Care 10/13/17 08:54 Active Labs: Laboratory Tests 10/13/17 10/13/17 10/13/17 Range/Units 08:39 08:39 08:39 WBC 7.25 (4.0-11.0) K/uL RBC 4.85 (4.50-5.90) M/uL Hgb 10.9 L (13.0-17.0) g/dL Hct 35.6 L (38.0-50.0) % MCV 73.4 L (80.0-98.0) fL MCH 22.5 L (27.0-32.0) pg MCHC 30.6 L (31.0-37.0) g/dL RDW Std Deviation 57.8 (28.0-62.0) fl RDW Coeff of Rosina 23 H (11.0-15.0) % Plt Count 299 (150-400) K/uL MPV 8.90 (7.40-12.00) fL Neut % (Auto) 90.2 H (48.0-80.0) % Lymph % (Auto) 5.1 L (16.0-40.0) % [place] % (Auto) 4.3 (0.0-15.0) % Eos % (Auto) 0.3 (0.0-7.0) % Baso % (Auto) 0.1 (0.0-1.5) % Neut # (Auto) 6.5 H (1.4-5.7) K/uL Lymph # (Auto) 0.4 L (0.6-2.4) K/uL [place] # (Auto) 0.3 (0.0-0.8) K/uL Eos # (Auto) 0.0 (0.0-0.7) K/uL Baso # (Auto) 0.0 (0.0-0.1) K/uL Nucleated RBC % 0.0 /100WBC Nucleated RBCs # 0 K/uL INR 0.97 Sodium 138 (136-148) mmol/L Potassium 3.7 (3.5-5.1) mmol/L Chloride 100 (98-107) mmol/L Carbon Dioxide 33.2 H (21.0-32.0) mmol/L BUN 17 (7.0-18.0) mg/dL Creatinine 0.7 L (0.8-1.3) mg/dL Est Cr Clr Drug Dosing 74.05 mL/min Estimated GFR (MDRD) > 60.0 ml/min Glucose 110 H (74-106) mg/dL Calcium 9.3 (8.5-10.1) mg/dL Total Bilirubin 0.4 (0.2-1.0) mg/dL AST 23 (15-37) IU/L ALT 21 (14-63) IU/L Alkaline Phosphatase 60 (46-116) U/L Troponin I < 0.050 (0.000-0.056) ng/mL Total Protein 6.8 (6.4-8.2) g/dL Albumin 3.4 (3.4-5.0) g/dL Globulin 3.4 (2.0-3.5) g/dL Albumin/Globulin Ratio 1.0 L (1.3-2.8) Meds: Medications Discontinued Medications Generic Name Dose Route Start Last Admin Trade Name Freq PRN Reason Stop Dose Admin Morphine Sulfate 2 mg 10/13/17 09:44 10/13/17 09:55 Morphine IVPUSH 10/13/17 09:45 2 mg ONETIME ONE Administration Ondansetron HCl 4 mg 10/13/17 09:44 10/13/17 09:52 Zofran IVPUSH 10/13/17 09:45 4 mg ONETIME ONE Administration Departure - Departure Time of Disposition: 10:10 Disposition: Home, Self-Care 01 Condition: Good Clinical Impression: Cancer of small intestine Hypertension Qualifiers: Hypertension type: essential hypertension Qualified Code(s): I10 - Essential ( primary) hypertension - Discharge Information Referrals: Brennon Garcia MD [Primary Care Provider] - Additional Instructions: The following information is given to patients seen in the emergency department who are being discharged to home. This information is to outline your options for follow-up care. We provide all patients seen in our emergency department with a follow-up referral. The need for follow-up, as well as the timing and circumstances, are variable depending upon the specifics of your emergency department visit. If you don't have a primary care physician on staff, we will provide you with a referral. We always advise you to contact your personal physician following an emergency department visit to inform them of the circumstance of the visit and for follow-up with them and/or the need for any referrals to a consulting specialist. The emergency department will also refer you to a specialist when appropriate. This referral assures that you have the opportunity for followup care with a specialist. All of these measure are taken in an effort to provide you with optimal care, which includes your followup. Under all circumstances we always encourage you to contact your private physician who remains a resource for coordinating your care. When calling for followup care, please make the office aware that this follow-up is from your recent emergency room visit. If for any reason you are refused follow-up, please contact the [facility] emergency department at and asked to speak to the emergency department charge nurse. Follow-up private medical doctor return as needed as discussed - My Orders Last 24 Hours: My Active Orders 10/13/17 08:54 Cardiac Monitoring [RC] . DIRECTED EKG Documentation Completion [RC] STAT - Assessment/Plan Last 24 Hours: My Active Orders 10/13/17 08:54 Cardiac Monitoring [RC] . DIRECTED EKG Documentation Completion [RC] STAT
[2017-10-13 09:17] LABS: CHLORIDE,CL 100 mmol/L (98-107); SODIUM,NA 138 mmol/L (136-148)
--- NOTE | 2017-10-13 09:18 | CR ---
EXAMINATION: Portable chest radiograph. HISTORY: Shortness of breath. FINDINGS: The trachea is midline. The cardiomediastinal silhouette is within normal limits. No pulmonary infilt rates, effusions or pneumothorax. Right-sided portacatheter is noted. Median sternotomy wires are pre sent. Mild interstitial prominence. Osseous structures appear unremarkable. IMPRESSION: No acute cardiopulmonary process.
[2017-10-13] MEDS ORDERED: Ondansetron 4 MG/2 ML SDV IVPUSH ONE (09:44)
[2017-10-13] MEDS ORDERED: Morphine 2 MG/ML Syringe IVPUSH ONE (09:44)
[2017-10-13 11:11] VITALS: BP 161/98
== END 2017-10-13 10:45 | disposition home or self-care (01) ==
LOC: MW.ED 08:44
DX: I10 Essential (primary) hypertension (principal); C17.9 Malignant neoplasm of small intestine, unspecified; E78.00 Pure hypercholesterolemia, unspecified; Z79.82 Long term (current) use of aspirin; Z79.899 Other long term (current) drug therapy
CPT/HCPCS: 36415; 71045; 80053; 84484; 85025; 85610; 93005; 96374; 96375; 99284; J2270; J2405

== ENCOUNTER 2017-10-13 15:01 | Observation (INO) | payer OTHER, MEDICARE ==
[2017-10-13] MEDS ORDERED: amLODIPine 2.5 MG Tab PO ONE (15:06)
[2017-10-13] MEDS ORDERED: Morphine 2 MG/ML Syringe IVPUSH ONE (15:14)
--- NOTE | 2017-10-13 15:24 | EDM.PDOC ---
ED HPI GENERAL MEDICAL PROBLEM - General Chief Complaint: Cardiovascular Problem Stated Complaint: ONC. PT Time Seen by Provider: 10/13/17 15:05 - History of Present Illness INITIAL COMMENTS - FREE TEXT/NARRATIVE: HISTORY AND PHYSICAL: History of present illness: Patient is a 71-year-old male history small bowel cancer who was seen earlier by myself with cephalgia and elevated blood pressure he is on Avastin as a chemotherapeutic agent that can cause episodic hypertension on his prior evaluation with observation and analgesia his blood pressure improved he was discharged and return to oncology for IV therapy during his stay there is pressure came elevated and he became nauseous oncology called me requesting CT of his brain and initiation of amlodipine 2.5 mg. Patient has had some nausea and vomiting was given Zofran 8 mg prior to arrival to the no other neurological signs or symptoms. Review of systems: As per history of present illness and below otherwise all systems reviewed and negative. Past medical history: As per history of present illness and as reviewed below otherwise noncontributory. Surgical history: As per history of present illness and as reviewed below otherwise noncontributory. Social history: No reported history of drug or alcohol abuse. Family history: As per history of present illness and as reviewed below otherwise noncontributory. Physical exam: HEENT: Atraumatic, normocephalic, pupils reactive, negative for conjunctival pallor or scleral icterus, mucous membranes moist, throat clear, neck supple, nontender, trachea midline. Lungs: Clear to auscultation, breath sounds equal bilaterally, chest nontender. Heart: S1S2, regular, negative for clicks, rubs, or JVD. Abdomen: Soft, nondistended, no localized tenderness. Negative for masses or hepatosplenomegaly. Negative for costovertebral tenderness. Pelvis: Stable nontender. Genitourinary: Deferred. Rectal: Deferred. Extremities: Atraumatic, negative for cords or calf pain. Neurovascular unremarkable. Neuro: Awake, alert, oriented. Follows commands and moves all extremities limit grossly nonfocal exam Diagnostics: CT brain Therapeutics: Morphine sulfate 2 mg IV amlodipine 2.5 mg by mouth Impression: #1 history small bowel carcinoma #2 cephalgia #3 episodic hypertension Definitive disposition and diagnosis as appropriate pending reevaluation and review of above. headache Pain Score (Numeric/FACES): 8 - Related Data Allergies Allergy/AdvReac Type Severity Reaction Status Date / Time No Known Allergies Allergy Verified 10/13/17 15:16 Home Meds: Home Meds Aspirin [[place] Aspirin] 81 mg PO DAILY 10/12/16 [History] Cholecalciferol (Vitamin D3) [Vitamin D3] 1,000 units PO DAILY 10/12/16 [History ] Multivitamin [Multivitamins] 1 tab PO DAILY 10/12/16 [History] Simvastatin [Zocor] 20 mg PO BEDTIME 10/12/16 [History] Ondansetron [Zofran ODT] 4 mg PO Q8H PRN 01/24/17 [History] Leuprolide [Lupron Depot 1-Month] 3.75 mg IM ASDIRECTED 06/07/17 [History] Loperamide HCl [Anti-Diarrheal] 1 mg PO ASDIRECTED PRN 06/07/17 [History] Mirtazapine [Remeron] 30 mg PO BEDTIME 06/07/17 [History] Omeprazole 40 mg PO BID 06/07/17 [History] Polyethylene Glycol 3350 [MiraLAX] 17 gm PO DAILY PRN 06/07/17 [History] predniSONE 20 mg PO DAILY 06/07/17 [History] Lactulose [Cephulac] 3 tsp PO BID 08/29/17 [History] Past Medical History HEENT History: Reports: None Cardiovascular History: Reports: CAD, High Cholesterol, Hypertension, PVD Other Cardiovascular History: coronary artherosclerosis Respiratory History: Reports: Sleep Apnea Other Respiratory History: sleep apnea in the past (had uvuloplasty for this) Gastrointestinal History: Reports: Chronic Diarrhea, Colon Polyp, Irritable Bowel Syndrome, Other (See Below) Other Gastrointestinal History: Bowel Obstruction in November 2016 Genitourinary History: Reports: Renal Calculus Other Genitourinary History: h/o prostate cancer 4 years ago with radical prostatectomy Musculoskeletal History: Reports: Arthritis, Fracture, Osteoporosis Other Musculoskeletal History: hx fx hand Neurological History: Reports: Neuropathy, Peripheral Psychiatric History: Reports: None Hematologic History: Reports: Anemia Oncologic (Cancer) History: Reports: Basal Cell Carcinoma, Colon, Prostate Dermatologic History: Reports: Other (See Below) Other Dermatologic History: raynauds - Infectious Disease History Infectious Disease History: Reports: Mumps - Past Surgical History Head Surgeries/Procedures: Reports: None HEENT Surgical History: Reports: Cataract Surgery, Tonsillectomy, Other (See Below) Other HEENT Surgeries/Procedures: hx cataract surgery and eye surgery for infection, hx of uvuloplasty with tonsillectomy Cardiovascular Surgical History: Reports: Coronary Artery Bypass, Vascular Surgery Respiratory Surgical History: Reports: None GI Surgical History: Reports: Appendectomy, Colonoscopy Male Surgical History: Reports: Prostatectomy Dermatological Surgical History: Reports: Skin Biopsy Social & Family History - Family History Family Medical History: Noncontributory Cardiac: Reports: Other (See Below) Other Cardiac Family History: Father had a pacemaker Oncologic: Reports: Other (See Below) Other Oncologic Family History: Family Hx of CA of unknown type - Caffeine Use Caffeine Use: Reports: Coffee - Living Situation & Occupation Living situation: Reports: ED ROS GENERAL - Review of Systems Review Of Systems: ROS reveals no pertinent complaints other than HPI. ED EXAM, GENERAL - Physical Exam Exam: See Below (See dictation) Course - Vital Signs Last Recorded V/S: Last Vital Signs Temp 36.7 C 10/13/17 15:14 Pulse 108 H 10/13/17 15:14 Resp 16 10/13/17 15:14 BP 181/106 H 10/13/17 15:14 Pulse Ox 96 10/13/17 15:14 - Orders/Labs/Meds Orders: Active Orders 24 hr Category Date Time Status Head wo Cont [CT] Stat Exams 10/13/17 15:05 Ordered Meds: Medications Discontinued Medications Generic Name Dose Route Start Last Admin Trade Name Freq PRN Reason Stop Dose Admin Amlodipine Besylate 2.5 mg 10/13/17 15:06 Norvasc PO 10/13/17 15:07 ONETIME ONE Morphine Sulfate 2 mg 10/13/17 15:14 Morphine IVPUSH 10/13/17 15:15 ONETIME ONE Departure - Departure Time of Disposition: 15:23 Disposition: Home, Self-Care 01 Condition: Good Clinical Impression: Small bowel carcinoma, HTN (hypertension), Cephalgia - My Orders Last 24 Hours: My Active Orders 10/13/17 15:05 Head wo Cont [CT] Stat - Assessment/Plan Last 24 Hours: My Active Orders 10/13/17 15:05 Head wo Cont [CT] Stat
--- NOTE | 2017-10-13 15:49 | CT ---
EXAMINATION: Non contrast CT head. Coronal and sagittal reformats. HISTORY: Pain FINDINGS: No evidence of intra or extra axial hemorrhage, mass, midline shift, hydrocephalus or edema. No hyp oattenuation changes in the major vascular territories to suggest acute infarct. Periventricular and subcortical white matter hypodensities are noted No abnormal intracranial calcifications are detected. No evidence of substantial vascular calcificat ions. The paranasal sinuses and mastoid air cells are well aerated without substantial findings. Pre vious lens extractions. Pituitary fossa appears unremarkable. The calvarium is intact. No evidence o f skull fracture. IMPRESSION: 1. No acute intracranial findings. 2. Mild to moderate small vessel ischemic changes.
[2017-10-13] MEDS ORDERED: Diltiazem 25 MG/5 ML SDV IVPUSH ONE ×2 (16:59→17:01)
[2017-10-13] MEDS ORDERED: Ondansetron 4 MG/2 ML SDV IVPUSH PRN (17:28)
[2017-10-13] MEDS ORDERED: Potassium Chloride 20 MEQ Tab.ER PO ONE (17:28)
[2017-10-13] MEDS: Sodium Chloride 0.9% 1,000 ML IV SCH (17:46)
[2017-10-13] MEDS: Metoprolol Tartrate 50 MG Tab PO SCH (18:01)
[2017-10-13] MEDS ORDERED: Acetaminophen 325 MG/10.15 ML ML PO PRN (18:03)
[2017-10-13] MEDS ORDERED: Ibuprofen 400 MG Tab PO PRN (18:03)
--- NOTE | 2017-10-13 18:05 | PCM.HP ---
H&P History of Present Illness - General Date of Service: 10/14/17 Admit Problem/Dx: Admission Diagnosis/Problem Admission Diagnosis/Problem Hypertension - History of Present Illness Initial Comments - Free Text/Narative: 71 yo male with pmh of metastatic prostate and cecal cancer, currently receiving Avastin as chemotherapy. Patient was brought to the ED twice from oncology clinic for headache and elevated blood pressures int he 180s/100s. He had a CT head which was negative. He denies any blurried vision, fevers, or vomiting. He was referred to admission and on the floor he developed atrial fibrillation with RVR which spotansously converted back to normal sinus rhythm. Patient reports a history of atrial fibrillation. headache Pain Score (Numeric/FACES): 8 Chest Pain Score (Numeric/FACES): 2 - Related Data Allergies/Adverse Reactions: Allergies Allergy/AdvReac Type Severity Reaction Status Date / Time No Known Allergies Allergy Verified 10/13/17 15:16 Home Medications: Home Meds RX: Aspirin [[place] Aspirin] 81 mg PO DAILY 10/12/16 [History] RX: Cholecalciferol (Vitamin D3) [Vitamin D3] 1,000 units PO DAILY 10/12/16 [ History] RX: Multivitamin [Multivitamins] 1 tab PO DAILY 10/12/16 [History] RX: Simvastatin [Zocor] 20 mg PO BEDTIME 10/12/16 [History] RX: Ondansetron [Zofran ODT] 4 mg PO Q8H PRN 01/24/17 [History] RX: Leuprolide [Lupron Depot 1-Month] 3.75 mg IM ASDIRECTED 06/07/17 [History] RX: Loperamide HCl [Anti-Diarrheal] 1 mg PO ASDIRECTED PRN 06/07/17 [History] RX: Mirtazapine [Remeron] 30 mg PO BEDTIME 06/07/17 [History] RX: Omeprazole 40 mg PO BID 06/07/17 [History] RX: Polyethylene Glycol 3350 [MiraLAX] 17 gm PO DAILY PRN 06/07/17 [History] RX: predniSONE 20 mg PO DAILY 06/07/17 [History] RX: Lactulose [Cephulac] 3 tsp PO BID 08/29/17 [History] RX: Metoprolol Tartrate [Lopressor] 50 mg PO Q12HR #60 tablet 10/14/17 [Rx] Past Medical History HEENT History: Reports: None Cardiovascular History: Reports: CAD, High Cholesterol, Hypertension, PVD Other Cardiovascular History: coronary artherosclerosis Respiratory History: Reports: Sleep Apnea Other Respiratory History: sleep apnea in the past (had uvuloplasty for this) Gastrointestinal History: Reports: Chronic Diarrhea, Colon Polyp, Irritable Bowel Syndrome, Other (See Below) Other Gastrointestinal History: Bowel Obstruction in November 2016 Genitourinary History: Reports: Renal Calculus Other Genitourinary History: h/o prostate cancer 4 years ago with radical prostatectomy Musculoskeletal History: Reports: Arthritis, Fracture, Osteoporosis Other Musculoskeletal History: hx fx hand Neurological History: Reports: Neuropathy, Peripheral Psychiatric History: Reports: None Hematologic History: Reports: Anemia Oncologic (Cancer) History: Reports: Basal Cell Carcinoma, Colon, Prostate Dermatologic History: Reports: Other (See Below) Other Dermatologic History: raynauds - Infectious Disease History Infectious Disease History: Reports: Mumps - Past Surgical History Head Surgeries/Procedures: Reports: None HEENT Surgical History: Reports: Cataract Surgery, Tonsillectomy, Other (See Below) Other HEENT Surgeries/Procedures: hx cataract surgery and eye surgery for infection, hx of uvuloplasty with tonsillectomy Cardiovascular Surgical History: Reports: Coronary Artery Bypass, Vascular Surgery Respiratory Surgical History: Reports: None GI Surgical History: Reports: Appendectomy, Colonoscopy Male Surgical History: Reports: Prostatectomy Dermatological Surgical History: Reports: Skin Biopsy Social & Family History - Family History Family Medical History: Noncontributory Cardiac: Reports: Other (See Below) Other Cardiac Family History: Father had a pacemaker Oncologic: Reports: Other (See Below) Other Oncologic Family History: Family Hx of CA of unknown type - Tobacco Use Smoking Status *Q: Former Smoker Used Tobacco, but Quit: Yes Month/Year Tobacco Last Used: 1985 - Caffeine Use Caffeine Use: Reports: Coffee - Recreational Drug Use Recreational Drug Use: No - Living Situation & Occupation Living situation: Reports: H&P Review of Systems - Review of Systems: Review Of Systems: ROS reveals no pertinent complaints other than HPI. Exam - Exam Exam: See Below - Vital Signs Vital Signs: Last Vital Signs Temp 35.4 C 10/13/17 16:31 Pulse 100 10/13/17 18:01 Resp 20 10/13/17 16:31 BP 167/76 H 10/13/17 18:01 Pulse Ox 95 10/13/17 17:28 Weight: 52.844 kg - Exam General: Alert, Oriented HEENT: Mucosa Moist & Steward Lungs: Clear to Auscultation, Normal Respiratory Effort Cardiovascular: Regular Rate, Regular Rhythm GI/Abdominal Exam: Soft, Non-Tender Extremities: Non-Tender Skin: Warm, Dry, Intact - Patient Data Lab Results Last 24 hrs: Laboratory Results - last 24 hr 10/13/17 Range/Units 17:10 Troponin I < 0.050 (0.000-0.056) ng/mL Result Diagrams: 10/14/17 05:05 10/14/17 05:05 Problem List Initiated/Reviewed/Updated: Yes Orders Last 24hrs: Active Orders 24 hr Category Date Time Status Patient Status [ADT] Stat ADT 10/13/17 15:24 Active Oxygen Therapy [RC] PRN Care 10/13/17 17:28 Active Telemetry Monitoring [Cardiac Monitoring] [RC] Q8H Care 10/13/17 16:52 Active Up ad Edwina [RC] ASDIRECTED Care 10/13/17 17:28 Active VTE/DVT Education [RC] PER UNIT ROUTINE Care 10/13/17 17:28 Active Vital Signs [RC] Q4H Care 10/13/17 17:28 Active Regular Diet [DIET] Diet 10/13/17 Breakfast Active BASIC METABOLIC PANEL,BMP [CHEM] AM Lab 10/14/17 05:11 Ordered CBC WITH AUTO DIFF [HEME] AM Lab 10/14/17 05:11 Ordered MAGNESIUM [CHEM] Routine Lab 10/13/17 17:10 Received TROPONIN I [CHEM] Q6H Lab 10/13/17 23:00 Ordered TROPONIN I [CHEM] Q6H Lab 10/14/17 05:00 Ordered Acetaminophen [Tylenol] Med 10/13/17 18:03 Ordered 325 mg PO Q4H PRN Ibuprofen [Motrin] Med 10/13/17 18:03 Ordered 400 mg PO Q6H PRN Metoprolol Tartrate [Lopressor] Med 10/13/17 18:00 Active 50 mg PO Q12HR Ondansetron [Zofran] Med 10/13/17 17:28 Active 4 mg IVPUSH Q4H PRN Sodium Chloride 0.9% [Normal Saline] 1,000 ml Med 10/13/17 17:30 Active IV ASDIRECTED Sequential Compression Device [OM.PC] Per Unit Routine Oth 10/13/17 17:29 Ordered Resuscitation Status Routine Resus Stat 10/13/17 17:28 Ordered Medication Orders Acetaminophen (Tylenol) 325 mg PO Q4H PRN PRN Reason: Pain Sodium Chloride (Normal Saline) 1,000 mls @ 125 mls/hr IV ASDIRECTED [facility] Last Admin: 10/13/17 17:46 Dose: 125 mls/hr Ibuprofen (Motrin) 400 mg PO Q6H PRN PRN Reason: Pain Metoprolol Tartrate (Lopressor) 50 mg PO Q12HR [facility] Last Admin: 10/13/17 18:01 Dose: 50 mg Ondansetron HCl (Zofran) 4 mg IVPUSH Q4H PRN PRN Reason: Nausea Assessment/Plan Comment:: 71 yo male admitted with hypertension and headache who had a short episode of atrial fibrillation with RVR once on the medical floor. Patient was hydrated with IV fluids and started on metoprolol . He was monitored overnight with no events. Headache has resolved and blood pressure has improved. We will discharge him home with metoprolol 50mg BID and he is to continue his daily aspirin. He is to follow up with his oncologist in [place] next Tuesday and he will discuss anticoagulation.
[2017-10-13] MEDS ORDERED: Magnesium Sulfate/Water 2 GM in Premix Bag 1 BAG IV ONE (18:55)
[2017-10-14] MEDS: Sodium Chloride 0.9% 1,000 ML IV SCH ×2 (03:03→10:49)
[2017-10-14 05:48] LABS: CHLORIDE,CL 102 mmol/L (98-107); SODIUM,NA 136 mmol/L (136-148)
[2017-10-14] MEDS: Metoprolol Tartrate 50 MG Tab PO SCH (08:10)
[2017-10-14 10:53] VITALS: BP 126/68
[2017-10-14] MEDS ORDERED: Heparin Sodium 100 Units/ML 3 ML Syringe FLUSH ONE (11:30)
== END 2017-10-14 11:40 | disposition home or self-care (01) ==
LOC: MW.ED 15:01 → MW.MS 16:14
PROVIDERS: ADMIT Internal Medicine; ATTEND Internal Medicine
DX: I10 Essential (primary) hypertension (principal); I25.10 Atherosclerotic heart disease of native coronary artery without angina pectoris; I73.9 Peripheral vascular disease, unspecified; I73.00 Raynaud's syndrome without gangrene; E78.00 Pure hypercholesterolemia, unspecified; G47.30 Sleep apnea, unspecified; G62.9 Polyneuropathy, unspecified; M19.90 Unspecified osteoarthritis, unspecified site; M81.0 Age-related osteoporosis without current pathological fracture; K58.1 Irritable bowel syndrome with constipation; K63.5 Polyp of colon; Z92.21 Personal history of antineoplastic chemotherapy; Z79.82 Long term (current) use of aspirin; Z79.899 Other long term (current) drug therapy; Z87.891 Personal history of nicotine dependence; Z85.46 Personal history of malignant neoplasm of prostate
CPT/HCPCS: 36415; 70450; 80048; 83735; 84484; 85025; 93005; 96374; 99284; A9270; J1642; J2270; J2405; J3475; J7040; 96361; 96375; G0378

== ENCOUNTER 2017-11-02 17:47 | Emergency (ER) | payer OTHER, MEDICARE ==
--- NOTE | 2017-11-02 17:55 | EDM.PDOC ---
ED HPI GENERAL MEDICAL PROBLEM - General Stated Complaint: POSSIBLE BLOOD CLOT/LUNG Time Seen by Provider: 11/02/17 17:54 Source of Information: Reports: Patient - History of Present Illness INITIAL COMMENTS - FREE TEXT/NARRATIVE: HISTORY AND PHYSICAL: History of present illness: [Patient presents at the recommendation of his oncologist [facility] in [place], he had CT imaging chest abdomen pelvis performed due to history of colon cancer is now found to have metastases there is an incidental finding of a pulmonary embolus His oncologist has recommended he come in to receive Lovenox injections at 25 mg subcutaneous twice a day essentially a 3 dose regimen until he'll follow-up with his dominant oncologist Dr. CARREON and Kary [facility] "Dr. Rosales " No fever nausea vomiting chills sweats no chest pain shortness breath headache dizziness palpitation about a urine symptoms CT imaging radiology report emailed for review impression is that of pulmonary embolism in the right lower lobe of the lung pulmonary arteries Review of systems: As per history of present illness and below otherwise all systems reviewed and negative. Past medical history: As per history of present illness and as reviewed below otherwise noncontributory. Surgical history: As per history of present illness and as reviewed below otherwise noncontributory. Social history: No reported history of drug or alcohol abuse. Family history: As per history of present illness and as reviewed below otherwise noncontributory. Physical exam: HEENT: Atraumatic, normocephalic, pupils reactive, negative for conjunctival pallor or scleral icterus, mucous membranes moist, throat clear, neck supple, nontender, trachea midline. Lungs: Clear to auscultation, breath sounds equal bilaterally, chest nontender. Heart: S1S2, regular, negative for clicks, rubs, or JVD. Abdomen: Soft, nondistended, nontender. Negative for masses or hepatosplenomegaly. Negative for costovertebral tenderness. Pelvis: Stable nontender. Genitourinary: Deferred. Rectal: Deferred. Extremities: Atraumatic, negative for cords or calf pain. Neurovascular unremarkable. Neuro: Awake, alert, oriented. Cranial nerves II through XII unremarkable. Cerebellum unremarkable. Motor and sensory unremarkable throughout. Exam nonfocal. Diagnostics: [CBC CMP INR ] Therapeutics: [Lovenox 25 mg subcutaneous twice a day Patient will return to emergency room for dosing tomorrow morning tomorrow evening and then he follows with his oncologist Juan Carlos morning at 8 AM Return to ER if symptoms persist or worsen ] Patient is in agreement with this plan Impression: [Pulmonary embolism Colon cancer with metastasis ] Definitive disposition and diagnosis as appropriate pending reevaluation and review of above. - Related Data Allergies Allergy/AdvReac Type Severity Reaction Status Date / Time No Known Allergies Allergy Verified 11/02/17 18:11 Home Meds: Home Meds Aspirin [[place] Aspirin] 81 mg PO DAILY 10/12/16 [History] Cholecalciferol (Vitamin D3) [Vitamin D3] 1,000 units PO DAILY 10/12/16 [History ] Multivitamin [Multivitamins] 1 tab PO DAILY 10/12/16 [History] Simvastatin [Zocor] 20 mg PO BEDTIME 10/12/16 [History] Ondansetron [Zofran ODT] 4 mg PO Q8H PRN 01/24/17 [History] Leuprolide [Lupron Depot 1-Month] 3.75 mg IM ASDIRECTED 06/07/17 [History] Loperamide HCl [Anti-Diarrheal] 1 mg PO ASDIRECTED PRN 06/07/17 [History] Mirtazapine [Remeron] 30 mg PO BEDTIME 06/07/17 [History] Omeprazole 40 mg PO BID 06/07/17 [History] Polyethylene Glycol 3350 [MiraLAX] 17 gm PO DAILY PRN 06/07/17 [History] predniSONE 20 mg PO DAILY 06/07/17 [History] Lactulose [Cephulac] 3 tsp PO BID 08/29/17 [History] Metoprolol Tartrate [Lopressor] 50 mg PO Q12HR #60 tablet 10/14/17 [Rx] Past Medical History HEENT History: Reports: None Cardiovascular History: Reports: CAD, High Cholesterol, Hypertension, PVD Other Cardiovascular History: coronary artherosclerosis Respiratory History: Reports: Sleep Apnea Other Respiratory History: sleep apnea in the past (had uvuloplasty for this) Gastrointestinal History: Reports: Chronic Diarrhea, Colon Polyp, Irritable Bowel Syndrome, Other (See Below) Other Gastrointestinal History: Bowel Obstruction in November 2016 Genitourinary History: Reports: Renal Calculus Other Genitourinary History: h/o prostate cancer 4 years ago with radical prostatectomy Musculoskeletal History: Reports: Arthritis, Fracture, Osteoporosis Other Musculoskeletal History: hx fx hand Neurological History: Reports: Neuropathy, Peripheral Psychiatric History: Reports: None Hematologic History: Reports: Anemia Oncologic (Cancer) History: Reports: Basal Cell Carcinoma, Colon, Prostate Dermatologic History: Reports: Other (See Below) Other Dermatologic History: raynauds - Infectious Disease History Infectious Disease History: Reports: Mumps - Past Surgical History Head Surgeries/Procedures: Reports: None HEENT Surgical History: Reports: Cataract Surgery, Tonsillectomy, Other (See Below) Other HEENT Surgeries/Procedures: hx cataract surgery and eye surgery for infection, hx of uvuloplasty with tonsillectomy Cardiovascular Surgical History: Reports: Coronary Artery Bypass, Vascular Surgery Respiratory Surgical History: Reports: None GI Surgical History: Reports: Appendectomy, Colonoscopy Male Surgical History: Reports: Prostatectomy Dermatological Surgical History: Reports: Skin Biopsy Social & Family History - Family History Family Medical History: Noncontributory Cardiac: Reports: Other (See Below) Other Cardiac Family History: Father had a pacemaker Oncologic: Reports: Other (See Below) Other Oncologic Family History: Family Hx of CA of unknown type - Caffeine Use Caffeine Use: Reports: Coffee - Living Situation & Occupation Living situation: Reports: ED ROS GENERAL - Review of Systems Review Of Systems: See Below ED EXAM, GENERAL - Physical Exam Exam: See Below Course - Vital Signs Last Recorded V/S: Last Vital Signs Temp 97.4 F 11/02/17 18:15 Pulse 71 11/02/17 18:15 Resp 18 11/02/17 18:15 BP 125/74 11/02/17 18:15 Pulse Ox 98 11/02/17 18:15 - Orders/Labs/Meds Orders: Active Orders 24 hr Category Date Time Status Enoxaparin [Lovenox] Med 11/02/17 19:04 Once 25 mg SUBCUT ONETIME ONE Labs: Laboratory Tests 11/02/17 11/02/17 11/02/17 Range/Units 18:04 18:04 18:04 WBC 7.07 (4.0-11.0) K/uL RBC 4.61 (4.50-5.90) M/uL Hgb 10.7 L (13.0-17.0) g/dL Hct 35.0 L (38.0-50.0) % MCV 75.9 L (80.0-98.0) fL MCH 23.2 L (27.0-32.0) pg MCHC 30.6 L (31.0-37.0) g/dL RDW Std Deviation 65.6 H (28.0-62.0) fl RDW Coeff of Rosina 24 H (11.0-15.0) % Plt Count 253 (150-400) K/uL MPV 9.40 (7.40-12.00) fL Neut % (Auto) 92.3 H (48.0-80.0) % Lymph % (Auto) 2.4 L (16.0-40.0) % Summers % (Auto) 5.1 (0.0-15.0) % Eos % (Auto) 0.1 (0.0-7.0) % Baso % (Auto) 0.1 (0.0-1.5) % Neut # (Auto) 6.5 H (1.4-5.7) K/uL Lymph # (Auto) 0.2 L (0.6-2.4) K/uL Summers # (Auto) 0.4 (0.0-0.8) K/uL Eos # (Auto) 0.0 (0.0-0.7) K/uL Baso # (Auto) 0.0 (0.0-0.1) K/uL Nucleated RBC % 0.0 /100WBC Nucleated RBCs # 0 K/uL INR 0.98 Sodium 137 (136-148) mmol/L Potassium 4.3 (3.5-5.1) mmol/L Chloride 101 (98-107) mmol/L Carbon Dioxide 33.3 H (21.0-32.0) mmol/L BUN 19 H (7.0-18.0) mg/dL Creatinine 0.9 (0.8-1.3) mg/dL Est Cr Clr Drug Dosing 58.98 mL/min Estimated GFR (MDRD) > 60.0 ml/min Glucose 99 (74-106) mg/dL Calcium 9.1 (8.5-10.1) mg/dL Total Bilirubin 0.2 (0.2-1.0) mg/dL AST 20 (15-37) IU/L ALT 21 (14-63) IU/L Alkaline Phosphatase 56 (46-116) U/L Total Protein 6.4 (6.4-8.2) g/dL Albumin 3.2 L (3.4-5.0) g/dL Globulin 3.2 (2.0-3.5) g/dL Albumin/Globulin Ratio 1.0 L (1.3-2.8) Departure - Departure Time of Disposition: 19:10 Disposition: Home, Self-Care 01 Condition: Good Clinical Impression: Pulmonary embolism - Discharge Information Referrals: PCP,None [Primary Care Provider] - Additional Instructions: Return tomorrow morning 12 hours from injection dose, approximately 7 AM, we will repeat dose again 7 PM, on Tuesday you will be following with your oncologist for dosing and potential redirection of treatment Return to emergency room if new or concerning symptoms develop such as bleeding bruising etc. The following information is given to patients seen in the emergency department who are being discharged to home. This information is to outline your options for follow-up care. We provide all patients seen in our emergency department with a follow-up referral. The need for follow-up, as well as the timing and circumstances, are variable depending upon the specifics of your emergency department visit. If you don't have a primary care physician on staff, we will provide you with a referral. We always advise you to contact your personal physician following an emergency department visit to inform them of the circumstance of the visit and for follow-up with them and/or the need for any referrals to a consulting specialist. The emergency department will also refer you to a specialist when appropriate. This referral assures that you have the opportunity for follow-up care with a specialist. All of these measure are taken in an effort to provide you with optimal care, which includes your follow-up. Under all circumstances we always encourage you to contact your private physician who remains a resource for coordinating your care. When calling for follow-up care, please make the office aware that this follow-up is from your recent emergency room visit. If for any reason you are refused follow-up, please contact the [facility] emergency department at and asked to speak to the emergency department charge nurse. - My Orders Last 24 Hours: My Active Orders 11/02/17 19:04 Enoxaparin [Lovenox] 25 mg SUBCUT ONETIME ONE - Assessment/Plan Last 24 Hours: My Active Orders 11/02/17 19:04 Enoxaparin [Lovenox] 25 mg SUBCUT ONETIME ONE
[2017-11-02 18:54] LABS: CHLORIDE,CL 101 mmol/L (98-107); SODIUM,NA 137 mmol/L (136-148)
[2017-11-02] MEDS ORDERED: Enoxaparin 100 MG/1 ML Syringe SUBCUT ONE (19:04)
[2017-11-02 19:26] VITALS: BP 128/74
== END 2017-11-02 19:33 | disposition home or self-care (01) ==
LOC: MW.ED 17:47
DX: I26.99 Other pulmonary embolism without acute cor pulmonale (principal); C18.9 Malignant neoplasm of colon, unspecified; C79.9 Secondary malignant neoplasm of unspecified site; Z79.82 Long term (current) use of aspirin; E78.00 Pure hypercholesterolemia, unspecified; I10 Essential (primary) hypertension
CPT/HCPCS: 36415; 80053; 85025; 85610; 96372; 99282; J1650